=== PATIENT | male | born 1950 | race Caucasian/White ===

== ENCOUNTER 2016-08-31 15:18 | Emergency (ER) | payer MEDICARE, OTHER ==
[~2016-08-31] VITALS: Ht 180.3 cm; Wt 90.7 kg
[~2016-08-31 15:18] MED LIST: ASP325T NG; ASPI-999 PO; ATEN50TA PO; BENA1TAB12 PO; BENA1TAB3 PO; BENA20TA2 PO; BNZ20T PO; DABI150C5 PO; DILT120C85 PO; DILT240C PO; FEBU80TA PO; HYDR-2890 PO; OXYC-471 PO; SIMV20TA3 PO
[2016-08-31] MEDS ORDERED: BENA1TAB14 PO (15:50)
[2016-08-31] MEDS ORDERED: HYDR-3820 PO (15:50)
--- NOTE | 2016-08-31 16:30 | ED General ---
General Chief Complaint: Lower Extremity Stated Complaint: SWELLING IN FEET Nursing Triage Note: BILAT PEDAL EDEMA X2 WEEKS. Nursing Sepsis Screen: No Definite Risk Source of Information: Patient, Family Exam Limitations: No Limitations History of Present Illness Time Seen by Provider: 16:29 Allergies and Home Medications Allergies Coded Allergies: naproxen (Verified Allergy, RASH, 02/04/11) Home Medications Aspirin 81 Mg Tab.chew, 81 MG PO DAILY, (Reported) Atenolol 50 Mg Tablet, 50 MG PO DAILY, (Reported) Benazepril/Hydrochlorothiazide 1 Each Tablet, 1 EACH PO DAILY, (Reported) Dabigatran Etexilate Mesylate 150 Mg Capsule, 150 MG PO BID, (Reported) Diltiazem HCl 120 Mg Capsule.er, 120 MG PO HS, (Reported) Diltiazem Hcl 240 Mg Cap.sr.24h, 240 MG PO DAILY, (Reported) Hydrocodone/Acetaminophen 1 Each Tablet, 2 EACH PO DAILY, (Reported) Simvastatin 20 Mg Tablet, 20 MG PO HS, (Reported) Past Zemeeje-Zqoylw-Yhdurq Hx Patient Social History Alcohol Use: Regular Use Recreational Drug Use: Yes (POT) Smoking Status: Former Smoker Recent Foreign Travel: No Contact w/Someone Who Travel: No Recent Infectious Disease Expo: No Recent Hopitalizations: Yes Surgeries HX Surgeries: Yes (left hip replaced , cataracts, spinal (laminectomy)) Respiratory Hx Respiratory Disorders: No Cardiovascular Hx Cardiac Disorders: Yes Cardiac Disorders: Atrial Fibrillation, Heart Attack Neurological Hx Neurological Disorders: No Reproductive System Hx Reproductive Disorders: No Genitourinary Hx Genitourinary Disorders: No Gastrointestinal Hx Gastrointestinal Disorders: No Musculoskeletal Hx Musculoskeletal Disorders: Yes (right shoulder) Musculoskeletal Disorders: Arthritis, Chronic Back Pain Endocrine Hx Endocrine Disorders: No HEENT HX ENT Disorders: No Hearing Impairment: Hard of Hearing Cancer Hx Cancer: No Psychosocial Hx Psychiatric Problems: No Integumentary HX Skin/Integumentary Disorder: No Blood Transfusions Hx Blood Disorders: No Physical Exam Vital Signs Vital Sign - Last 12Hours 08/31/16 15:43 Temp 98.0 Pulse 94 Resp 16 B/P (MAP) 137/86 Pulse Ox 98 Capillary Refill : Less Than 3 Seconds Progress/Results/Core Measures Results/Orders Lab Results Laboratory Tests Test 08/31/16 16:50 08/31/16 16:54 Range/Units Urine Color YELLOW Urine Clarity CLEAR Urine pH 6 5-9 Urine Specific [place] 1.020 1.016-1.022 Urine Protein 1+ H NEGATIVE Urine Glucose (UA) NEGATIVE NEGATIVE Urine Ketones 1+ H NEGATIVE Urine Nitrite NEGATIVE NEGATIVE Urine Bilirubin NEGATIVE NEGATIVE Urine Urobilinogen NORMAL NORMAL MG/DL Urine Leukocyte Esterase 1+ H NEGATIVE Urine RBC (Auto) 5+ H NEGATIVE Urine RBC 25-50 H /HPF Urine WBC 10-25 H /HPF Urine Squamous Epithelial Cells RARE /HPF Urine Crystals NONE /LPF Urine Bacteria FEW H /HPF Urine Casts PRESENT /LPF Urine Hyaline Casts 5-10 H /LPF Urine Mucus NEGATIVE /LPF Urine Culture Indicated NO White Blood Count 6.8 4.3-11.0 10^3/uL Red Blood Count 3.40 L 4.35-5.85 10^6/uL Hemoglobin 11.3 L 13.3-17.7 G/DL Hematocrit 34 L 40-54 % Mean Corpuscular Volume 100 H 80-99 FL Mean Corpuscular Hemoglobin 33 25-34 PG Mean Corpuscular Hemoglobin Concent 33 32-36 G/DL Red Cell Distribution Width 15.4 H 10.0-14.5 % Platelet Count 240 130-400 10^3/uL Mean Platelet Volume 9.3 7.4-10.4 FL Neutrophils (%) (Auto) 65 42-75 % Lymphocytes (%) (Auto) 24 12-44 % Monocytes (%) (Auto) 10 0-12 % Eosinophils (%) (Auto) 1 0-10 % Basophils (%) (Auto) 1 0-10 % Neutrophils # (Auto) 4.5 1.8-7.8 X 10^3 Lymphocytes # (Auto) 1.6 1.0-4.0 X 10^3 Monocytes # (Auto) 0.7 0.0-1.0 X 10^3 Eosinophils # (Auto) 0.0 0.0-0.3 10^3/uL Basophils # (Auto) 0.0 0.0-0.1 10^3/uL Prothrombin Time 18.2 H 12.2-14.7 SEC INR Comment 1.5 H 0.8-1.4 Activated Partial Thromboplast Time 58 H 24-35 SEC Sodium Level 142 135-145 MMOL/L Potassium Level 3.9 3.6-5.0 MMOL/L Chloride Level 103 98-107 MMOL/L Carbon Dioxide Level 23 21-32 MMOL/L Anion Gap 16 H 5-14 MMOL/L Blood Urea Nitrogen 21 H 7-18 MG/DL Creatinine 1.03 0.60-1.30 MG/DL Estimat Glomerular Filtration Rate > 60 BUN/Creatinine Ratio 20 Glucose Level 101 70-105 MG/DL Calcium Level 9.1 8.5-10.1 MG/DL Magnesium Level 1.8 1.8-2.4 MG/DL Total Bilirubin 0.7 0.1-1.0 MG/DL Aspartate Amino Transf (AST/SGOT) 80 H 5-34 U/L Alanine Aminotransferase (ALT/SGPT) 39 0-55 U/L Alkaline Phosphatase 117 40-136 U/L Troponin I < 0.30 <0.30 NG/ML B-Type Natriuretic Peptide 355.7 H <100.0 PG/ML Total Protein 7.2 6.4-8.2 G/DL Albumin 4.2 3.2-4.5 G/DL TSH [place] Testing 1.03 0.35-4.94 UIU/ML My Orders Orders - MARCELLO LA PA BNP (08/31/16 16:40) Cbc With Automated Diff (08/31/16 16:40) Comprehensive Metabolic Panel (08/31/16 16:40) Magnesium (08/31/16 16:40) Protime With Inr (08/31/16 16:40) Partial Thromboplastin Time (08/31/16 16:40) Thyroid Analyzer (08/31/16 16:40) Troponin I (08/31/16 16:40) Ua Culture If Indicated (08/31/16 16:40) Saline Lock/Iv-Start (08/31/16 16:40) Ekg Tracing (08/31/16 16:40) Chest 1 View, Ap/Pa Only (08/31/16 16:40) Furosemide Tablet (Lasix Tablet) (08/31/16 18:00) Vital Signs/I&O Vital Sign - Last 12Hours 08/31/16 15:43 Temp 98.0 Pulse 94 Resp 16 B/P (MAP) 137/86 Pulse Ox 98 Blood Pressure Mean: 103 Departure Impression Impression: Primary Impression: Pedal edema Additional Impressions: Hematuria Volume depletion Disposition: 01 HOME, SELF-CARE Condition: Improved Departure-Patient Inst. Decision time for Depature: 17:55 Referrals: LONDON RIVERS MD (PCP/Family) Primary Care Physician Patient Instructions: Blood in the Urine (Hematuria) in Adults, Dehydration, Adult (DC), Dependent Edema (DC) Add. Discharge Instructions: All discharge instructions reviewed with patient and/or family. Voiced understanding. Medications as instructed. Continue usual home medications. Drink plenty of fluids. Alternate water and Powerade/Gatorade. Elevate the lower extremities above the level of the heart. Wear support socks throughout the day, you may remove them at bedtime. Follow-up with your family practitioner for recheck and repeat urine testing this week. Call Friday for appointment time. Return to the emergency department for worsened swelling, pain, blood in the urine, fever, shortness of air, chest pain, or any other concerns. Scripts Potassium Chloride (Potassium Chloride) 20 Meq Tablet.er 20 MEQ PO DAILY for 2 Days, #2 TAB 0 Refills Prov: MARCELLO LA 08/31/16 Furosemide (Lasix) 40 Mg Tablet 40 MG PO DAILY for 2 Days, #2 TAB 0 Refills Prov: MARCELLO LA 08/31/16 MARCELLO LA August 31, 2016 16:30
[2016-08-31 17:01] LABS: BASOPHILS % (AUTO) 1 % (0-10); EOSINOPHILS % (AUTO) 1 % (0-10); LYMPHOCYTES # (AUTO) 1.6 X 10^3 (1.0-4.0); LYMPHOCYTES % (AUTO) 24 % (12-44); MEAN CORPUSCULAR HEMOGLOBIN 33 PG (25-34); MEAN CORPUSCULAR HGB CONC 33 G/DL (32-36); MEAN CORPUSCULAR VOLUME 100 FL (80-99); MEAN PLATELET VOLUME 9.3 FL (7.4-10.4); MONOCYTES # (AUTO) 0.7 X 10^3 (0.0-1.0); MONOCYTES % (AUTO) 10 % (0-12); NEUTROPHILS # (AUTO) 4.5 X 10^3 (1.8-7.8); NEUTROPHILS % (AUTO) 65 % (42-75); PLATELET COUNT 240 10^3/uL (130-400); RED CELL DISTRIBUTION WIDTH 15.4 % (10.0-14.5); WHITE BLOOD COUNT 6.8 10^3/uL (4.3-11.0)
[2016-08-31 17:03] LABS: BILIRUBIN,URINE NEGATIVE (NEGATIVE); KETONES,URINE 1+ (NEGATIVE); LEUKOCYTE ESTERASE ,URINE 1+ (NEGATIVE); NITRITE,URINE NEGATIVE (NEGATIVE); PH,URINE 6 (5-9); PROTEIN,URINE 1+ (NEGATIVE); UROBILINOGEN,URINE NORMAL (NORMAL)
[2016-08-31 17:11] LABS: SQUAMOUS EPITHELIAL CELL,UR RARE /HPF
[2016-08-31 17:12] LABS: INR 1.5 (0.8-1.4); PROTHROMBIN TIME PATIENT 18.2 SEC (12.2-14.7)
--- NOTE | 2016-08-31 17:12 | Diagnostic Imaging Report ---
INDICATION: Bilateral ankle swelling for 2-3 weeks. COMPARISON STUDIES: None. FINDINGS: A portable upright view of the chest demonstrates the heart size at the upper limits of normal. There is calcification of the aorta. Postoperative changes are present in the right shoulder and degenerative changes are seen in the left shoulder. The vascularity is normal. The lungs are clear. There are no pleural effusions. IMPRESSION: Arteriosclerosis is present with borderline cardiomegaly. Dictated by: Dictated on workstation # [id number]
[2016-08-31 17:22] LABS: ALANINE AMINOTRANSFERASE 39 U/L (0-55); ALBUMIN 4.2 G/DL (3.2-4.5); ANION GAP 16 MMOL/L (5-14); ASPARTATE AMINO TRANSFERASE 80 U/L (5-34); BILIRUBIN,TOTAL 0.7 MG/DL (0.1-1.0); BLOOD UREA NITROGEN 21 MG/DL (7-18); BUN/CREATININE RATIO 20; CALCIUM 9.1 MG/DL (8.5-10.1); CARBON DIOXIDE 23 MMOL/L (21-32); CHLORIDE 103 MMOL/L (98-107); CREATININE SERUM 1.03 MG/DL (0.60-1.30); GFR ESTIMATED > 60; GLUCOSE 101 MG/DL (70-105); MAGNESIUM 1.8 MG/DL (1.8-2.4); POTASSIUM 3.9 MMOL/L (3.6-5.0); SODIUM 142 MMOL/L (135-145); TOTAL PROTEIN 7.2 G/DL (6.4-8.2)
[2016-08-31 17:42] LABS: TROPONIN I < 0.30 NG/ML (<0.30)
[2016-08-31] MEDS ORDERED: FURO-124 PO (17:57)
[2016-08-31] MEDS ORDERED: POTA-51 PO (17:57)
[2016-08-31] MEDS ORDERED: FUROSEMIDE 40 MG (LASIX) TAB PO ONE (18:00)
[2016-08-31] MEDS ORDERED: FUROSEMIDE 20 MG (LASIX) TAB PO ONE (18:00)
[2016-08-31 18:06] VITALS: BP 150/85
== END 2016-08-31 18:06 | disposition home or self-care (01) ==
LOC: EDUNIT# 15:18 → ER 15:20
DX: R60.0 Localized edema (principal); E86.9 Volume depletion, unspecified; R31.29 Other microscopic hematuria; I25.2 Old myocardial infarction; I48.2 Chronic atrial fibrillation; Z79.84 Long term (current) use of oral hypoglycemic drugs; Z79.899 Other long term (current) drug therapy
CPT/HCPCS: 36415; 71010; 80053; 81000; 83735; 83880; 84443; 84484; 85025; 85610; 85730; 93005

== ENCOUNTER → 2016-09-03 | Outpatient (CLI) | payer MEDICARE, OTHER ==
[~2016-09-03] MED LIST changes: +BENA1TAB14 PO; +FURO-124 PO; +HYDR-3820 PO; +POTA-51 PO
--- NOTE | 2016-09-03 17:59 | Diagnostic Imaging Report ---
Exam: Three views of the lumbar spine. Indication: Back pain. Findings: There is slight straightening of the lumbar spine curvature. The vertebral body heights are preserved. There is severe disc height loss at lower disc levels. There is a 9 mm calcification in the left flank. There is a small posterior osteophyte formation in the lower lumbar spine and small anterior osteophytes. Partially visualized left hip replacement is seen. SI joints demonstrate vacuum phenomenon and subchondral degenerative sclerosis. Impression: 1. Advanced lower lumbar spine disc degenerative changes. 2. Indeterminate 9 mm left flank calcification. If the patient has left flank pain, then correlate with CT abdomen and pelvis, renal stone protocol to rule out a stone around the left UPJ. Dictated by: Dictated on workstation # [id number]
== END ==
LOC: RAD 13:55
PROVIDERS: ATTEND Family Medicine
DX: M47.816 Spondylosis without myelopathy or radiculopathy, lumbar region (principal)
CPT/HCPCS: 72100

== ENCOUNTER → 2017-02-24 | Outpatient (CLI) | payer MEDICARE, OTHER ==
[~2017-02-24] MED LIST changes: +DILT240C53 PO; +FURO-125 PO
--- NOTE | 2017-02-24 19:13 | Diagnostic Imaging Report ---
INDICATION: Ureteral calculus. Comparison made to study from 09/03/2016. FINDINGS: There is an 8 mm calcification just lateral to the inferior aspect of the L4 vertebral body. Some calcification was present on prior study from 09/03/2016. There are no additional calculi seen. IMPRESSION: Calcification left of the L4 vertebral body could be a ureteral calculus. There is a similar opacity present previously. Dictated by: Dictated on workstation # [id number]
== END ==
LOC: RAD 14:58
PROVIDERS: ATTEND Urology
DX: N20.1 Calculus of ureter (principal)
CPT/HCPCS: 74000

== ENCOUNTER 2017-02-26 13:00 | Outpatient (CLI) | payer MEDICARE, OTHER ==
[~2017-02-26] VITALS: Ht 180.3 cm; Wt 97.5 kg
== END 2017-02-26 13:04 ==
LOC: PREOP 13:00
PROVIDERS: ATTEND Urology
DX: Z01.818 Encounter for other preprocedural examination (principal); N20.1 Calculus of ureter

== ENCOUNTER 2017-03-04 06:53 | Day surgery (SDC) | payer MEDICARE, OTHER ==
[~2017-03-04] VITALS: Ht 180.3 cm; Wt 97.5 kg
[2017-03-04] MEDS ORDERED: LACTATED RINGERS 1,000 ML IV PRN (07:07)
[2017-03-04 07:16] VITALS: BP 119/72
[2017-03-04] MEDS ORDERED: cefTRIAXone 1 GM (ROCEPHIN) VIAL ONE (07:17)
[2017-03-04] MEDS ORDERED: NS (IVPB) 50 ML ONE (07:17)
[2017-03-04] MEDS ORDERED: cefTRIAXone INJECTION 1,000 MG in NS (IVPB) 50 ML IV ONE (07:45)
--- NOTE | 2017-03-04 07:50 | Diagnostic Imaging Report ---
EXAM: ABDOMEN/KUB 1VIEW INDICATION: Ureteroscopy COMPARISON: Abdominal radiograph 02/24/2017. FINDINGS: Stable calcified opacity measuring up to 0.8 cm along the left inferior endplate of L4. Nonspecific bowel gas pattern. Advanced degenerative changes in the lumbar spine. Partially visualized left GEOFF. No acute osseous findings. IMPRESSION: There is stable calcific opacity along the left inferior endplate of L4. Dictated by: Dictated on workstation # [id number]
[2017-03-04] MEDS ORDERED: proPOfol 200 MG/20 ML (DIPRIVAN) VIAL IV ONE (08:02)
[2017-03-04] MEDS ORDERED: LIDOCAINE PF 2% 5 ML (XYLOCAINE) VIAL ONE (08:02)
[2017-03-04] MEDS ORDERED: SEVOFLURANE (ULTANE) 15 ML INHAL SOLN ONE ×2 (08:02→08:37)
[2017-03-04] MEDS ORDERED: ONDANSETRON 4 MG/2 ML (SDV) Z0FRAN ONE (08:02)
[2017-03-04] MEDS ORDERED: MIDAZOLAM 2 MG/2 ML (VERSED) VIAL ONE (08:03)
[2017-03-04] MEDS ORDERED: fentaNYL INJECTION 100 MCG/2 ML AMP ONE (08:04)
--- NOTE | 2017-03-04 08:12 | Progress Note-Pre Operative ---
Pre-Operative Progress Note H&P Reviewed The H&P was reviewed, patient examined and no changes noted. Date Seen by Provider: Mar 04, 2017 Time Seen by Provider: 08:12 Date H&P Reviewed: Mar 04, 2017 Time H&P Reviewed: 08:12 Pre-Operative Diagnosis: LT URETERAL STONE JEREMY JUDGE MD Mar 04, 2017 8:12 am
--- NOTE | 2017-03-04 08:13 | Progress Note-Post Operative ---
Post-Operative Progess Note Surgeon (s)/Tool Machine Shop Supervisor (s) Surgeon JEREMY JUDGE MD Tool Machine Shop Supervisor: N/A Pre-Operative Diagnosis LT PROXIMAL URETERAL STONE AND LT DISTAL URETERAL OBSTRUCTION ?CAUSE Post-Operative Diagnosis SAME AND LT DISTAL URETERAL STRICTURE Procedure & Operative Findings Date of Procedure 03/04/17 Procedure Performed/Findings CYSTOSCOPY, LT RETROGRADE UROGRAM AND LT URETEROSCOPY Anesthesia Type GENERAL Estimated Blood Loss Estimated blood loss (mL): N/A Specimens/Packing Specimens Removed N/A Packing: N/A JEREMY JUDGE MD Mar 04, 2017 8:13 am
--- NOTE | 2017-03-04 09:07 | Discharge Inst-Urology ---
Discharge Inst-Urology Discharge Medications New, Converted, or Re-newed RX: RX on Chart Patient Instructions/Follow Up Plan Please make appointment to been seen in office next week. to contact Dr Covington office regarding resuming or changing Pradaxa Increase oral fluids for 48 hours and then as needed. Diet and Activity as tolerated. If questions or concerns contact your physician Or seek help at emergency department. JEREMY JUDGE MD Mar 04, 2017 9:07 am
[2017-03-04 09:50] VITALS: BP 116/85
[2017-03-04 10:20] VITALS: BP 123/90
[2017-03-04 10:50] VITALS: BP 138/98
[2017-03-04 10:54] VITALS: BP 138/98
--- NOTE | 2017-03-04 18:33 | OPERATIVE REPORT ---
DATE OF SERVICE: 03/04/2017 PREOPERATIVE DIAGNOSES: 1. Left proximal ureteral stone. 2. Left distal ureteral obstruction. POSTOPERATIVE DIAGNOSES: 1. Left proximal ureteral stone. 2. Left distal ureteral obstruction. 3. Left distal ureteral stricture. OPERATIONS PERFORMED: Cystoscopy, left retrograde urogram and left ureteroscopy. SURGEON: Juan Judge MD. ANESTHESIA: General. COMPLICATIONS: None. DESCRIPTION OF PROCEDURE: Under satisfactory general anesthesia, the patient in lithotomy position, genitalia were prepped and draped in usual sterile fashion. A 23-Serbian cystoscope was introduced under vision. The anterior urethra was normal. The prostate was mildly enlarged with some mild obstruction. The bladder revealed some floor cystitis. No bladder tumor or stone visualized. Ureteric orifices were normal in shape, size and configuration with clear efflux, very sluggish on the left side. Using the foroblique lens, I attempted to pass ureteral catheter but was unsuccessful. So I inserted a cone-tipped ureteral catheter and injected contrast, visualized was a very distal ureteral stricture about 1 cm and very narrowed. I removed the catheter. There was no significant emptying of the system at all. There was also some dilatation of the ureter below the stricture. I removed the cystoscope, inserted a 6.9-Serbian semi-rigid ureteroscope, entered the left ureteral orifice intramural portion, visualized a stricture which is completely closed and was unable to pass anything through it. I discontinued further attempt, reinserted the cystoscope to empty the bladder. The patient tolerated the procedure and anesthesia well and was sent to recovery room in stable condition. PLAN: I discussed the plan with the and later on with the patient when I will see him in my office next week. We referred him to [facility] for possible balloon dilatation of the stricture and stenting with flexible ureteroscopy of the laser of this proximal stone. If that failed or unable to perform, the patient is going to need a reimplantation and tailoring of the ureter along with the stones procedure. The patient will resume his Pradaxa; however, his was saying that he did not like the side effects of Pradaxa, may be consider Eliquis. She will contact Dr. Covington to discuss the switch. Job ID: [id number] DocumentID: [id number] Dictated Date: 03/04/2017 09:05:18 Seat Cover Maker Date: 03/04/2017 17:16:50 Dictated By: JUAN JUDGE MD
--- NOTE | 2017-03-04 21:51 | Diagnostic Imaging Report ---
EXAM: 2 views of the abdomen. INDICATION: Left ureteric stone. FINDINGS: There is contrast seen in the distal left ureter. There is severe stricture seen within the distal ureter. Although this is a single image, there is the suggestion of 2 other strictures, one at the UVJ and the other stricture about 7 cm proximal to the UVJ. IMPRESSION: Severe distal left ureteric strictures. Dictated by: Dictated on workstation # [id number]
== END 2017-03-04 10:54 | disposition home or self-care (01) ==
LOC: SDC 06:53
PROVIDERS: ATTEND Urology
DX: N13.5 Crossing vessel and stricture of ureter without hydronephrosis (principal); N20.2 Calculus of kidney with calculus of ureter; N40.0 Benign prostatic hyperplasia without lower urinary tract symptoms; I48.91 Unspecified atrial fibrillation; M16.12 Unilateral primary osteoarthritis, left hip; I10 Essential (primary) hypertension; Z87.891 Personal history of nicotine dependence; Z79.82 Long term (current) use of aspirin; Z79.899 Other long term (current) drug therapy
CPT/HCPCS: 74000; 87081

== ENCOUNTER → 2017-12-10 | Outpatient (CLI) | payer MEDICARE, OTHER ==
[~2017-12-10] MED LIST changes: -BENA20TA2 PO; +BENA20TA7 PO
--- NOTE | 2017-12-10 14:33 | Diagnostic Imaging Report ---
INDICATION: Bilateral breast lumps. COMPARISON: No prior mammograms are available for comparison. TECHNIQUE: 2D and 3D bilateral diagnostic mammography was performed with CAD. FINDINGS: There is moderate fibroglandular tissue in the retroareolar regions bilaterally, suggestive of gynecomastia. No discrete mass or suspicious calcifications are seen. The axillae are unremarkable. IMPRESSION: There is moderate density in the retroareolar portions of both breasts, suggestive of gynecomastia. Sonographic interrogation of the retroareolar regions bilaterally is recommended and will be performed today. ACR BI-RADS Category 0: Incomplete. (Needs additional imaging evaluation). Result letter will be mailed to the patient. Note: At least 10% of breast cancer is not imaged by mammography. Dictated by: Dictated on workstation # [id number]
--- NOTE | 2017-12-10 14:34 | Diagnostic Imaging Report ---
INDICATION: Bilateral breast pain and retroareolar lumps. COMPARISON: Correlation is with the diagnostic mammogram from earlier this same day. TECHNIQUE: Sonographic interrogation of the retroareolar regions bilaterally was performed. FINDINGS: Ill-defined hypoechogenicity in the retroareolar regions is seen bilaterally, corresponding to the density noted on mammography. This has the appearance of gynecomastia. No discrete mass is seen. No fluid collection is identified. IMPRESSION: The features are most consistent with bilateral gynecomastia. ACR BI-RADS Category 2: Benign findings. Dictated by: Dictated on workstation # [id number]
== END ==
LOC: RAD 12:25
PROVIDERS: ATTEND Family Medicine
DX: N63.41 Unspecified lump in right breast, subareolar (principal); N63.42 Unspecified lump in left breast, subareolar; N64.4 Mastodynia
CPT/HCPCS: 76642; 77066

== ENCOUNTER → 2018-02-11 | Outpatient (CLI) | payer MEDICARE, OTHER ==
[2018-02-11 12:46] LABS: BASOPHILS # (AUTO) 0.1 10^3/uL (0.0-0.1); BASOPHILS % (AUTO) 0 % (0-10); EOSINOPHILS % (AUTO) 0 % (0-10); HEMATOCRIT 28 % (40-54); HEMOGLOBIN 9.1 G/DL (13.3-17.7); LYMPHOCYTES % (AUTO) 8 % (12-44); MEAN CORPUSCULAR HGB CONC 33 G/DL (32-36); MEAN CORPUSCULAR VOLUME 84 FL (80-99); MEAN PLATELET VOLUME 9.7 FL (7.4-10.4); MONOCYTES # (AUTO) 1.3 X 10^3 (0.0-1.0); MONOCYTES % (AUTO) 11 % (0-12); NEUTROPHILS # (AUTO) 9.9 X 10^3 (1.8-7.8); NEUTROPHILS % (AUTO) 81 % (42-75); PLATELET COUNT 485 10^3/uL (130-400); RED BLOOD COUNT 3.31 10^6/uL (4.35-5.85); WHITE BLOOD COUNT 12.2 10^3/uL (4.3-11.0)
[2018-02-11 12:48] LABS: MEAN CORPUSCULAR HEMOGLOBIN 27 PG (25-34)
[2018-02-11 12:59] LABS: INR 1.5 (0.8-1.4); PROTHROMBIN TIME PATIENT 17.8 SEC (12.2-14.7)
[2018-02-11 13:05] LABS: ALBUMIN 3.2 GM/DL (3.2-4.5); BILIRUBIN,TOTAL 0.9 MG/DL (0.1-1.0); CREATININE SERUM 1.65 MG/DL (0.60-1.30); POTASSIUM 5.5 MMOL/L (3.6-5.0); TOTAL PROTEIN 6.9 GM/DL (6.4-8.2)
--- NOTE | 2018-02-11 14:26 | Diagnostic Imaging Report ---
PROCEDURE: CT abdomen and pelvis without contrast. TECHNIQUE: Multiple contiguous axial images were obtained through the abdomen and pelvis without the use of intravenous contrast. INDICATION: Weight gain and ascites. COMPARISON: Comparison is made with prior CT from 02/14/2017. FINDINGS: Lung bases are clear of acute infiltrates. Patient has developed large amount of abdominal and pelvic ascites since prior CT. No discrete liver mass is identified. No biliary ductal dilatation is identified. The gallbladder is unremarkable. Pancreas is unremarkable. The spleen is normal in size. No adrenal mass is identified. Left-sided hydroureteronephrosis is again noted. Previously noted stone has progressed down the left ureter and is located in the pelvis. Stone measures 9 mm. This is several centimeters proximal to the UVJ. No bladder calculi are seen. The prostate is unremarkable. Aorta is calcified but nonaneurysmal. Postsurgical changes to the left hip are noted. Bony structures appear nonacute. IMPRESSION: 1. Development of large abdominal and pelvic ascites since prior CT one year earlier. No discrete liver mass is seen. No definite varices or splenomegaly is identified. 2. Significant left hydroureteronephrosis. There is a 9 mm stone in the distal left ureter 2-3 cm proximal to the UVJ. No other urinary tract calculi are seen. Dictated by: Dictated on workstation # [id number]
[2018-02-12 06:45] LABS: HEPATITIS C ANTIBODY C Non-Reactive (Non-Reactive)
== END ==
LOC: RAD 12:17
PROVIDERS: ATTEND Family Medicine
DX: N13.2 Hydronephrosis with renal and ureteral calculous obstruction (principal); R18.8 Other ascites; R94.5 Abnormal results of liver function studies; F10.20 Alcohol dependence, uncomplicated; R63.5 Abnormal weight gain
CPT/HCPCS: 36415; 74176; 80053; 85025; 85610; 86803

== ENCOUNTER → 2018-02-13 | Outpatient (CLI) | payer MEDICARE, OTHER ==
[~2018-02-13] VITALS: Ht 180.3 cm; Wt 110.7 kg
[~2018-02-13] MED LIST changes: +ALBUMIN 25% 25 GM/100 ML 100 ML IV ONE; +LIDOCAINE 1% INJ 20 ML 20 ML VIAL INJ ONE
[2018-02-13 11:47] LABS: AMYLASE 55 U/L (25-125); GLUCOSE 104 MG/DL (70-105)
[2018-02-13 14:44] LABS: AMYLASE,BODY FLUID 25 U/L; GLUCOSE,BODY FLUID 93 MG/DL; LDH,BODY FLUID 78 U/L; TOTAL PROTEIN,BODY FLUID 1.8 G/DL
[2018-02-13 14:51] LABS: BF OTHER CELLS 49 %; BODY FLUID APPEARENCE SLT CLDY; BODY FLUID COLOR YELLOW; BODY FLUID RBC COUNT 48 /uL; BODY FLUID SOURCE PERITON; BODY FLUID WBC TOTAL COUNT 120 /uL; LYMPHOCYTES,BODY FLUID 40 %
--- NOTE | 2018-02-13 15:11 | Diagnostic Imaging Report ---
INDICATION: Ascites. TECHNIQUE: The patient was brought to the procedure room and placed on the table in the supine position. Ultrasound imaging over the abdomen was performed to evaluate for an appropriate entry site. The right lower quadrant was prepped and draped in the usual sterile fashion. A small amount of 1% lidocaine was utilized for local anesthesia. A 6 Mongolian paracentesis catheter was advanced into the right lower quadrant peritoneal space. A total of 9300 mL of serous fluid was removed. The catheter was withdrawn and hemostasis was obtained. The patient was given 50 mg of albumin following the procedure. The patient tolerated the procedure well and left the Department in stable condition. IMPRESSION: Ultrasound guided paracentesis obtaining 9300 mL of fluid. Dictated by: Dictated on workstation # [id number]
== END ==
LOC: RAD 10:42
PROVIDERS: ATTEND Family Medicine
DX: R18.8 Other ascites (principal); R73.01 Impaired fasting glucose
CPT/HCPCS: 36415; 49083; 80320; 82150; 82570; 82945; 82947; 83615; 84157; 87070; 87075; 87101; 87205; 88112; 88305; 89051

== ENCOUNTER → 2018-03-09 | Outpatient (CLI) | payer MEDICARE, OTHER ==
[~2018-03-09] VITALS: Ht 180.3 cm; Wt 101.2 kg
[~2018-03-09] MED LIST changes: +LIDOCAINE 1% INJ 20 ML 20 ML VIAL ONE
--- NOTE | 2018-03-09 14:33 | Diagnostic Imaging Report ---
Indication: Ascites. Patient presents for ultrasound-guided paracentesis. The patient was brought to the procedure room and placed on the table in supine position. Ultrasound imaging over the abdomen was performed to evaluate appropriate entry site. The right lower quadrant was prepped and draped in usual sterile fashion. Small amount of 1% lidocaine was utilized for local anesthesia. A paracentesis catheter was advanced into the right lower quadrant peritoneal space. Total of 9600 mL of fluid was removed. Catheter was withdrawn. Hemostasis was obtained. The patient was given 50 g of albumin following the procedure. Patient tolerated the procedure well and left the department in stable condition. Impression: Ultrasound-guided paracentesis obtaining 9600 mL of fluid. Dictated by: Dictated on workstation # [id number]
== END ==
LOC: RAD 10:06
PROVIDERS: ATTEND Family Medicine
DX: R18.8 Other ascites (principal)
CPT/HCPCS: 49083

== ENCOUNTER 2018-04-30 11:12 | Outpatient (RCR) | payer MEDICARE, OTHER ==
[~2018-04-30] VITALS: Ht 180.3 cm; Wt 91.6 kg
[~2018-04-30 11:12] MED LIST changes: -ALBUMIN 25% 25 GM/100 ML 100 ML IV ONE; -LIDOCAINE 1% INJ 20 ML 20 ML VIAL ONE
[2018-04-30] MEDS ORDERED: ALBUMIN 25% 25 GM/100 ML 100 ML IV ONE (12:15)
--- NOTE | 2018-04-30 13:39 | Diagnostic Imaging Report ---
INDICATION: Ascites. Patient presents for ultrasound-guided paracentesis. Patient was brought to the procedure room and placed on the table in the supine position. Ultrasound imaging over the abdomen was performed to evaluate appropriate entry site. The right lower quadrant was then prepped and draped in usual sterile fashion. Small amount of 1% lidocaine was utilized for local anesthesia. All-purpose 7 Setswana catheter was advanced into the right lower quadrant peritoneal space . A total of 8 L of fluid was removed. The catheter was withdrawn and hemostasis was obtained using manual compression. Patient tolerated the procedure well and left the department in stable condition. IMPRESSION: Ultrasound guided paracentesis obtaining 8 L of fluid. Dictated by: Dictated on workstation # [id number]
== END 2018-06-21 | disposition home or self-care (01) ==
LOC: RAD 11:12
PROVIDERS: ATTEND Family Medicine
DX: K70.31 Alcoholic cirrhosis of liver with ascites (principal)
CPT/HCPCS: 49083

== ENCOUNTER → 2018-06-12 | Outpatient (CLI) | payer MEDICARE, OTHER ==
[~2018-06-12] VITALS: Ht 180.3 cm; Wt 91.6 kg
[~2018-06-12] MED LIST changes: -LIDOCAINE 1% INJ 20 ML 20 ML VIAL INJ ONE
[2018-06-12 08:58] LABS: INR 1.1 (0.8-1.4); PROTHROMBIN TIME PATIENT 13.8 SEC (12.2-14.7)
[2018-06-12] MEDS: LIDOCAINE 1% INJ 20 ML 20 ML VIAL INJ ONE (09:23)
[2018-06-12] MEDS: ALBUMIN 25% 25 GM/100 ML 100 ML IV ONE (10:15)
--- NOTE | 2018-06-12 12:39 | Diagnostic Imaging Report ---
Indication: Ascites. Patient presents for ultrasound-guided paracentesis. Patient was brought to the procedure room, placed on table in supine position. Ultrasound imaging over the abdomen was performed to evaluate appropriate injury site. A right lower quadrant was prepped and draped in usual sterile fashion. Small amount of 1% lidocaine was utilized for local anesthesia. An 8-Guamanian all-purpose catheter was advanced to the right lower quadrant peritoneal space. Total of 7 L of fluid was removed. Catheter was withdrawn and hemostasis was obtained using manual compression. Patient tolerated well and left the department in stable condition. Impression: Ultrasound-guided paracentesis obtaining 7 L of fluid. Dictated by: Dictated on workstation # [id number]
== END ==
LOC: RAD 08:22
PROVIDERS: ATTEND Family Medicine
DX: K70.31 Alcoholic cirrhosis of liver with ascites (principal)
CPT/HCPCS: 36415; 49083; 85610

== ENCOUNTER 2018-06-21 09:48 | Inpatient (IN) | payer MEDICARE, OTHER ==
[~2018-06-21] VITALS: Ht 180.3 cm; Wt 86.2 kg
--- OUTSIDE RECORDS SUMMARY | 2018-06-21 09:52 | XMS REPORT | Clinical Summary ---
Author Author [facility] Organization [facility] Address Unknown Phone Unavailable Care Team Providers Care Steel Box Toe Inserter Name Role Phone Julianne Paulson MD PCP Juan Rothman MD Unavailable Source Comments Some departments are not documenting in the electronic medical record. If you do not see the information that you expected, contact Release of Information in the Health Information Management department at [phone] for further assistance in locating additional records.[facility] Allergies Comments Active Allergy Reactions Severity Noted Date Naproxen HIVES Medium 04/08/2017 Medications End Date Status Medication Sig Dispensed Refills Start Date Active cetirizine (ZYRTEC) 10 mg Take 10 mg by 5 tablet mouth daily. 7 Active atenolol (TENORMIN) 100 Take 50 mg by 0 mg tablet mouth daily. 7 Active benazepril-hydrochlorthia Take by 3 zide (LOTENSIN HCT) mouth daily. 7 20-12.5 mg tablet Active XARELTO 20 mg tablet Take 20 mg by 3 mouth at 7 bedtime daily. Active CARTIA XT 240 mg capsule Take 240 mg 3 by mouth 7 twice daily. Active Problems Problem Noted Date Ureteral stricture, left 04/08/2017 Left nephrolithiasis 04/08/2017 Gross hematuria 04/08/2017 Elevated PSA 04/08/2017 Chronic atrial fibrillation 04/08/2017 Anticoagulated 04/08/2017 Family History Medical History Relation Name Comments High Cholesterol Father Stroke Father Arthritis-rheumatoid Mother Relation Name Status Comments Father Mother Social History Date Tobacco Use Types Packs/Day Years Used Quit: 04/08/2007 Former Smoker Cigarettes 1 Smokeless Tobacco: Never Used Alcohol Use Drinks/Week oz/Week Comments Yes 7 Cans of 4.2 beer Sex Assigned at Date Recorded Not on file Industry Job Start Date Occupation Not on file Not on file Not on file Travel End Travel History Travel Start No recent travel history available. Last Filed Vital Signs Time Taken Vital Sign Reading 04/08/2017 2:54 PM [employer] Blood Pressure 103/51 04/08/2017 2:54 PM [employer] Pulse 57 04/08/2017 2:54 PM [employer]LE [employer]ER Temperature 37 C (98.6 F) 04/08/2017 2:54 PM [employer] Respiratory Rate 18 04/08/2017 2:54 PM [employer]INDLE SANDER Oxygen Saturation 100% - Inhaled Oxygen - Concentration 04/08/2017 2:54 PM [employer]INDLE SANDER Weight 97 kg (213 lb 12.8 oz) 04/08/2017 2:54 PM [employer]INDLE [employer]ANDER Height 180.3 cm (5' 11") 04/08/2017 2:54 PM SPINDLE SANDER Body Mass Index 29.82 Plan of Treatment Health Maintenance Due Date Last Done Comments HEPATITIS C SCREENING 1950 PHYSICAL (COMPREHENSIVE) 1957 EXAM DTAP/TDAP VACCINES (1 - 1968 Tdap) COLORECTAL CANCER 2000 SCREENING SHINGLES RECOMBINANT 2000 VACCINE (1 of 2) ABDOMINAL AORTIC ANEURYSM 06/21/2015 SCREENING PNEUMONIA (PCV13/PPSV23) 06/21/2015 VACCINES (1 of 2 - PCV13) INFLUENZA VACCINE 11/05/2017 Results Not on filefrom Last 3 Months Insurance Payer Benefit Subscriber ID Type Phone Address Plan / Group MEDICARE MEDICARE xxxxxxxxxx Medicare PART A AND B BANKERS LIFE [employer] CASUALTY BANKERS xxxxxxxxxx Indemnity FIDELITY Advance Directives Patient has advance care planning documents on file. For more information, please contact: [facility] [address] [place] [address]
--- OUTSIDE RECORDS SUMMARY | 2018-06-21 09:53 | XMS REPORT | CCD ---
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 [place] Medicare Part B [id number] Unknown Family history Father Diagnosis Age At Onset Cancer Unknown Diabetes mellitus Type 1 Unknown Stroke Unknown Mother Diagnosis Age At Onset advanced age Unknown Sister Diagnosis Age At Onset Migraines Unknown Asthma Unknown Social History Social History Element Codes Description Effective Dates Tobacco history SNOMED CT: 4157369 Quit over 10 years ago occasionally smokes pot 02/16/2018 Marital status Unknown Vashti Valles 10/22/2016 Number of children Unknown 0 10/22/2016 Employment Unknown Retired 10/22/2016 Alcohol history Unknown occasionally drinks alcohol 10/22/2016 Frequency of drinks SNOMED CT: 627764888 10 drinks per week 10/22/2016 Has the patient ever used illegal drugs? Unknown Currently uses illegal drugs 10/22/2016 Allergies, Adverse Reactions, Alerts Substance Reaction Codes Entered Date Inactivated Date Status Naprosyn RxNorm: 7258 10/22/2016 No Inactive Date Active Past Medical History Illness Codes Condition Status Onset Date Resolved Date Alcoholic cirrhosis of liver with ascites ICD-9: 571.2 ICD-10: K70.31 Active 02/11/2018 Unknown Chronic atrial fibrillation ICD-9: 427.31 ICD-10: I48.2 Active 10/22/2016 Unknown Orthostatic hypotension ICD-9: 458.0 ICD-10: I95.1 Active 06/04/2018 Unknown Essential (primary) hypertension ICD-9: 401.1 ICD-10: I10 Active 11/11/2016 Unknown Other pruritus ICD-9: 698.8 ICD-10: L29.8 Active 03/19/2018 Unknown 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 coma ICD-9: 572.8 ICD-10: K70.40 Active 02/16/2018 Unknown Hypo-osmolality and hyponatremia ICD-9: 276.1 ICD-10: E87.1 Active 02/16/2018 Unknown Other specified abnormal findings of blood chemistry ICD-9: 790.99 ICD-10: R79.89 Active 02/16/2018 Unknown Abnormal levels of other serum enzymes ICD-9: 790.5 ICD-10: R74.8 Active 02/11/2018 Unknown Generalized abdominal pain ICD-9: 789.07 ICD-10: R10.84 Active 02/11/2018 Unknown Localized edema ICD-9 : 782.3 ICD-10: R60.0 Active 02/11/2018 Unknown Mastodynia ICD-9: 611.71 ICD-10: N64.4 Active 11/24/2017 Unknown Other specified abnormal findings of blood chemistry ICD-9: 790.6 ICD-10: R79.89 Active 06/19/2017 Unknown Adverse effect of diagnostic agents, initial encounter ICD-9: 995.27 ICD-10: T50.8X5A Active 06/10/2017 Unknown Asymptomatic microscopic hematuria ICD-9: 599.72 ICD-10: R31.21 Active 11/28/2016 Unknown Anemia, unspecified ICD-9: 285.9 ICD-10: D64.9 Active 11/11/2016 Unknown Impaired fasting glucose ICD-9: 790.21 ICD-10: R73.01 Active 11/11/2016 Unknown Other allergic rhinitis ICD-9: 477.8 ICD-10: J30.89 Active 10/22/2016 Unknown Vitamin D deficiency, unspecified ICD-9: 268.9 ICD-10: E55.9 Active 11/11/2016 Unknown Problems Condition Codes Effective Dates Condition Status Alcoholic cirrhosis of liver with ascites ICD-9: 571.2 ICD-10: K70.31 02/11/2018 Active Chronic atrial fibrillation ICD-9: 427.31 ICD-10: I48.2 10/22/2016 Active Orthostatic hypotension ICD-9: 458.0 ICD-10: I95.1 06/04/2018 Active Essential (primary) hypertension ICD-9: 401.1 ICD-10: I10 11/11/2016 Active Other pruritus ICD-9: 698.8 ICD-10: L29.8 03/19/2018 Active 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 coma ICD-9: 572.8 ICD-10: K70.40 02/16/2018 Active Hypo-osmolality and hyponatremia ICD-9: 276.1 ICD-10: E87.1 02/16/2018 Active Other specified abnormal findings of blood chemistry ICD-9: 790.99 ICD-10: R79.89 02/16/2018 Active Abnormal levels of other serum enzymes ICD-9: 790.5 ICD-10: R74.8 02/11/2018 Active Generalized abdominal pain ICD-9: 789.07 ICD-10: R10.84 02/11/2018 Active Localized edema ICD-9 : 782.3 ICD-10: R60.0 02/11/2018 Active Mastodynia ICD-9: 611.71 ICD-10: N64.4 11/24/2017 Active Other specified abnormal findings of blood chemistry ICD-9: 790.6 ICD-10: R79.89 06/19/2017 Active Adverse effect of diagnostic agents, initial encounter ICD-9: 995.27 ICD-10: T50.8X5A 06/10/2017 Active Asymptomatic microscopic hematuria ICD-9: 599.72 ICD-10: R31.21 11/28/2016 Active Anemia, unspecified ICD-9: 285.9 ICD-10: D64.9 11/11/2016 Active Impaired fasting glucose ICD-9: 790.21 ICD-10: R73.01 11/11/2016 Active Other allergic rhinitis ICD-9: 477.8 ICD-10: J30.89 10/22/2016 Active Vitamin D deficiency, unspecified ICD-9: 268.9 ICD-10: E55.9 11/11/2016 Active Medications Medication Codes Instructions Start Date Stop Date Status Fill Instructions diltiazem 30 mg tablet RxNorm: 958369 1 Tablet(s) PO TID 201812/30/2018 Active Xarelto 10 mg tablet RxNorm: 4549610 1 Tablet(s) PO daily 06/0412/30/2018 Active he will call when he needs this filled hydroxyzine HCl 25 mg tablet RxNorm: 893785 1 Tablet(s) PO TID as needed itching 03/23/2018 06/03/2018 Inactive hydroxyzine HCl 10 mg tablet RxNorm: 203746 1 Tablet(s) PO TID as needed itching 03/19/2018 03/22/2018 Inactive Cartia XT 120 mg capsule,extended release RxNorm: 555402 1 Capsule(s) PO daily 03/19/2018 06/03/2018 Inactive Lasix 20 mg tablet RxNorm: 137499 1 Tablet(s) PO BID 201706/03/2018 Inactive potassium chloride ER 10 mEq capsule,extended release RxNorm: 441540 1 Capsule(s) PO daily 02/11/2018 02/15/2018 Inactive Xarelto 20 mg tablet RxNorm: 1132778 1 Tablet(s) PO daily -Managed by Dr. Hurley 02/11/2018 06/03/2018 Inactive Lasix 20 mg tablet RxNorm: 309026 TAKE 1 TABLET BY MOUTH EVERY MORNING NEEDED FOR EDEMA 07/17/2017 10/14/2017 Inactive Phenergan-Codeine 6.25 mg-10 mg/5 mL syrup RxNorm: 819924 5-10 Milliliter(s) PO Q6 as needed cough 06/10/2017 No Stop Date Active losartan 50 mg-hydrochlorothiazide 12.5 mg tablet RxNorm: 270287 1 Tablet(s) PO daily 06/10/2017 03/18/2018 Inactive Kenalog 40 mg/mL suspension for injection RxNorm: 9296403 1 Milliliter(s) Inj 06/10/2017 06/10/2017 Inactive atenolol 50 mg tablet RxNorm: 253313 1 Tablet(s) PO daily 201706/03/2018 Inactive atenolol 50 mg tablet RxNorm: 362766 1 Tablet(s) PO daily 201605/29/2017 Inactive simvastatin 20 mg tablet RxNorm: 857561 TAKE 1 TABLET BY MOUTH EVERY NIGHT AT BEDTIME 02/24/2017 08/22/2017 Inactive Zyrtec 10 mg tablet RxNorm: 8561627 1 TABLET(S) PO DAILY 02/1708/15/2017 Inactive Cartia XT 240 mg capsule,extended release RxNorm: 952921 1 Capsule(s) PO daily 01/20/2017 03/18/2018 Inactive diltiazem 120 mg tablet RxNorm: 383673 1 Tablet(s) PO QHS 11/2606/09/2017 Inactive Vitamin D2 50,000 unit capsule RxNorm: 933934 1 Capsule(s) PO QW 11/15/2016 11/14/2016 Inactive take with vit d 2000 units daily Vitamin D2 50,000 unit capsule RxNorm: 578466 1 Capsule(s) PO QW 11/15/2016 02/06/2017 Inactive take with vit d 2000 units daily Kenalog 40 mg/mL suspension for injection RxNorm: 2405542 1 Milliliter(s) Inj 11/11/2016 11/11/2016 Inactive Pradaxa 150 mg capsule RxNorm: 7825778 TAKE ONE CAPSULE BY MOUTH TWICE DAILY 11/11/2016 06/09/2017 Inactive benazepril 20 mg-hydrochlorothiazide 12.5 mg tablet RxNorm: 395155 1 Tablet(s) PO daily 11/05/2016 06/09/2017 Inactive benazepril 20 mg-hydrochlorothiazide 12.5 mg tablet RxNorm: 513696 1 Tablet(s) PO daily 11/05/2016 11/04/2016 Inactive simvastatin 20 mg tablet RxNorm: 849556 TAKE 1 TABLET BY MOUTH EVERY NIGHT AT BEDTIME 10/24/2016 01/21/2017 Inactive Zyrtec 10 mg tablet RxNorm: 3551586 1 Tablet(s) PO daily 10/2211/20/2016 Inactive Pradaxa 150 mg capsule RxNorm: 7253776 1 Capsule(s) PO BID No Start Date 11/10/2016 Inactive Lasix 20 mg tablet RxNorm: 806927 1 Tablet(s) PO daily as needed No Start Date 07/16/2017 Inactive aspirin 81 mg chewable tablet RxNorm: 618453 1 Tablet(s) PO daily No Start Date 01/20/2017 Inactive Phenergan-Codeine 6.25 mg-10 mg/5 mL syrup RxNorm: 144475 5-10 Milliliter(s) PO Q6 as needed cough No Start Date 2017 Inactive diltiazem 120 mg tablet RxNorm: 928948 1 Tablet(s) PO daily No Start Date 11/25/2016 Inactive atenolol 50 mg tablet RxNorm: 289177 1 Tablet(s) PO daily No Start Date 03/16/2017 Inactive Xarelto 20 mg tablet RxNorm: 0038638 1 Tablet(s) PO daily -Managed by Dr. Hurley No Start Date 02/10/2018 Inactive Cartia XT 240 mg capsule,extended release RxNorm: 866150 1 Capsule(s) PO daily No Start Date 01/19/2017 Inactive simvastatin 20 mg tablet RxNorm: 491388 1 Tablet(s) PO QHS No Start Date 10/23/2016 Inactive Medication Administered Medication Codes Instructions Start Date Status Kenalog 40 mg/mL suspension for injection RxNorm: 3210689 1Milliliter 06/10/2017 No longer Active Kenalog 40 mg/mL suspension for injection RxNorm: 9860729 1Milliliter 11/11/2016 No longer Active Immunizations Vaccine Codes Date Status Hepatitis A CVX: 83 03/18/2018 completed Hepatitis B Unknown 03/18/2018 completed Assessments Condition Codes Effective Dates Chronic atrial fibrillation ICD-10: I48.2 ICD-9: 427.31 06/04/2018 Alcoholic cirrhosis of liver with ascites ICD-10: K70.31 ICD-9: 571.2 06/04/2018 Orthostatic hypotension ICD-10: I95.1 ICD-9: 458.0 06/04/2018 Other pruritus ICD-10: L29.8 ICD-9: 698.8 03/19/2018 Essential (primary) hypertension ICD-10: I10 ICD-9: 401.1 03/19/2018 Hypo-osmolality and hyponatremia ICD-10: E87.1 ICD-9: 276.1 02/16/2018 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 coma ICD-10: K70.40 ICD-9: 572.8 02/16/2018 Other specified abnormal findings of blood chemistry ICD-10 : R79.89 ICD-9: 790.99 02/16/2018 Localized edema ICD-10: R60.0 ICD-9: 782.3 02/11/2018 Abnormal levels of other serum enzymes ICD-10: R74.8 ICD-9: 790.5 02/11/2018 Generalized abdominal pain ICD-10: R10.84 ICD-9: 789.07 02/11/2018 Mastodynia ICD-10: N64.4 ICD-9: 611.71 12/11/2017 Other specified abnormal findings of blood chemistry ICD-10 : R79.89 ICD-9: 790.6 06/19/2017 Adverse effect of diagnostic agents, initial encounter ICD- 10: T50.8X5A ICD-9: 995.27 06/10/2017 Asymptomatic microscopic hematuria ICD-10: R31.21 ICD-9: 599.72 01/23/2017 Other allergic rhinitis ICD-10: J30.89 ICD-9: 477.8 11/11/2016 Vitamin D deficiency, unspecified ICD-10: E55.9 ICD-9: 268.9 11/11/2016 Impaired fasting glucose ICD-10: R73.01 ICD-9: 790.21 11/11/2016 Anemia, unspecified ICD-10: D64.9 ICD-9: 285.9 11/11/2016 Reason For Visit Reason For Visit Effective Dates Notes weight gain/obesity 06/04/2018 pruritus 03/19/2018 weight gain/obesity 03/04/2018 weight gain/obesity 02/16/2018 weight gain/obesity 02/11/2018 breast complaint 11/24/2017 cough 06/10/2017 hypertension 01/23/2017 hematuria 11/28/2016 cough 11/11/2016 arrhythmia 10/22/2016 Results Observation Observation Code Item Item Code Result Date Ldh Ord92 LDH 170 U/L 02/18/2018 Cbc With Differential Ord2 WBC 12.41 K/ul 02/18/2018 Cbc With Differential Ord2 RBC 3.29 M/ul 02/18/2018 Cbc With Differential Ord2 HGB 9.0 g/dl 02/18/2018 Cbc With Differential Ord2 HCT 27.3 % 02/18/2018 Cbc With Differential Ord2 Neut% 73.2 % 02/18/2018 Cbc With Differential Ord2 MCV 83.0 fl 02/18/2018 Cbc With Differential Ord2 Lymph% 15.3 % 02/18/2018 Cbc With Differential Ord2 MCH 27.4 pg 02/18/2018 Cbc With Differential Ord2 Iron% 10.2 % 02/18/2018 Cbc With Differential Ord2 MCHC 33.0 pg 02/18/2018 Cbc With Differential Ord2 Eos% 0.9 % 02/18/2018 Cbc With Differential Ord2 PLT 503 K/ul 02/18/2018 Cbc With Differential Ord2 Baso% 0.4 % 02/18/2018 Cbc With Differential Ord2 RDW 16.1 % 02/18/2018 Cbc With Differential Ord2 Neut ABS# 9.09 K/ul 02/18/2018 Cbc With Differential Ord2 Lymph ABS# 1.90 K/ul 02/18/2018 Cbc With Differential Ord2 Iron ABS# 1.3 K/ul 02/18/2018 Cbc With Differential Ord2 Eos ABS# 0.1 K/ul 02/18/2018 Cbc With Differential Ord2 Baso ABS# 0.1 K/ul 02/18/2018 Amylase Ord34 AMYLASE 38 U/L 02/18/2018 Comp Metabolic Pwr553 NA 128 mEq/L 02/18/2018 Comp Metabolic Cgt770 K 5.0 mEq/L 02/18/2018 Comp Metabolic Dvx489 CL 94 mEq/L 02/18/2018 Comp Metabolic Hro808 CO2 22.0 mEq/L 02/18/2018 Comp Metabolic Dru594 ANION GAP 17 02/18/2018 Comp Metabolic Aal591 GLUCOSE 81 mg/dL 02/18/2018 Comp Metabolic Arf158 Creat 1.5 mg/dL 02/18/2018 Comp Metabolic Sjh371 eGFR 48 ml/min/1.73m2 02/18/2018 Comp Metabolic Kur976 BUN 18 mg/dL 02/18/2018 Comp Metabolic Lzl496 B/C Ratio 11.8 Ratio 02/18/2018 Comp Metabolic Nxm741 CALCIUM 8.6 mg/dL 02/18/2018 Comp Metabolic Llk182 ALK PHOS 261 U/L 02/18/2018 Comp Metabolic Uxw774 AST(SGOT) 64 U/L 02/18/2018 Comp Metabolic Skq993 ALT(SGPT) 21 U/L 02/18/2018 Comp Metabolic Oyz575 BILI T 0.7 mg/dL 02/18/2018 Comp Metabolic Fau374 ALBUMIN 2.9 g/dL 02/18/2018 Comp Metabolic Aqb652 TPRO 5.8 g/dL 02/18/2018 Comp Metabolic Ojz762 GLOB 3.0 g/dL 02/18/2018 Comp Metabolic Nhq803 A/G Ratio 1.0 Ratio 02/18/2018 Comp Metabolic Nqm520 Osmo 258 mOsmo 02/18/2018 Lipase Hju118 LIPASE 57 U/L 02/18/2018 Lipid Ord30 CHOL 222 mg/dL 04/08/2017 Lipid Ord30 HDL 77.0 mg/dl 04/08/2017 Lipid Ord30 TRIG 79 mg/dL 04/08/2017 Lipid Ord30 LDL 129 mg/dL 04/08/2017 Lipid Ord30 C/HDL 2.9 Ratio 04/08/2017 Hepatic Dhs107 ALBUMIN 4.0 g/dL 04/08/2017 Hepatic Msx752 TPRO 6.6 g/dL 04/08/2017 Hepatic Gpw503 GLOB 2.6 g/dL 04/08/2017 Hepatic Dqk594 A/G Ratio 1.5 Ratio 04/08/2017 Hepatic Umz178 ALK PHOS 121 U/L 04/08/2017 Hepatic Lql225 ALT(SGPT) 57 U/L 04/08/2017 Hepatic Txd702 AST(SGOT) 79 U/L 04/08/2017 Hepatic Jld383 BILI T 1.1 mg/dL 04/08/2017 Hepatic Isw196 BILI D 0.3 mg/dL 04/08/2017 Hepatic Nrq250 BILI I 0.8 mg/dL 04/08/2017 Comp Metabolic Oez182 NA 136 mEq/L 02/12/2017 Comp Metabolic Zhj674 K 4.3 mEq/L 02/12/2017 Comp Metabolic Dzp900 CL 92 mEq/L 02/12/2017 Comp Metabolic Nok575 CO2 28.0 mEq/L 02/12/2017 Comp Metabolic Cvr810 ANION GAP 20 02/12/2017 Comp Metabolic Asj785 GLUCOSE 77 mg/dL 02/12/2017 Comp Metabolic Xsa603 Creat 1.0 mg/dL 02/12/2017 Comp Metabolic Pqj090 eGFR 83 ml/min/1.73m2 02/12/2017 Comp Metabolic Feq347 BUN 11 mg/dL 02/12/2017 Comp Metabolic Rby364 B/C Ratio 11.5 Ratio 02/12/2017 Comp Metabolic Hsw903 CALCIUM 9.4 mg/dL 02/12/2017 Comp Metabolic Zux337 ALK PHOS 109 U/L 02/12/2017 Comp Metabolic Cpo340 AST(SGOT) 81 U/L 02/12/2017 Comp Metabolic Ivl951 ALT(SGPT) 43 U/L 02/12/2017 Comp Metabolic Mdx048 BILI T 0.6 mg/dL 02/12/2017 Comp Metabolic Dbi698 ALBUMIN 3.9 g/dL 02/12/2017 Comp Metabolic Jne578 TPRO 6.8 g/dL 02/12/2017 Comp Metabolic Ohe880 GLOB 2.9 g/dL 02/12/2017 Comp Metabolic Gdk566 A/G Ratio 1.4 Ratio 02/12/2017 Comp Metabolic Vtw049 Osmo 270 mOsmo 02/12/2017 Urine Culture Ucult Preliminary NO Growth Day 1 11/30/2016 Urine Culture Ucult Complete NO Growth Day 2 11/30/2016 %Hba1C Whi593 % HbA1c 26512-3 5.5 % 11/11/2016 %Hba1C Wwc185 Gluc Ave 111 mg/dL 11/11/2016 Vitamin D 25 Oh Ldl6288 VITAMIN D, 25 HYDROXY 26.73 ng/mL Comp Metabolic Vib349 NA 132 mEq/L 11/11/2016 Comp Metabolic Vby667 K 4.1 mEq/L 11/11/2016 Comp Metabolic Gax383 CL 94 mEq/L 11/11/2016 Comp Metabolic Qwh996 CO2 24.0 mEq/L 11/11/2016 Comp Metabolic Pie757 ANION GAP 18 11/11/2016 Comp Metabolic Wos843 GLUCOSE 103 mg/dL 11/11/2016 Comp Metabolic Hzn043 Creat 1.4 mg/dL 11/11/2016 Comp Metabolic Yqh776 eGFR 54 ml/min/1.73m2 11/11/2016 Comp Metabolic Eld644 BUN 22 mg/dL 11/11/2016 Comp Metabolic Svq107 B/C Ratio 15.7 Ratio 11/11/2016 Comp Metabolic Tqn224 CALCIUM 8.8 mg/dL 11/11/2016 Comp Metabolic Ojj385 ALK PHOS 86 U/L 11/11/2016 Comp Metabolic Jbh642 AST(SGOT) 40 U/L 11/11/2016 Comp Metabolic Jai630 ALT(SGPT) 24 U/L 11/11/2016 Comp Metabolic Rrw482 BILI T 0.4 mg/dL 11/11/2016 Comp Metabolic Yyt318 ALBUMIN 3.9 g/dL 11/11/2016 Comp Metabolic Qya580 TPRO 6.4 g/dL 11/11/2016 Comp Metabolic Dnn972 GLOB 2.5 g/dL 11/11/2016 Comp Metabolic Agi745 A/G Ratio 1.5 Ratio 11/11/2016 Comp Metabolic Ksm662 Osmo 268 mOsmo 11/11/2016 Cbc With Differential Ord2 WBC 7.03 K/ul 11/11/2016 Cbc With Differential Ord2 RBC 3.57 M/ul 11/11/2016 Cbc With Differential Ord2 HGB 11.0 g/dl 11/11/2016 Cbc With Differential Ord2 HCT 32.8 % 11/11/2016 Cbc With Differential Ord2 Neut% 64.2 % 11/11/2016 Cbc With Differential Ord2 MCV 91.9 fl 11/11/2016 Cbc With Differential Ord2 Lymph% 18.8 % 11/11/2016 Cbc With Differential Ord2 MCH 30.8 pg 11/11/2016 Cbc With Differential Ord2 Iron% 13.5 % 11/11/2016 Cbc With Differential Ord2 MCHC 33.5 pg 11/11/2016 Cbc With Differential Ord2 Eos% 3.1 % 11/11/2016 Cbc With Differential Ord2 PLT 327 K/ul 11/11/2016 Cbc With Differential Ord2 Baso% 0.4 % 11/11/2016 Cbc With Differential Ord2 RDW 15.4 % 11/11/2016 Cbc With Differential Ord2 Neut ABS# 4.51 K/ul 11/11/2016 Cbc With Differential Ord2 Lymph ABS# 1.32 K/ul 11/11/2016 Cbc With Differential Ord2 Iron ABS# 1.0 K/ul 11/11/2016 Cbc With Differential Ord2 Eos ABS# 0.2 K/ul 11/11/2016 Cbc With Differential Ord2 Baso ABS# 0.0 K/ul 11/11/2016 Review of Systems System Result Effective Dates Constitutional recent illness 06/04/2018 Constitutional No chills 06/04/2018 Constitutional No diaphoresis 06/04/2018 Constitutional No fever 06/04/2018 Constitutional weight gain 06/04/2018 Eyes No blindness 06/04/2018 Ears/Nose/Throat/Neck No nasal allergies 06/04/2018 Ears/Nose/Throat/Neck No nasal discharge 06/04/2018 Cardiovascular No chest pain/pressure Cardiovascular No dyspnea 06/04/2018 Respiratory No cough 06/04/2018 Respiratory No dyspnea 06/04/2018 Gastrointestinal abdominal pain 2018 Gastrointestinal No constipation 2018 Gastrointestinal No diarrhea 06/04/2018 Gastrointestinal increased abdominal girth 06/04/2018 Gastrointestinal No nausea 06/04/2018 Gastrointestinal No vomiting 06/04/2018 Genitourinary/Nephrology breast complaint 06/04/2018 Neurologic No alteration of consciousness 06/04/2018 Neurologic No mental status change 2018 Psychiatric No anxiety 06/04/2018 Constitutional recent illness 03/19/2018 Constitutional No chills 03/19/2018 Constitutional No diaphoresis 03/19/2018 Constitutional fatigue 03/19/2018 Constitutional No fever 03/19/2018 Constitutional weight loss 03/19/2018 Eyes No blindness 03/19/2018 Ears/Nose/Throat/Neck No nasal allergies 03/19/2018 Ears/Nose/Throat/Neck No nasal discharge 03/19/2018 Cardiovascular No chest pain/pressure Cardiovascular No dyspnea 03/19/2018 Cardiovascular edema 03/19/2018 Cardiovascular fatigue 03/19/2018 Respiratory No cough 03/19/2018 Respiratory No dyspnea 03/19/2018 Gastrointestinal No abdominal pain 2017 Gastrointestinal No constipation 2017 Gastrointestinal No diarrhea 03/19/2018 Gastrointestinal increased abdominal girth 03/19/2018 Gastrointestinal No nausea 03/19/2018 Gastrointestinal No vomiting 03/19/2018 Genitourinary/Nephrology breast complaint 03/19/2018 Neurologic No alteration of consciousness 03/19/2018 Neurologic No mental status change 2017 Psychiatric No anxiety 03/19/2018 Constitutional recent illness 03/04/2018 Constitutional No chills 03/04/2018 Constitutional No diaphoresis 03/04/2018 Constitutional No fever 03/04/2018 Eyes No blindness 03/04/2018 Ears/Nose/Throat/Neck No nasal allergies 03/04/2018 Ears/Nose/Throat/Neck No nasal discharge 03/04/2018 Cardiovascular No chest pain/pressure Cardiovascular No dyspnea 03/04/2018 Respiratory No cough 03/04/2018 Respiratory No dyspnea 03/04/2018 Gastrointestinal abdominal pain 2017 Gastrointestinal No constipation 2017 Gastrointestinal No diarrhea 03/04/2018 Gastrointestinal increased abdominal girth 03/04/2018 Gastrointestinal No nausea 03/04/2018 Gastrointestinal No vomiting 03/04/2018 Genitourinary/Nephrology breast complaint 03/04/2018 Neurologic No alteration of consciousness 03/04/2018 Neurologic No mental status change 2017 Psychiatric No anxiety 03/04/2018 Constitutional weight gain 03/04/2018 Constitutional recent illness 02/16/2018 Constitutional No chills 02/16/2018 Constitutional No diaphoresis 02/16/2018 Constitutional No fever 02/16/2018 Eyes No blindness 02/16/2018 Ears/Nose/Throat/Neck No nasal allergies 02/16/2018 Ears/Nose/Throat/Neck No nasal discharge 02/16/2018 Cardiovascular No chest pain/pressure 03/2018 Cardiovascular No dyspnea 02/16/2018 Respiratory No cough 02/16/2018 Respiratory No dyspnea 02/16/2018 Gastrointestinal No abdominal pain 2017 Gastrointestinal No constipation 2017 Gastrointestinal No diarrhea 02/16/2018 Gastrointestinal increased abdominal girth 02/16/2018 Gastrointestinal No nausea 02/16/2018 Gastrointestinal No vomiting 02/16/2018 Genitourinary/Nephrology breast complaint 02/16/2018 Neurologic No alteration of consciousness 02/16/2018 Neurologic No mental status change 2017 Psychiatric No anxiety 02/16/2018 Constitutional fatigue 02/16/2018 Constitutional weight loss 02/16/2018 Cardiovascular edema 02/16/2018 Cardiovascular fatigue 02/16/2018 Constitutional No recent illness 2017 Constitutional No chills 02/11/2018 Constitutional No diaphoresis 02/11/2018 Constitutional No fever 02/11/2018 Eyes No blindness 02/11/2018 Ears/Nose/Throat/Neck No nasal allergies 02/11/2018 Ears/Nose/Throat/Neck No nasal discharge 02/11/2018 Cardiovascular No chest pain/pressure 10/2017 Cardiovascular No dyspnea 02/11/2018 Respiratory No cough 02/11/2018 Respiratory No dyspnea 02/11/2018 Gastrointestinal abdominal pain 2017 Gastrointestinal No constipation 2017 Gastrointestinal No diarrhea 02/11/2018 Gastrointestinal No nausea 02/11/2018 Gastrointestinal No vomiting 02/11/2018 Genitourinary/Nephrology breast complaint 02/11/2018 Neurologic No alteration of consciousness 02/11/2018 Neurologic No mental status change 2017 Gastrointestinal increased abdominal girth 02/11/2018 Psychiatric No anxiety 02/11/2018 Constitutional No recent illness 2017 Constitutional No chills 11/24/2017 Constitutional No diaphoresis 11/24/2017 Constitutional No fever 11/24/2017 Eyes No blindness 11/24/2017 Ears/Nose/Throat/Neck No nasal allergies 11/24/2017 Ears/Nose/Throat/Neck No nasal discharge 11/24/2017 Cardiovascular No chest pain/pressure Cardiovascular No dyspnea 11/24/2017 Respiratory No cough 11/24/2017 Respiratory No dyspnea 11/24/2017 Gastrointestinal No abdominal pain 2017 Gastrointestinal No constipation 2017 Gastrointestinal No diarrhea 11/24/2017 Gastrointestinal No nausea 11/24/2017 Gastrointestinal No vomiting 11/24/2017 Neurologic No alteration of consciousness 11/24/2017 Neurologic No mental status change 2017 Genitourinary/Nephrology breast complaint 11/24/2017 Constitutional No recent illness 2017 Constitutional No anorexia 06/10/2017 Constitutional No night sweats 2017 Constitutional No chills 06/10/2017 Constitutional No diaphoresis 06/10/2017 Constitutional No fatigue 06/10/2017 Constitutional No fever 06/10/2017 Constitutional No insomnia 06/10/2017 Constitutional No malaise 06/10/2017 Eyes No eye discharge 06/10/2017 Eyes No eye erythema 06/10/2017 Ears/Nose/Throat/Neck No dizziness 2017 Ears/Nose/Throat/Neck No headache 2017 Ears/Nose/Throat/Neck nasal discharge 09/2017 Ears/Nose/Throat/Neck No otalgia 2017 Ears/Nose/Throat/Neck sinus congestion Cardiovascular No chest pain/pressure 09/2017 Cardiovascular No dyspnea 06/10/2017 Cardiovascular No edema 06/10/2017 Respiratory cough 06/10/2017 Gastrointestinal No abdominal pain 2017 Gastrointestinal No constipation 2017 Gastrointestinal No diarrhea 06/10/2017 Genitourinary/Nephrology No dysuria 06/10 Musculoskeletal back pain 06/10/2017 Dermatologic No rash 06/10/2017 Neurologic No alteration of consciousness 06/10/2017 Psychiatric No anxiety 06/10/2017 Psychiatric No depression 06/10/2017 Constitutional No recent illness 2016 Constitutional No chills 01/23/2017 Constitutional No diaphoresis 01/23/2017 Constitutional No fever 01/23/2017 Eyes No eye erythema 01/23/2017 Ears/Nose/Throat/Neck No nasal allergies 01/23/2017 Ears/Nose/Throat/Neck No nasal discharge 01/23/2017 Cardiovascular No chest pain/pressure Cardiovascular No dyspnea 01/23/2017 Respiratory No cough 01/23/2017 Respiratory No dyspnea 01/23/2017 Gastrointestinal No abdominal pain 2016 Gastrointestinal No constipation 2016 Gastrointestinal No diarrhea 01/23/2017 Gastrointestinal No vomiting 01/23/2017 Gastrointestinal No nausea 01/23/2017 Neurologic No alteration of consciousness 01/23/2017 Neurologic No mental status change 2016 Constitutional No recent illness 2016 Constitutional No anorexia 11/28/2016 Constitutional No night sweats 2016 Constitutional No chills 11/28/2016 Constitutional No diaphoresis 11/28/2016 Constitutional No fatigue 11/28/2016 Constitutional No fever 11/28/2016 Constitutional No insomnia 11/28/2016 Constitutional No malaise 11/28/2016 Constitutional No weight loss 11/28/2016 Constitutional No weight gain 11/28/2016 Eyes No eye discharge 11/28/2016 Eyes No eye erythema 11/28/2016 Ears/Nose/Throat/Neck No dizziness 2016 Ears/Nose/Throat/Neck No headache 2016 Ears/Nose/Throat/Neck No nasal discharge 11/28/2016 Ears/Nose/Throat/Neck No otalgia 2016 Cardiovascular No chest pain/pressure Cardiovascular No dyspnea 11/28/2016 Cardiovascular No edema 11/28/2016 Respiratory No cough 11/28/2016 Gastrointestinal No abdominal pain 2016 Gastrointestinal No constipation 2016 Gastrointestinal No diarrhea 11/28/2016 Genitourinary/Nephrology No dysuria 11/28 Musculoskeletal back pain 11/28/2016 Dermatologic No rash 11/28/2016 Neurologic No alteration of consciousness 11/28/2016 Respiratory No productive sputum 2016 Genitourinary/Nephrology hematuria 2016 Constitutional No recent illness 2016 Constitutional No anorexia 11/11/2016 Constitutional No night sweats 2016 Constitutional No chills 11/11/2016 Constitutional No diaphoresis 11/11/2016 Constitutional No fatigue 11/11/2016 Constitutional No fever 11/11/2016 Constitutional No insomnia 11/11/2016 Constitutional No malaise 11/11/2016 Constitutional No weight loss 11/11/2016 Constitutional No weight gain 11/11/2016 Eyes No eye discharge 11/11/2016 Eyes No eye erythema 11/11/2016 Ears/Nose/Throat/Neck No dizziness 2016 Ears/Nose/Throat/Neck No headache 2016 Ears/Nose/Throat/Neck nasal discharge 10/2016 Ears/Nose/Throat/Neck No otalgia 2016 Ears/Nose/Throat/Neck sinus congestion Cardiovascular No chest pain/pressure 10/2016 Cardiovascular No dyspnea 11/11/2016 Cardiovascular No edema 11/11/2016 Respiratory cough 11/11/2016 Gastrointestinal No abdominal pain 2016 Gastrointestinal No constipation 2016 Gastrointestinal No diarrhea 11/11/2016 Genitourinary/Nephrology No dysuria 11/11 Musculoskeletal back pain 11/11/2016 Dermatologic No rash 11/11/2016 Neurologic No alteration of consciousness 11/11/2016 Constitutional fatigue 10/22/2016 Ears/Nose/Throat/Neck tinnitus 2016 Genitourinary/Nephrology nocturia 2016 Hematologic/Lymphatic abnormal bleeding and bruising 10/22/2016 Eyes No eye erythema 10/22/2016 Constitutional No fever 10/22/2016 Constitutional No chills 10/22/2016 Constitutional No diaphoresis 10/22/2016 Constitutional No recent illness 2016 Ears/Nose/Throat/Neck nasal allergies Ears/Nose/Throat/Neck No nasal discharge 10/22/2016 Ears/Nose/Throat/Neck postnasal drip Ears/Nose/Throat/Neck No sinus congestion 10/22/2016 Ears/Nose/Throat/Neck sore throat 2016 Cardiovascular arrhythmia 10/22/2016 Cardiovascular No chest pain/pressure Cardiovascular No dyspnea 10/22/2016 Respiratory No cough 10/22/2016 Respiratory No dyspnea 10/22/2016 Gastrointestinal No abdominal pain 2016 Gastrointestinal No constipation 2016 Gastrointestinal No diarrhea 10/22/2016 Gastrointestinal No vomiting 10/22/2016 Gastrointestinal No nausea 10/22/2016 Musculoskeletal No joint complaint 2016 Dermatologic No rash 10/22/2016 Neurologic No alteration of consciousness 10/22/2016 Neurologic No mental status change 2016 Physical Exam Exam Name System Name Item Name Status Result Effective Dates Notes Full Exam - General 1994 Constitutional general appearance Overall: well developed 06/04/2018 None Full Exam - General 1994 Constitutional general appearance Overall: in no acute distress 06/04/2018 None Full Exam - General 1994 Constitutional general appearance Overall: well nourished 06/04/2018 None Full Exam - General 1994 Eyes conjunctiva /eyelids Overall: conjunctiva clear 06/04/2018 None Full Exam - General 1994 Eyes conjunctiva /eyelids Overall: eyelids normal 06/04/2018 None Full Exam - General 1995 Ears/Nose/Throat oral cavity/pharynx/larynx Overall: oral mucosa clear 06/04/2018 None Full Exam - General 1995 Ears/Nose/Throat oral cavity/pharynx/larynx Posterior Pharynx: clear post nasal drainage 06/04/2018 None Full Exam - General 1994 Respiratory auscultation Overall: breath sounds clear bilaterally 06/04/2018 None Full Exam - General 1994 Respiratory respiratory effort/rhythm Overall: no retractions 06/04/2018 None Full Exam - General 1994 Respiratory respiratory effort/rhythm Overall: normal rate 06/04/2018 None Full Exam - General 1994 Cardiovascular extremities Overall: no clubbing 06/04/2018 None Full Exam - General 1994 Cardiovascular extremities Edema present: pitting 06/04/2018 None Full Exam - General 1994 Cardiovascular extremities Edema present: severity 3+ to knees 06/04/2018 None Full Exam - General 1994 Cardiovascular auscultation of heart Rhythm: irregularly irregular rhythm 06/04/2018 None Full Exam - General 1994 Abdomen abdominal exam Overall: normal bowel sounds 06/04/2018 None Full Exam - General 1994 Abdomen abdominal exam Contour: protuberant 06/04/2018 fluid wave Full Exam - General 1994 Musculoskeletal head and neck Overall: head atraumatic 06/04/2018 None Full Exam - General 1994 Psychiatric orientation/consciousness Overall: oriented to person, place and time 06/04/2018 None Full Exam - General 1994 Psychiatric mood and affect Overall: normal mood and affect 06/04/2018 None Full Exam - General 1994 Psychiatric appearance Overall: well-groomed, good eye contact 06/04/2018 None Full Exam - General 1994 Abdomen abdominal exam Percussion: fluid wave 06/04/2018 None Full Exam - General 1994 Constitutional general appearance Overall: well developed 03/19/2018 None Full Exam - General 1994 Constitutional general appearance Overall: in no acute distress 03/19/2018 None Full Exam - General 1994 Constitutional general appearance Overall: well nourished 03/19/2018 None Full Exam - General 1994 Eyes conjunctiva /eyelids Overall: conjunctiva clear 03/19/2018 None Full Exam - General 1994 Eyes conjunctiva /eyelids Overall: eyelids normal 03/19/2018 None Full Exam - General 1994 Ears/Nose/Throat otoscopic exam Overall: external auditory canals clear 03/19/2018 None Full Exam - General 1994 Ears/Nose/Throat otoscopic exam Overall: tympanic membranes clear 03/19/2018 None Full Exam - General 1994 Ears/Nose/Throat lips/teeth/gingiva Overall: benign lips 03/19/2018 None Full Exam - General 1994 Ears/Nose/Throat oral cavity/pharynx/larynx Overall: oral mucosa clear 03/19/2018 None Full Exam - General 1994 Respiratory auscultation Overall: breath sounds clear bilaterally 03/19/2018 None Full Exam - General 1994 Respiratory respiratory effort/rhythm Overall: no retractions 03/19/2018 None Full Exam - General 1994 Respiratory respiratory effort/rhythm Overall: normal rate 03/19/2018 None Full Exam - General 1994 Cardiovascular extremities Overall: no clubbing 03/19/2018 None Full Exam - General 1994 Cardiovascular extremities Edema present: pitting 03/19/2018 - 1+ at ankles Full Exam - General 1994 Cardiovascular auscultation of heart Rhythm: irregularly irregular rhythm 03/19/2018 None Full Exam - General 1994 Abdomen abdominal exam Overall: normal bowel sounds 03/19/2018 None Full Exam - General 1994 Abdomen abdominal exam Contour: protuberant 03/19/2018 pt still has a fluid wave Full Exam - General 1994 Musculoskeletal head and neck Overall: head atraumatic 03/19/2018 None Full Exam - General 1994 Integument inspection of skin Overall: no rash, lesions 03/19/2018 no jaundice Full Exam - General 1994 Psychiatric orientation/consciousness Overall: oriented to person, place and time 03/19/2018 None Full Exam - General 1994 Psychiatric mood and affect Overall: normal mood and affect 03/19/2018 None Full Exam - General 1994 Psychiatric appearance Overall: well-groomed, good eye contact 03/19/2018 None Full Exam - General 1994 Constitutional general appearance Overall: well developed 03/04/2018 None Full Exam - General 1994 Constitutional general appearance Overall: in no acute distress 03/04/2018 None Full Exam - General 1994 Constitutional general appearance Overall: well nourished 03/04/2018 None Full Exam - General 1994 Eyes conjunctiva /eyelids Overall: conjunctiva clear 03/04/2018 None Full Exam - General 1994 Eyes conjunctiva /eyelids Overall: eyelids normal 03/04/2018 None Full Exam - General 1994 Ears/Nose/Throat otoscopic exam Overall: external auditory canals clear 03/04/2018 None Full Exam - General 1994 Ears/Nose/Throat otoscopic exam Overall: tympanic membranes clear 03/04/2018 None Full Exam - General 1994 Ears/Nose/Throat lips/teeth/gingiva Overall: benign lips 03/04/2018 None Full Exam - General 1994 Ears/Nose/Throat oral cavity/pharynx/larynx Overall: oral mucosa clear 03/04/2018 None Full Exam - General 1994 Ears/Nose/Throat oral cavity/pharynx/larynx Posterior Pharynx: clear post nasal drainage 03/04/2018 None Full Exam - General 1994 Respiratory auscultation Overall: breath sounds clear bilaterally 03/04/2018 None Full Exam - General 1994 Respiratory respiratory effort/rhythm Overall: no retractions 03/04/2018 None Full Exam - General 1994 Respiratory respiratory effort/rhythm Overall: normal rate 03/04/2018 None Full Exam - General 1994 Cardiovascular extremities Overall: no clubbing 03/04/2018 None Full Exam - General 1994 Cardiovascular extremities Edema present: pitting 03/04/2018 None Full Exam - General 1994 Cardiovascular extremities Edema present: severity 3+ to knees 03/04/2018 None Full Exam - General 1994 Cardiovascular auscultation of heart Rhythm: irregularly irregular rhythm 03/04/2018 None Full Exam - General 1994 Abdomen abdominal exam Overall: normal bowel sounds 03/04/2018 None Full Exam - General 1994 Abdomen abdominal exam Contour: protuberant 03/04/2018 fluid wave Full Exam - General 1994 Musculoskeletal head and neck Overall: head atraumatic 03/04/2018 None Full Exam - General 1994 Integument inspection of skin Overall: no rash, lesions 03/04/2018 no jaundice Full Exam - General 1994 Psychiatric orientation/consciousness Overall: oriented to person, place and time 03/04/2018 None Full Exam - General 1994 Psychiatric mood and affect Overall: normal mood and affect 03/04/2018 None Full Exam - General 1994 Psychiatric appearance Overall: well-groomed, good eye contact 03/04/2018 None Full Exam - General 1994 Constitutional general appearance Overall: well developed 02/16/2018 None Full Exam - General 1994 Constitutional general appearance Overall: in no acute distress 02/16/2018 None Full Exam - General 1994 Constitutional general appearance Overall: well nourished 02/16/2018 None Full Exam - General 1994 Eyes conjunctiva /eyelids Overall: conjunctiva clear 02/16/2018 None Full Exam - General 1994 Eyes conjunctiva /eyelids Overall: eyelids normal 02/16/2018 None Full Exam - General 1994 Ears/Nose/Throat otoscopic exam Overall: external auditory canals clear 02/16/2018 None Full Exam - General 1994 Ears/Nose/Throat otoscopic exam Overall: tympanic membranes clear 02/16/2018 None Full Exam - General 1994 Ears/Nose/Throat lips/teeth/gingiva Overall: benign lips 02/16/2018 None Full Exam - General 1994 Ears/Nose/Throat oral cavity/pharynx/larynx Overall: oral mucosa clear 02/16/2018 None Full Exam - General 1994 Respiratory auscultation Overall: breath sounds clear bilaterally 02/16/2018 None Full Exam - General 1994 Respiratory respiratory effort/rhythm Overall: no retractions 02/16/2018 None Full Exam - General 1994 Respiratory respiratory effort/rhythm Overall: normal rate 02/16/2018 None Full Exam - General 1994 Cardiovascular extremities Overall: no clubbing 02/16/2018 None Full Exam - General 1994 Cardiovascular extremities Edema present: pitting 02/16/2018 --Improved - 1+ at ankles Full Exam - General 1994 Cardiovascular auscultation of heart Rhythm: irregularly irregular rhythm 02/16/2018 None Full Exam - General 1994 Abdomen abdominal exam Overall: normal bowel sounds 02/16/2018 None Full Exam - General 1994 Abdomen abdominal exam Contour: protuberant 02/16/2018 pt still has a fluid wave Full Exam - General 1994 Musculoskeletal head and neck Overall: head atraumatic 02/16/2018 None Full Exam - General 1994 Integument inspection of skin Overall: no rash, lesions 02/16/2018 no jaundice Full Exam - General 1994 Psychiatric orientation/consciousness Overall: oriented to person, place and time 02/16/2018 None Full Exam - General 1994 Psychiatric mood and affect Overall: normal mood and affect 02/16/2018 None Full Exam - General 1994 Psychiatric appearance Overall: well-groomed, good eye contact 02/16/2018 None Full Exam - General 1994 Constitutional general appearance Overall: well developed 02/11/2018 None Full Exam - General 1994 Constitutional general appearance Overall: in no acute distress 02/11/2018 None Full Exam - General 1994 Constitutional general appearance Overall: well nourished 02/11/2018 None Full Exam - General 1994 Eyes conjunctiva /eyelids Overall: conjunctiva clear 02/11/2018 None Full Exam - General 1994 Eyes conjunctiva /eyelids Overall: eyelids normal 02/11/2018 None Full Exam - General 1994 Ears/Nose/Throat otoscopic exam Overall: external auditory canals clear 02/11/2018 None Full Exam - General 1994 Ears/Nose/Throat otoscopic exam Overall: tympanic membranes clear 02/11/2018 None Full Exam - General 1994 Ears/Nose/Throat lips/teeth/gingiva Overall: benign lips 02/11/2018 None Full Exam - General 1994 Ears/Nose/Throat oral cavity/pharynx/larynx Overall: oral mucosa clear 02/11/2018 None Full Exam - General 1994 Ears/Nose/Throat oral cavity/pharynx/larynx Posterior Pharynx: clear post nasal drainage 02/11/2018 None Full Exam - General 1994 Respiratory auscultation Overall: breath sounds clear bilaterally 02/11/2018 None Full Exam - General 1994 Respiratory respiratory effort/rhythm Overall: no retractions 02/11/2018 None Full Exam - General 1994 Respiratory respiratory effort/rhythm Overall: normal rate 02/11/2018 None Full Exam - General 1994 Cardiovascular extremities Overall: no clubbing 02/11/2018 None Full Exam - General 1994 Cardiovascular extremities Edema present: pitting 02/11/2018 None Full Exam - General 1994 Cardiovascular auscultation of heart Rhythm: irregularly irregular rhythm 02/11/2018 None Full Exam - General 1994 Musculoskeletal head and neck Overall: head atraumatic 02/11/2018 None Full Exam - General 1994 Psychiatric orientation/consciousness Overall: oriented to person, place and time 02/11/2018 None Full Exam - General 1994 Psychiatric mood and affect Overall: normal mood and affect 02/11/2018 None Full Exam - General 1994 Psychiatric appearance Overall: well-groomed, good eye contact 02/11/2018 None Full Exam - General 1994 Abdomen abdominal exam Contour: protuberant 02/11/2018 fluid wave Full Exam - General 1994 Abdomen abdominal exam Overall: normal bowel sounds 02/11/2018 None Full Exam - General 1994 Integument inspection of skin Overall: no rash, lesions 02/11/2018 no jaundice Full Exam - General 1994 Cardiovascular extremities Edema present: severity 3+ to knees 02/11/2018 None Full Exam - General 1994 Constitutional general appearance Overall: well developed 11/24/2017 None Full Exam - General 1994 Constitutional general appearance Overall: in no acute distress 11/24/2017 None Full Exam - General 1994 Constitutional general appearance Overall: well nourished 11/24/2017 None Full Exam - General 1994 Eyes conjunctiva /eyelids Overall: conjunctiva clear 11/24/2017 None Full Exam - General 1994 Eyes conjunctiva /eyelids Overall: eyelids normal 11/24/2017 None Full Exam - General 1994 Ears/Nose/Throat otoscopic exam Overall: external auditory canals clear 11/24/2017 None Full Exam - General 1994 Ears/Nose/Throat otoscopic exam Overall: tympanic membranes clear 11/24/2017 None Full Exam - General 1994 Ears/Nose/Throat lips/teeth/gingiva Overall: benign lips 11/24/2017 None Full Exam - General 1994 Ears/Nose/Throat oral cavity/pharynx/larynx Overall: oral mucosa clear 11/24/2017 None Full Exam - General 1994 Ears/Nose/Throat oral cavity/pharynx/larynx Posterior Pharynx: clear post nasal drainage 11/24/2017 None Full Exam - General 1994 Respiratory auscultation Overall: breath sounds clear bilaterally 11/24/2017 None Full Exam - General 1994 Respiratory respiratory effort/rhythm Overall: no retractions 11/24/2017 None Full Exam - General 1994 Respiratory respiratory effort/rhythm Overall: normal rate 11/24/2017 None Full Exam - General 1994 Cardiovascular extremities Overall: no clubbing 11/24/2017 None Full Exam - General 1994 Cardiovascular auscultation of heart Rhythm: irregularly irregular rhythm 11/24/2017 None Full Exam - General 1994 Abdomen abdominal exam Overall: no tenderness 11/24/2017 None Full Exam - General 1994 Abdomen abdominal exam Overall: normal bowel sounds 11/24/2017 None Full Exam - General 1994 Musculoskeletal head and neck Overall: head atraumatic 11/24/2017 None Full Exam - General 1994 Psychiatric orientation/consciousness Overall: oriented to person, place and time 11/24/2017 None Full Exam - General 1994 Psychiatric mood and affect Overall: normal mood and affect 11/24/2017 None Full Exam - General 1994 Psychiatric appearance Overall: well-groomed, good eye contact 11/24/2017 None Full Exam - General 1994 Chest/Breast breast and axillae palpation Nipple: tender 11/24/2017 None Full Exam - General 1994 Chest/Breast breast and axillae palpation Axillae: no mass 11/24/2017 None Full Exam - General 1994 Chest/Breast breast and axillae palpation Axillae: mass present 11/24/2017 lymph node palpable in right axilla Full Exam - General 1994 Cardiovascular extremities Edema present: pitting 11/24/2017 bilateral ankles Full Exam - General 1994 Constitutional general appearance Overall: well developed 06/10/2017 None Full Exam - General 1994 Constitutional general appearance Overall: in no acute distress 06/10/2017 None Full Exam - General 1994 Constitutional general appearance Overall: well nourished 06/10/2017 None Full Exam - General 1994 Eyes conjunctiva /eyelids Overall: conjunctiva clear 06/10/2017 None Full Exam - General 1994 Eyes conjunctiva /eyelids Overall: eyelids normal 06/10/2017 None Full Exam - General 1994 Ears/Nose/Throat otoscopic exam Overall: external auditory canals clear 06/10/2017 None Full Exam - General 1994 Ears/Nose/Throat otoscopic exam Overall: tympanic membranes clear 06/10/2017 None Full Exam - General 1994 Ears/Nose/Throat lips/teeth/gingiva Overall: benign lips 06/10/2017 None Full Exam - General 1994 Ears/Nose/Throat oral cavity/pharynx/larynx Overall: oral mucosa clear 06/10/2017 None Full Exam - General 1994 Ears/Nose/Throat oral cavity/pharynx/larynx Posterior Pharynx: clear post nasal drainage 06/10/2017 None Full Exam - General 1994 Respiratory auscultation Overall: breath sounds clear bilaterally 06/10/2017 None Full Exam - General 1994 Respiratory respiratory effort/rhythm Overall: no retractions 06/10/2017 None Full Exam - General 1994 Respiratory respiratory effort/rhythm Overall: normal rate 06/10/2017 None Full Exam - General 1994 Cardiovascular extremities Overall: no clubbing 06/10/2017 None Full Exam - General 1994 Cardiovascular auscultation of heart Rhythm: irregularly irregular rhythm 06/10/2017 None Full Exam - General 1994 Abdomen abdominal exam Overall: no tenderness 06/10/2017 None Full Exam - General 1994 Abdomen abdominal exam Overall: normal bowel sounds 06/10/2017 None Full Exam - General 1994 Musculoskeletal gait and station Overall: normal gait 06/10/2017 None Full Exam - General 1994 Musculoskeletal gait and station Overall: normal station 06/10/2017 None Full Exam - General 1994 Musculoskeletal head and neck Overall: head atraumatic 06/10/2017 None Full Exam - General 1994 Neurologic cranial nerves Overall: crainial nerves 2 - 12 grossly intact 06/10/2017 None Full Exam - General 1994 Psychiatric orientation/consciousness Overall: oriented to person, place and time 06/10/2017 None Full Exam - General 1994 Psychiatric mood and affect Overall: normal mood and affect 06/10/2017 None Full Exam - General 1994 Psychiatric appearance Overall: well-groomed, good eye contact 06/10/2017 None Full Exam - General 1994 Constitutional general appearance Overall: well developed 01/23/2017 None Full Exam - General 1994 Constitutional general appearance Overall: in no acute distress 01/23/2017 None Full Exam - General 1994 Constitutional general appearance Overall: well nourished 01/23/2017 None Full Exam - General 1994 Eyes conjunctiva /eyelids Overall: conjunctiva clear 01/23/2017 None Full Exam - General 1994 Eyes conjunctiva /eyelids Overall: eyelids normal 01/23/2017 None Full Exam - General 1994 Ears/Nose/Throat otoscopic exam Overall: external auditory canals clear 01/23/2017 None Full Exam - General 1994 Ears/Nose/Throat otoscopic exam Overall: tympanic membranes clear 01/23/2017 None Full Exam - General 1994 Ears/Nose/Throat lips/teeth/gingiva Overall: benign lips 01/23/2017 None Full Exam - General 1994 Ears/Nose/Throat oral cavity/pharynx/larynx Overall: oral mucosa clear 01/23/2017 None Full Exam - General 1994 Ears/Nose/Throat oral cavity/pharynx/larynx Posterior Pharynx: clear post nasal drainage 01/23/2017 None Full Exam - General 1994 Respiratory auscultation Overall: breath sounds clear bilaterally 01/23/2017 None Full Exam - General 1994 Respiratory respiratory effort/rhythm Overall: no retractions 01/23/2017 None Full Exam - General 1994 Respiratory respiratory effort/rhythm Overall: normal rate 01/23/2017 None Full Exam - General 1994 Cardiovascular extremities Overall: no clubbing 01/23/2017 None Full Exam - General 1994 Cardiovascular auscultation of heart Rhythm: irregularly irregular rhythm 01/23/2017 None Full Exam - General 1994 Abdomen abdominal exam Overall: no tenderness 01/23/2017 None Full Exam - General 1994 Abdomen abdominal exam Overall: normal bowel sounds 01/23/2017 None Full Exam - General 1994 Musculoskeletal gait and station Overall: normal gait 01/23/2017 None Full Exam - General 1994 Musculoskeletal gait and station Overall: normal station 01/23/2017 None Full Exam - General 1994 Musculoskeletal head and neck Overall: head atraumatic 01/23/2017 None Full Exam - General 1994 Neurologic cranial nerves Overall: crainial nerves 2 - 12 grossly intact 01/23/2017 None Full Exam - General 1994 Psychiatric orientation/consciousness Overall: oriented to person, place and time 01/23/2017 None Full Exam - General 1994 Psychiatric mood and affect Overall: normal mood and affect 01/23/2017 None Full Exam - General 1994 Psychiatric appearance Overall: well-groomed, good eye contact 01/23/2017 None Full Exam - General 1994 Constitutional general appearance Overall: well developed 11/28/2016 None Full Exam - General 1994 Constitutional general appearance Overall: in no acute distress 11/28/2016 None Full Exam - General 1994 Constitutional general appearance Overall: well nourished 11/28/2016 None Full Exam - General 1994 Eyes conjunctiva /eyelids Overall: conjunctiva clear 11/28/2016 None Full Exam - General 1994 Eyes conjunctiva /eyelids Overall: eyelids normal 11/28/2016 None Full Exam - General 1994 Ears/Nose/Throat otoscopic exam Overall: external auditory canals clear 11/28/2016 None Full Exam - General 1994 Ears/Nose/Throat otoscopic exam Overall: tympanic membranes clear 11/28/2016 None Full Exam - General 1994 Ears/Nose/Throat lips/teeth/gingiva Overall: benign lips 11/28/2016 None Full Exam - General 1994 Ears/Nose/Throat oral cavity/pharynx/larynx Overall: oral mucosa clear 11/28/2016 None Full Exam - General 1994 Ears/Nose/Throat oral cavity/pharynx/larynx Posterior Pharynx: clear post nasal drainage 11/28/2016 None Full Exam - General 1994 Respiratory auscultation Overall: breath sounds clear bilaterally 11/28/2016 None Full Exam - General 1994 Respiratory respiratory effort/rhythm Overall: no retractions 11/28/2016 None Full Exam - General 1994 Respiratory respiratory effort/rhythm Overall: normal rate 11/28/2016 None Full Exam - General 1994 Cardiovascular extremities Overall: no clubbing 11/28/2016 None Full Exam - General 1994 Cardiovascular auscultation of heart Rhythm: irregularly irregular rhythm 11/28/2016 None Full Exam - General 1994 Abdomen abdominal exam Overall: no tenderness 11/28/2016 None Full Exam - General 1994 Abdomen abdominal exam Overall: normal bowel sounds 11/28/2016 None Full Exam - General 1994 Musculoskeletal gait and station Overall: normal gait 11/28/2016 None Full Exam - General 1994 Musculoskeletal gait and station Overall: normal station 11/28/2016 None Full Exam - General 1994 Musculoskeletal head and neck Overall: head atraumatic 11/28/2016 None Full Exam - General 1994 Neurologic cranial nerves Overall: crainial nerves 2 - 12 grossly intact 11/28/2016 None Full Exam - General 1994 Psychiatric orientation/consciousness Overall: oriented to person, place and time 11/28/2016 None Full Exam - General 1994 Psychiatric mood and affect Overall: normal mood and affect 11/28/2016 None Full Exam - General 1994 Psychiatric appearance Overall: well-groomed, good eye contact 11/28/2016 None Full Exam - General 1994 Constitutional general appearance Overall: well developed 11/11/2016 None Full Exam - General 1994 Constitutional general appearance Overall: in no acute distress 11/11/2016 None Full Exam - General 1994 Constitutional general appearance Overall: well nourished 11/11/2016 None Full Exam - General 1994 Eyes conjunctiva /eyelids Overall: conjunctiva clear 11/11/2016 None Full Exam - General 1994 Eyes conjunctiva /eyelids Overall: eyelids normal 11/11/2016 None Full Exam - General 1994 Ears/Nose/Throat otoscopic exam Overall: external auditory canals clear 11/11/2016 None Full Exam - General 1994 Ears/Nose/Throat otoscopic exam Overall: tympanic membranes clear 11/11/2016 None Full Exam - General 1994 Ears/Nose/Throat lips/teeth/gingiva Overall: benign lips 11/11/2016 None Full Exam - General 1994 Ears/Nose/Throat oral cavity/pharynx/larynx Overall: oral mucosa clear 11/11/2016 None Full Exam - General 1994 Ears/Nose/Throat oral cavity/pharynx/larynx Posterior Pharynx: clear post nasal drainage 11/11/2016 None Full Exam - General 1994 Respiratory auscultation Overall: breath sounds clear bilaterally 11/11/2016 None Full Exam - General 1994 Respiratory respiratory effort/rhythm Overall: no retractions 11/11/2016 None Full Exam - General 1994 Respiratory respiratory effort/rhythm Overall: normal rate 11/11/2016 None Full Exam - General 1994 Cardiovascular extremities Overall: no clubbing 11/11/2016 None Full Exam - General 1994 Cardiovascular auscultation of heart Rhythm: irregularly irregular rhythm 11/11/2016 None Full Exam - General 1994 Abdomen abdominal exam Overall: no tenderness 11/11/2016 None Full Exam - General 1994 Abdomen abdominal exam Overall: normal bowel sounds 11/11/2016 None Full Exam - General 1994 Musculoskeletal gait and station Overall: normal gait 11/11/2016 None Full Exam - General 1994 Musculoskeletal gait and station Overall: normal station 11/11/2016 None Full Exam - General 1994 Musculoskeletal head and neck Overall: head atraumatic 11/11/2016 None Full Exam - General 1994 Neurologic cranial nerves Overall: crainial nerves 2 - 12 grossly intact 11/11/2016 None Full Exam - General 1994 Psychiatric orientation/consciousness Overall: oriented to person, place and time 11/11/2016 None Full Exam - General 1994 Psychiatric mood and affect Overall: normal mood and affect 11/11/2016 None Full Exam - General 1994 Psychiatric appearance Overall: well-groomed, good eye contact 11/11/2016 None Full Exam - General 1994 Constitutional general appearance Overall: well developed 10/22/2016 None Full Exam - General 1994 Constitutional general appearance Overall: in no acute distress 10/22/2016 None Full Exam - General 1994 Constitutional general appearance Overall: well nourished 10/22/2016 None Full Exam - General 1994 Eyes conjunctiva /eyelids Overall: conjunctiva clear 10/22/2016 None Full Exam - General 1994 Eyes conjunctiva /eyelids Overall: eyelids normal 10/22/2016 None Full Exam - General 1994 Ears/Nose/Throat lips/teeth/gingiva Overall: benign lips 10/22/2016 None Full Exam - General 1994 Ears/Nose/Throat otoscopic exam Overall: external auditory canals clear 10/22/2016 None Full Exam - General 1994 Ears/Nose/Throat otoscopic exam Overall: tympanic membranes clear 10/22/2016 None Full Exam - General 1994 Ears/Nose/Throat oral cavity/pharynx/larynx Overall: oral mucosa clear 10/22/2016 None Full Exam - General 1994 Respiratory auscultation Overall: breath sounds clear bilaterally 10/22/2016 None Full Exam - General 1994 Respiratory respiratory effort/rhythm Overall: no retractions 10/22/2016 None Full Exam - General 1994 Respiratory respiratory effort/rhythm Overall: normal rate 10/22/2016 None Full Exam - General 1994 Cardiovascular auscultation of heart Overall: normal heart sounds 10/22/2016 None Full Exam - General 1994 Cardiovascular auscultation of heart Rhythm: irregularly irregular rhythm 10/22/2016 None Full Exam - General 1994 Cardiovascular extremities Overall: no clubbing 10/22/2016 None Full Exam - General 1994 Abdomen abdominal exam Overall: no tenderness 10/22/2016 None Full Exam - General 1994 Abdomen abdominal exam Overall: normal bowel sounds 10/22/2016 None Full Exam - General 1994 Ears/Nose/Throat oral cavity/pharynx/larynx Posterior Pharynx: clear post nasal drainage 10/22/2016 None Full Exam - General 1994 Ears/Nose/Throat oral cavity/pharynx/larynx Oropharynx: erythema 10/22/2016 None Full Exam - General 1994 Musculoskeletal gait and station Overall: normal gait 10/22/2016 None Full Exam - General 1994 Musculoskeletal gait and station Overall: normal station 10/22/2016 None Full Exam - General 1994 Musculoskeletal head and neck Overall: head atraumatic 10/22/2016 None Full Exam - General 1994 Neurologic cranial nerves Overall: crainial nerves 2 - 12 grossly intact 10/22/2016 None Full Exam - General 1994 Psychiatric orientation/consciousness Overall: oriented to person, place and time 10/22/2016 None Full Exam - General 1994 Psychiatric mood and affect Overall: normal mood and affect 10/22/2016 None Full Exam - General 1994 Psychiatric appearance Overall: well-groomed, good eye contact 10/22/2016 None Procedures Procedure Codes Date THER/PROPH/DIAG INJ SC/IM CPT-4: 37806 06/10/2017 TRIAMCINOLONE ACET INJ NOS CPT-4: J3301 06/10/2017 TRIAMCINOLONE ACET INJ NOS CPT-4: J3301 11/11/2016 Vital Signs Date Vital 06/04/2018 Blood Pressure 1: 90/68 Code : 8480-6 BMI: 26.4 Code : 96237-4 Height: 5'11 " Weight: 189 lbs 03/19/2018 Blood Pressure 1: 90/58 Code : 8480-6 BMI: 28.4 Code : 12704-3 Heart Rate 1 : 76 bpm Height: 5'11" SpO2: 96% Weight: 203 lbs 5 oz 03/04/2018 Blood Pressure 1: 108/62 Code : 8480-6 BMI: 31.2 Code : 73652-5 Heart Rate 1 : 106 bpm Height: 5'11 " SpO2: 99% Weight: 224 lbs 02/16/2018 Blood Pressure 1: 120/64 Code : 8480-6 BMI: 30.8 Code : 88433-1 Heart Rate 1 : 106 bpm Height: 5'11 " Respiratory Rate: 22 bpm SpO2: 97% Weight: 221 lbs 02/11/2018 Blood Pressure 1: 120/66 Code : 8480-6 BMI: 34.0 Code : 68748-8 Heart Rate 1 : 99 bpm Height: 5'11" Respiratory Rate: 16 bpm SpO2: 98% Weight: 244 lbs 11/24/2017 Blood Pressure 1: 112/64 Code : 8480-6 BMI: 31.8 Code : 86251-3 Heart Rate 1 : 97 bpm Height: 5'11" SpO2: 96% Weight: 228 lbs 06/10/2017 Blood Pressure 1: 92/58 Code : 8480-6 BMI: 30.8 Code : 77729-8 Heart Rate 1 : 53 bpm Height: 5'11" SpO2: 98% Temperature: 36.4 (C) / 97.5 (F) Weight: 221 lbs 01/23/2017 Blood Pressure 1: 148/82 Code : 8480-6 BMI: 29.8 Code : 83834-8 Heart Rate 1 : 97 bpm Height: 5'11" SpO2: 97% Weight: 214 lbs 11/28/2016 Blood Pressure 1: 140/62 Code : 8480-6 BMI: 29.7 Code : 82433-2 Heart Rate 1 : 102 bpm Height: 5'11 " SpO2: 97% Weight: 213 lbs 11/11/2016 Blood Pressure 1: 114/60 Code : 8480-6 Heart Rate 1: 62 bpm SpO2: 96% Weight: 213 lbs 8 oz 10/22/2016 Blood Pressure 1: 136/68 Code : 8480-6 BMI: 28.9 Code : 29493-7 Heart Rate 1 : 56 bpm Height: 5'11" SpO2: 98% Weight: 207 lbs Functional Status No Functional Status data History of Present Illness Symptom Name Status Result Effective Date Notes Location globally None Quality improving None Pertinent Findings dyspnea 06/04/2018 None Onset of Symptom 3 weeks ago 06/04/2018 None Location-Major on the chest 03/19/2018 None Quality intermittent 03/19/2018 None Quality worsening None Onset and Resolution ongoing 03/19/2018 None Onset of Symptom 2 months ago 03/19/2018 None Pertinent Findings itching 03/19/2018 None Pertinent Findings Denies pain 03/19/2018 None Quality intermittent 03/19/2018 None Onset and Resolution gradual in onset 03/19/2018 from fluid removed in abdomen Pertinent Findings Denies dyspnea 03/19/2018 None weight gain/obesity Location globally 03/04/2018 None weight gain/obesity Quality improving 03/04/2018 after the paracentesis - he lost 23 pounds weight gain/obesity Pertinent Findings dyspnea 03/04/2018 None weight gain/obesity Location globally 02/16/2018 None breast complaint Location in the left nipple 02/16/2018 None breast complaint Location in the right nipple 02/16/2018 None breast complaint Quality constant 02/16/2018 None breast complaint Onset and Resolution gradual in onset 02/16/2018 None breast complaint Frequency of Episodes daily 02/16/2018 None weight gain/obesity Quality improving 02/16/2018 after the paracentesis - he has lost 23 pounds - he is feeling better, swelling has improved as well breast complaint Location in the left nipple 02/11/2018 None breast complaint Location in the right nipple 02/11/2018 None breast complaint Quality constant 02/11/2018 None breast complaint Onset and Resolution gradual in onset 02/11/2018 None breast complaint Frequency of Episodes daily 02/11/2018 None weight gain/obesity Location globally 02/11/2018 None breast complaint Location in the left nipple 11/24/2017 None breast complaint Location in the right nipple 11/24/2017 None breast complaint Quality constant 11/24/2017 None breast complaint Quality mass 11/24/2017 None breast complaint Onset and Resolution gradual in onset 11/24/2017 None breast complaint Onset of Symptom 2 months ago 11/24/2017 None breast complaint Frequency of Episodes daily 11/24/2017 None cough Quality acute None cough Quality intermittent 06/10/2017 None cough Onset and Resolution ongoing 06/10/2017 None cough Onset of Symptom 3 weeks ago 06/10/2017 None cough Frequency of Episodes daily 06/10/2017 None cough Pertinent Findings Denies chills 06/10/2017 None cough Pertinent Findings Denies fever 06/10/2017 None cough Pertinent Findings Denies nasal congestion 06/10/2017 None cough Pertinent Findings Denies post nasal drip 06/10/2017 None cough Pertinent Findings sputum production 06/10/2017 "very little" hypertension Quality chronic 01/23/2017 None hypertension Onset and Resolution ongoing 01/23/2017 None hypertension Pertinent Findings Denies dyspnea 01/23/2017 None hematuria Quality acute 11/28/2016 None hematuria Onset and Resolution ongoing 11/28/2016 None hematuria Onset of Symptom 1 weeks ago 11/28/2016 None hematuria Severity moderate 11/28/2016 None hematuria Frequency of Episodes decreasing 11/28/2016 None hematuria Significant Medical Conditions hypercoagulable state 11/28/2016 on pradaxa hematuria Triggers no known associated factors 11/28/2016 None hematuria Pertinent Findings Denies fever 11/28/2016 None cough Location in the throat 11/11/2016 None cough Quality acute None cough Quality constant 11/11/2016 None cough Quality hacking 11/11/2016 None cough Quality dry 10/2016 None cough Onset and Resolution ongoing 11/11/2016 None cough Onset of Symptom 1 months ago 11/11/2016 None cough Pertinent Findings Denies fever 11/11/2016 None cough Pertinent Findings Denies heartburn 11/11/2016 None cough Pertinent Findings Denies nasal congestion 11/11/2016 None cough Limitation on Activities does not limit activities 11/11/2016 None cough Frequency of Episodes unchanged 11/11/2016 None cough Triggers no known associated factors 11/11/2016 None arrhythmia Quality chronic 10/22/2016 None arrhythmia Quality stable 10/22/2016 None arrhythmia Onset and Resolution ongoing 10/22/2016 None arrhythmia Onset of Symptom during adulthood 10/22/2016 None arrhythmia Pertinent Findings Denies fever 10/22/2016 None rhinitis Quality intermittent 10/22/2016 None rhinitis Pertinent Findings Denies dyspnea 10/22/2016 None rhinitis Pertinent Findings Denies fever 10/22/2016 None rhinitis Pertinent Findings Denies chills 10/22/2016 None Advance Directives No Advance Directive data Encounters Encounter Performer Location Codes Date ([id number]) [id number] EST. PATIENT, LEVEL IV Diagnosis: Alcoholic cirrhosis of liver with ascites[ICD10: K70.31] Diagnosis: Chronic atrial fibrillation[ICD10: I48.2] Diagnosis: Orthostatic hypotension[ICD10: I95.1] Julianne Paulson MD, [facility] CPT-4: 22042 06/04/2018 ([id number]) 62891 EST. PATIENT, LEVEL IV Diagnosis: Essential (primary) hypertension[ICD10: I10] Diagnosis: Alcoholic cirrhosis of liver with ascites[ICD10: K70.31] Diagnosis: Other pruritus[ICD10: L29.8] Julianne Paulson MD [facility] CPT- 4: 36789 03/19/2018 ([id number]) 78923 EST. PATIENT, LEVEL III Diagnosis: Alcoholic cirrhosis of liver with ascites[ICD10: K70.31] Julianne Paulson MD [facility] CPT-4: 59040 03/04/2018 ([id number]) 94232 EST. 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 PATIENT, LEVEL IV Diagnosis: Generalized abdominal pain[ICD10: R10.84] Diagnosis: Abnormal levels of other serum enzymes[ICD10: R74.8] Diagnosis: Alcoholic cirrhosis of liver with ascites[ICD10: K70.31] Diagnosis: Localized edema[ICD10: R60.0] Julianne Paulson MD [facility] CPT- 4: 51788 02/11/2018 ([id number]) 71482 EST. PATIENT, LEVEL IV Diagnosis: Essential (primary) hypertension[ICD10: I10] Diagnosis: Mastodynia[ICD10: N64.4] Julianne Paulson MD [facility] CPT-4: 20938 11/24/2017 ([id number]) 17503 EST. PATIENT, LEVEL III Diagnosis: Essential (primary) hypertension[ICD10: I10] Diagnosis: Chronic atrial fibrillation[ICD10: I48.2] Diagnosis: Adverse effect of diagnostic agents, initial encounter[ICD10: T50.8X5A] Julianne Paulson MD, [facility] CPT-4: 69807 09/2017 66370 EST. PATIENT, LEVEL III Diagnosis: Essential (primary) hypertension[ICD10: I10] Diagnosis: Chronic atrial fibrillation[ICD10: I48.2] Diagnosis: Asymptomatic microscopic hematuria[ICD10: R31.21] Evelia Paulson MD, [facility] CPT-4: 45445 01/23/2017 ([id number] EST. PATIENT, LEVEL III Diagnosis: Asymptomatic microscopic hematuria[ICD10: R31.21] Diagnosis: Chronic atrial fibrillation[ICD10: I48.2] Eva Paulson MD, [facility] CPT-4: 30774 11/28/2016 [id number] 71973 EST. PATIENT, LEVEL IV Diagnosis: Essential (primary) hypertension[ICD10: I10] Diagnosis: Anemia, unspecified[ICD10: D64.9] Diagnosis: Impaired fasting glucose[ICD10: R73.01] Diagnosis: Vitamin D deficiency, unspecified[ICD10: E55.9] Diagnosis: Chronic atrial fibrillation[ICD10: I48.2] Diagnosis: Other allergic rhinitis[ICD10: J30.89] Eva Paulson MD, [facility] CPT-4: 27155 11/11/2016 OFFICE VISIT, NEW - LEVEL 3 Diagnosis: Other allergic rhinitis[ICD10: J30.89] Diagnosis: Chronic atrial fibrillation[ICD10: I48.2] Evelia Paulson MD, [facility] CPT-4: 51417 10/22/2016 Plan of Care Planned Activity Notes Codes Status Date Visit Plan: Ascites - discussed with pt - he is still drinking alcohol and he is not planning on stopping - he states that he is wondering about hospice/comfort care. I have advised pt that we will get him set up for friday or friday for paracentesis. He is going to stop his xarelto for the next week and decrease xarelto to 1/2 pill daily once his paracentesis has occurred. Hypotension - stop extended release cartia and start on lower dose of cardizem 30mg three times daily. total time spent with patient over 45 minutes. 06/04/2018 Appointment: Julianne Paulson WPtel: [address] [place], [place] [id number] (15 min) Moderate 06/04/2018 Patient Education: Patient Medication Summary Completed 06/04/2018 Appointment: Julianne Paulson WPtel: [address] [place] [id number] (15 min) Moderate 04/30/2018 Visit Plan: Hypotension - stop the losartan and decrease dose of cartia from 240mg daily to 120mg daily. Monitor symptoms. Alcoholic Cirrhosis - continue with appts with Assessment Manager, monitor symptoms, if abdominal swelling worsens, will need to consider patient to have repeat paracentesis. Pruritus - rx for hydroxyzine 03/19/2018 Appointment: Julian[facility] Paulson [facility] [phone] [facility] [place] [place] (15 min) Moderate 03/19/2018 Patient Education: Patient Medication Summary Completed 03/19/2018 Referral: Dr Avery Referral Completed 03/12/2018 Visit Plan: Ascites - recurrent - pt to have appt with Dr. Dutta at radiology for paracentesis on 03/09/18 in the morning - he is to stop his xarelto until after the paracentesis. He is to see the cardiac care unit nurse on . 03/04/2018 Appointment: Julianne Paulson [facility]Ptel: [phone] [facility] [place] [place] (15 min) Moderate 03/04/2018 Patient Education: Patient Medication Summary Completed 03/04/2018 Visit Plan: Liver failure - his CT scan was negative for acute abnormality - Hepatitis C was negative - labs are pending for this week - I have informed pt we will initiat a referral - he would like to go to [place] if possible for the referral, therefore I have initiated a referral to Dr. Avery or one of his partners. Hyponatremia - check labs on Friday of this week. Alcoholism - continue to slowly cut back on alcohol intake - he is down from 4 drinks a day to 2 drinks a day - they will further decrease intake as his is also drinking heavily per her report which is reinforcing his behaviors/habits. 02/16/2018 Appointment: Julianne Paulson WPtel: [phone] [facility] [place] [place] (30 min) Complex 02/16/2018 Patient Education: Patient Medication Summary Completed 02/16/2018 Care Plan: Referral Order SNOMED-CT : [id number] Pending 02/16/2018 Visit Plan: Ascites - CT scan positive for large ascites, discussed with Dr. Dutta - he is going to have the patient scheduled for a Paracentesis on Friday of this week. Hyponatremia - due to the large amount of ascites - supportive care, monitor symptoms. Edema - discussed with pt - start on lasix and potassium, monitor symptoms. 02/11/2018 Appointment: Julianne Paulson WPtel: [facility] [place] (15 min) Moderate 02/11/2018 Patient Education: Patient Medication Summary Completed 02/11/2018 Patient Education: Patient Medication Summary Completed 02/11/2018 Care Plan: COMPLETE CBC AUTOMATED LOINC : 64151-5 Pending 02/11/2018 Care Plan: CT ABD & PELV W/CONTRAST LOINC : 16713-8 Pending 02/11/2018 Patient Education: Patient Medication Summary Completed 12/11/2017 Visit Plan: Hypertension - well controlled - continue with current medications, continue with no added salt diet. Pt has been encouraged to exercise daily. The pt has been advised to call the office if there are any acute concerns about change in blood pressure readings at home. Breast pain - bilateral mammograms to be obtained. 11/24/2017 Appointment: Julianne Paulson WPtel: [facility] [place] [place] (15 min) Moderate 11/24/2017 Patient Education: Patient Medication Summary Completed 11/24/2017 Care Plan: Bilateral DIAGNOSTICMAMMOGRAPHYDIGITAL LOINC : 41744-1 Pending 11/24/2017 Appointment: Julianne Paulson WPtel: [address] [place], [place] [id number] [place] (15 min) Moderate 07/01/2017 Patient Education: Patient Medication Summary Completed 06/19/2017 Care Plan: Hepatic Cancelled 06/19/2017 Visit Plan: Cough - possible allergic reaction to MICHAEL- Inhibitor - pt instructed as follows: zantac 150mg - take twice daily x 5 days benadryl 25mg take three times daily x 2 days stop the benzapril /hctz combo pill i sent a script for losartan hctz do not take it yet - get your blood pressure checked on before we will start the pill 06/10/2017 Appointment: Julianne Paulson WPtel: [facility] [place] (15 min) Moderate 06/10/2017 Patient Education: Patient Medication Summary Completed 06/10/2017 Appointment: Evelia Balderrama WPtel: [address] [place], [place] [id number] (30 min) Complex 04/24/2017 Referral: Juan Rothman WPtel: [phone] [id number] Referral Initiated 02/10/2017 Visit Plan: Hypertension - well controlled - continue with current medications, continue with no added salt diet. Pt has been encouraged to exercise daily. The pt has been advised to call the office if there are any acute concerns about change in blood pressure readings at home. Atrial Fibrillation - pt on chronic anticoagulation and is currently rate controlled. The pt is to have labs done as appropriate to monitor medication levels and is to report if they start to feel as if their heart rate is becoming uncontrolled. Hematuria - asymptomatic - will refer to Dr. Rothman - pt is to notify clinic with any changes, questions, or concerns. 01/23/2017 Appointment: Evelia Balderrama WPtel: [facility] [place] (30 min) Complex 01/23/2017 Patient Education: Patient Medication Summary Completed 01/23/2017 Care Plan: Referral Order SNOMED-CT : [id number] Cancelled 01/23/2017 Visit Plan: Afib-not rate controlled today-monitor blood pressure and pulse at home x 1 week and call with readings in 1 week-refer to cardiology-he has not seen a gas meter prover since afib diagnosis six years ago. Hematuria-suspect due to pradaxa-no longer visible but still microscopic- culture urine-patient to call if blood returns-no changes in medication for now 11/28/2016 Appointment: Eva De La Cruz WPtel: [phone] [place] (30 min) Complex 11/28/2016 Patient Education: Patient Medication Summary Completed 11/28/2016 Visit Plan: Hypertension - continue with no added salt diet. Pt has been encouraged to exercise daily. The pt has been advised to call the office if there are any acute concerns about change in blood pressure readings at home. STOP BENAZEPRILHCTZ to see if cough resolves Allergies-cough- kenalog injection today in the office Hx elevated fasting glucose-check Hgb A1C Vitamin D def-check level [id number]-[id number] controlled-no change in medications 11/11/2016 Appointment: Eva De La Cruz WPtel: [phone] [facility] [place] [address] (30 min) Complex 11/11/2016 Patient Education: Patient Medication Summary Completed 11/11/2016 Visit Plan: Allergies - chronic - recommended pt to use allergy medication as prescribed. Pt has been counseled as to the appropriate use of the medication. Pt to call if allergy symptoms are not controlled with the medication. If using nasal spray, instructions as follows: Nasal spray- use twice daily, one spray per nostril twice daily, after 30 minutes, rinse out nose with saline spray.. Use opposite hand per nostril to spray in the nasal steroid allergy spray. Atrial Fibrillation - pt on chronic anticoagulation and is currently rate controlled. The pt is to have labs done as appropriate to monitor medication levels and is to report if they start to feel as if their heart rate is becoming uncontrolled. 10/22/2016 Appointment: Evelia Balderrama WPtel: [facility] New Patient 10/22/2016 Patient Education: Patient Medication Summary Completed 10/22/2016 Referral: Juan Rothman WPtel: [phone] [facility] Referral Initiated Referral: Dr Avery Referral Appointment Requested Instructions Comment . Allergies - chronic - recommended pt to use allergy medication as prescribed. Pt has been counseled as to the appropriate use of the medication. Pt to call if allergy symptoms are not controlled with the medication. If using nasal spray, instructions as follows: Nasal spray- use twice daily, one spray per nostril twice daily, after 30 minutes, rinse out nose with saline spray.. Use opposite hand per nostril to spray in the nasal steroid allergy spray. Atrial Fibrillation - pt on chronic anticoagulation and is currently rate controlled. The pt is to have labs done as appropriate to monitor medication levels and is to report if they start to feel as if their heart rate is becoming uncontrolled. . Hypertension - well controlled - continue with current medications, continue with no added salt diet. Pt has been encouraged to exercise daily. The pt has been advised to call the office if there are any acute concerns about change in blood pressure readings at home. Breast pain - bilateral mammograms to be obtained. aveeno or eucerin cream for your skin stop the losartan new dose of CARTIA - the dose has been decreased from 240mg daily down to 120mg daily. . Hypotension - stop the losartan and decrease dose of cartia from 240mg daily to 120mg daily. Monitor symptoms. Alcoholic Cirrhosis - continue with appts with Assessment Manager, monitor symptoms, if abdominal swelling worsens, will need to consider patient to have repeat paracentesis. Pruritus - rx for hydroxyzine stop the xarelto - do not take until 03/10/18 . Ascites - recurrent - pt to have appt with Dr. Dutta at radiology for paracentesis on 03/09/18 in the morning - he is to stop his xarelto until after the paracentesis. He is to see the cardiac care unit nurse on 03/12/18. . Hypertension - well controlled - continue with current medications, continue with no added salt diet. Pt has been encouraged to exercise daily. The pt has been advised to call the office if there are any acute concerns about change in blood pressure readings at home. Atrial Fibrillation - pt on chronic anticoagulation and is currently rate controlled. The pt is to have labs done as appropriate to monitor medication levels and is to report if they start to feel as if their heart rate is becoming uncontrolled. Hematuria - asymptomatic - will refer to Dr. Rothman - pt is to notify clinic with any changes, questions, or concerns. monitor blood pressure and pulse and call with readings in [address] Hurley for evaluation culture urine . Afib-not rate controlled today-monitor blood pressure and pulse at home x 1 week and call with readings in 1 week-refer to cardiology-he has not seen a gas meter prover since afib diagnosis six years ago. Hematuria-suspect due to pradaxa-no longer visible but still microscopic- culture urine-patient to call if blood returns-no changes in medication for now STOP BENAZEPRIL MONITOR BLOOD PRESSURE AND PULSE -CALL FRIDAY WITH READINGS KENALOG INJECTION TODAY CHECK LABS . Hypertension - continue with no added salt diet. Pt has been encouraged to exercise daily. The pt has been advised to call the office if there are any acute concerns about change in blood pressure readings at home. STOP BENAZEPRILHCTZ to see if cough resolves Nlxxvazxv-sxoaq-feahexz injection today in the office Hx elevated fasting glucose-check Hgb A1C Vitamin D def-check level [id number]-[id number]-gbqs controlled-no change in medications decrease xarelto to 1/2 pill daily (10mg) - hold off on taking any xarelto for now because we are going to get you setup for a paracentesis early next week stop your cartia and start on the cardizem 30mg three times daily.. Ascites - discussed with pt - he is still drinking alcohol and he is not planning on stopping - he states that he is wondering about hospice/comfort care. I have advised pt that we will get him set up for friday or friday for paracentesis. He is going to stop his xarelto for the next week and decrease xarelto to 1/2 pill daily once his paracentesis has occurred. Hypotension - stop extended release cartia and start on lower dose of cardizem 30mg three times daily. total time spent with patient over 45 minutes. . Liver failure - his CT scan was negative for acute abnormality - Hepatitis C was negative - labs are pending for this week - I have informed pt we will initiat a referral - he would like to go to [place] if possible for the referral, therefore I have initiated a referral to Dr. Avery or one of his partners. Hyponatremia - check labs on Friday of this week. Alcoholism - continue to slowly cut back on alcohol intake - he is down from 4 drinks a day to 2 drinks a day - they will further decrease intake as his is also drinking heavily per her report which is reinforcing his behaviors/ habits. . Ascites - CT scan positive for large ascites, discussed with Dr. Dutta - he is going to have the patient scheduled for a Paracentesis on Friday of this week. Hyponatremia - due to the large amount of ascites - supportive care, monitor symptoms. Edema - discussed with pt - start on lasix and potassium, monitor symptoms. zantac 150mg - take twice daily x 5 days benadryl 25mg take three times daily x 2 days stop the benzapril /hctz combo pill i sent a script for losartan hctz do not take it yet - get your blood pressure checked on before we will start the pill . Cough - possible allergic reaction to [employer]HAEL-[employer]hib[employer] - pt instructed as follows: zantac 150mg - take twice daily x 5 days benadryl 25mg take three times daily x 2 days stop the benzapril /hctz combo pill i sent a script for losartan hctz do not take it yet - get your blood pressure checked on before we will start the pill
--- OUTSIDE RECORDS SUMMARY | 2018-06-21 09:54 | XMS REPORT | CCD ---
Author Author Evelia Balderrama MD, [facility] Address [address] [place] [address] Phone Care Team Providers Care Oyster Cultivator Name Role Phone PP Unavailable CCM Unavailable Summary Purpose Interface Exchange Insurance Providers Payer name Policy type / Coverage type Covered constitution party ID Effective Begin Date Effective End Date WPS Medicare Part B Medicare Part B [id number] Unknown [employer] Medicare Part B [id number] Unknown Family history Father Diagnosis Age At Onset Cancer Unknown Diabetes mellitus Type 1 Unknown Stroke Unknown Mother Diagnosis Age At Onset advanced age Unknown Sister Diagnosis Age At Onset Migraines Unknown Asthma Unknown Social History Social History Element Codes Description Effective Dates Tobacco history SNOMED CT: 3738497 Quit over 10 years ago occasionally smokes pot 02/16/2018 Marital status Unknown Vashti Valles 10/22/2016 Number of children Unknown 0 10/22/2016 Employment Unknown Retired 10/22/2016 Alcohol history Unknown occasionally drinks alcohol 10/22/2016 Frequency of drinks SNOMED CT: 766001840 10 drinks per week 10/22/2016 Has the patient ever used illegal drugs? Unknown Currently uses illegal drugs 10/22/2016 Allergies, Adverse Reactions, Alerts Substance Reaction Codes Entered Date Inactivated Date Status Naprosyn RxNorm: 7258 10/22/2016 No Inactive Date Active Past Medical History Illness Codes Condition Status Onset Date Resolved Date Alcoholic cirrhosis of liver with ascites ICD-9: 571.2 ICD-10: K70.31 Active 02/11/2018 Unknown Essential (primary) hypertension ICD-9: 401.1 ICD-10: [...] ICD-9: 995.27 ICD-10: T50.8X5A Active 06/10/2017 Unknown Chronic atrial fibrillation ICD-9: 427.31 ICD-10: I48.2 Active 10/22/2016 Unknown Asymptomatic microscopic hematuria ICD-9: 599.72 ICD-10: [...] ascites ICD-9: 571.2 ICD-10: K70.31 02/11/2018 Active Essential (primary) hypertension ICD-9: 401.1 ICD-10: [...] encounter ICD-9: 995.27 ICD-10: T50.8X5A 06/10/2017 Active Chronic atrial fibrillation ICD-9: 427.31 ICD-10: I48.2 10/22/2016 Active Asymptomatic microscopic hematuria ICD-9: 599.72 ICD-10: R31.21 11/28/2016 Active Anemia, unspecified ICD-9: 285.9 ICD-10: D64.9 11/11/2016 Active Impaired fasting glucose ICD-9: 790.21 ICD-10: R73.01 11/11/2016 Active Other allergic rhinitis ICD-9: 477.8 ICD-10: J30.89 10/22/2016 Active Vitamin D deficiency, unspecified ICD-9: 268.9 ICD-10: E55.9 11/11/2016 Active Medications Medication Codes Instructions Start Date Stop Date Status Fill Instructions hydroxyzine HCl 25 mg tablet RxNorm: 973702 1 Tablet(s) PO TID as needed itching 03/23/2018 05/21/2018 Active Cartia XT 120 mg capsule,extended release RxNorm: 477044 1 Capsule(s) PO daily 03/19/2018 10/14/2018 Active hydroxyzine HCl 10 mg tablet RxNorm: 418140 1 Tablet(s) PO TID as needed itching 03/19/2018 03/22/2018 Inactive Lasix 20 mg tablet RxNorm: 010646 1 Tablet(s) PO BID 201702/15/2018 Inactive Xarelto 20 mg tablet RxNorm: 8411636 1 Tablet(s) PO daily -Managed by Dr. Hurley 02/11/2018 11/07/2018 Active potassium chloride ER 10 mEq capsule,extended release RxNorm: 044518 1 Capsule(s) PO daily 02/11/2018 02/15/2018 Inactive Lasix 20 mg tablet RxNorm: 002143 TAKE 1 TABLET BY MOUTH EVERY MORNING NEEDED FOR EDEMA 07/17/2017 10/14/2017 Inactive Phenergan-Codeine 6.25 mg-10 mg/5 mL syrup RxNorm: 660686 5-10 Milliliter(s) PO Q6 as needed cough 06/10/2017 No Stop Date Active losartan 50 mg-hydrochlorothiazide 12.5 mg tablet RxNorm: 086048 1 Tablet(s) PO daily 06/10/2017 03/18/2018 Inactive Kenalog 40 mg/mL suspension for injection RxNorm: 8176219 1 Milliliter(s) Inj 06/10/2017 06/10/2017 Inactive atenolol 50 mg tablet RxNorm: 825873 1 Tablet(s) PO daily 201711/25/2017 Inactive atenolol 50 mg tablet RxNorm: 328231 1 Tablet(s) PO daily 201605/29/2017 Inactive simvastatin 20 mg tablet RxNorm: 519286 TAKE 1 TABLET BY MOUTH EVERY NIGHT AT BEDTIME 02/24/2017 08/22/2017 Inactive Zyrtec 10 mg tablet RxNorm: 9613522 1 TABLET(S) PO DAILY 02/1708/15/2017 Inactive Cartia XT 240 mg capsule,extended release RxNorm: 978020 1 Capsule(s) PO daily 01/20/2017 03/18/2018 Inactive diltiazem 120 mg tablet RxNorm: 446223 1 Tablet(s) PO QHS 11/2606/09/2017 Inactive Vitamin D2 50,000 unit capsule RxNorm: 814377 1 Capsule(s) PO QW 11/15/2016 11/14/2016 Inactive take with vit d 2000 units daily Vitamin D2 50,000 unit capsule RxNorm: 966590 1 Capsule(s) PO QW 11/15/2016 02/06/2017 Inactive take with vit d 2000 units daily Kenalog 40 mg/mL suspension for injection RxNorm: 7821772 1 Milliliter(s) Inj 11/11/2016 11/11/2016 Inactive Pradaxa 150 mg capsule RxNorm: 1228284 TAKE ONE CAPSULE BY MOUTH TWICE DAILY 11/11/2016 06/09/2017 Inactive benazepril 20 mg-hydrochlorothiazide 12.5 mg tablet RxNorm: 516389 1 Tablet(s) PO daily 11/05/2016 06/09/2017 Inactive benazepril 20 mg-hydrochlorothiazide 12.5 mg tablet RxNorm: 747437 1 Tablet(s) PO daily 11/05/2016 11/04/2016 Inactive simvastatin 20 mg tablet RxNorm: 627704 TAKE 1 TABLET BY MOUTH EVERY NIGHT AT BEDTIME 10/24/2016 01/21/2017 Inactive Zyrtec 10 mg tablet RxNorm: 9847648 1 Tablet(s) PO daily 10/2211/20/2016 Inactive Pradaxa 150 mg capsule RxNorm: 8076982 1 Capsule(s) PO BID No Start Date 11/10/2016 Inactive Lasix 20 mg tablet RxNorm: 314931 1 Tablet(s) PO daily as needed No Start Date 07/16/2017 Inactive aspirin 81 mg chewable tablet RxNorm: 393506 1 Tablet(s) PO daily No Start Date 01/20/2017 Inactive Phenergan-Codeine 6.25 mg-10 mg/5 mL syrup RxNorm: 553552 5-10 Milliliter(s) PO Q6 as needed cough No Start Date 2017 Inactive diltiazem 120 mg tablet RxNorm: 055121 1 Tablet(s) PO daily No Start Date 11/25/2016 Inactive atenolol 50 mg tablet RxNorm: 011700 1 Tablet(s) PO daily No Start Date 03/16/2017 Inactive Xarelto 20 mg tablet RxNorm: 1716743 1 Tablet(s) PO daily -Managed by Dr. Hurley No Start Date 02/10/2018 Inactive Cartia XT 240 mg capsule,extended release RxNorm: 516591 1 Capsule(s) PO daily No Start Date 01/19/2017 Inactive simvastatin 20 mg tablet RxNorm: 868721 1 Tablet(s) PO QHS No Start Date 10/23/2016 Inactive Medication Administered Medication Codes Instructions Start Date Status Kenalog 40 mg/mL suspension for injection RxNorm: 6782669 1Milliliter 06/10/2017 No longer Active Kenalog 40 mg/mL suspension for injection RxNorm: 0448651 1Milliliter 11/11/2016 No longer Active Immunizations Vaccine Codes Date Status Hepatitis A CVX: 83 03/18/2018 completed Hepatitis B Unknown 03/18/2018 completed Assessments Condition Codes Effective Dates Other pruritus ICD-10: L29.8 ICD-9: 698.8 03/19/2018 Alcoholic cirrhosis of liver with ascites ICD-10: K70.31 ICD-9: 571.2 03/19/2018 Essential (primary) hypertension ICD-10: I10 ICD-9: [...] chemistry ICD-10 : R79.89 ICD-9: 790.6 06/19/2017 Chronic atrial fibrillation ICD-10: I48.2 ICD-9: 427.31 06/10/2017 Adverse effect of diagnostic agents, initial encounter ICD- 10: T50.8X5A ICD-9: 995.27 06/10/2017 Asymptomatic microscopic hematuria ICD-10: R31.21 ICD-9: 599.72 01/23/2017 Other allergic rhinitis ICD-10: J30.89 ICD-9: 477.8 11/11/2016 Vitamin D deficiency, unspecified ICD-10: E55.9 ICD-9: 268.9 11/11/2016 Impaired fasting glucose ICD-10: R73.01 ICD-9: 790.21 11/11/2016 Anemia, unspecified ICD-10: D64.9 ICD-9: 285.9 11/11/2016 Reason For Visit Reason For Visit Effective Dates Notes pruritus 03/19/2018 weight gain/obesity 03/04/2018 weight gain/obesity [...] 9.0 g/dl 02/18/2018 Cbc With Differential Ord2 Neut% 73.2 % 02/18/2018 Cbc With Differential Ord2 HCT 27.3 % 02/18/2018 Cbc With Differential Ord2 MCV 83.0 fl 02/18/2018 Cbc With Differential Ord2 Lymph% 15.3 % 02/18/2018 Cbc With Differential Ord2 MCH 27.4 pg 02/18/2018 Cbc With Differential Ord2 [place]% 10.2 % 02/18/2018 Cbc With Differential Ord2 Eos% 0.9 % 02/18/2018 Cbc With Differential Ord2 MCHC 33.0 pg 02/18/2018 Cbc With Differential Ord2 PLT 503 K/ul 02/18/2018 Cbc With Differential Ord2 Baso% 0.4 % 02/18/2018 Cbc With Differential Ord2 Neut ABS# 9.09 K/ul 02/18/2018 Cbc With Differential Ord2 RDW 16.1 % 02/18/2018 Cbc With Differential Ord2 Lymph ABS# 1.90 K/ul 02/18/2018 Cbc With Differential Ord2 [place] ABS# 1.3 K/ul 02/18/2018 Cbc With Differential Ord2 Eos ABS# 0.1 K/ul 02/18/2018 Cbc With Differential Ord2 Baso ABS# 0.1 K/ul 02/18/2018 Amylase Ord34 AMYLASE 38 U/L 02/18/2018 Comp Metabolic Xba435 NA 128 mEq/L 02/18/2018 Comp Metabolic Vaz731 K 5.0 mEq/L 02/18/2018 Comp Metabolic Cdi119 CL 94 mEq/L 02/18/2018 Comp Metabolic Fkw275 CO2 22.0 mEq/L 02/18/2018 Comp Metabolic Fbm219 ANION GAP 17 02/18/2018 Comp Metabolic Ipk520 GLUCOSE 81 mg/dL 02/18/2018 Comp Metabolic Kqs492 Creat 1.5 mg/dL 02/18/2018 Comp Metabolic Adb968 eGFR 48 ml/min/1.73m2 02/18/2018 Comp Metabolic Bkd751 BUN 18 mg/dL 02/18/2018 Comp Metabolic Gca470 B/C Ratio 11.8 Ratio 02/18/2018 Comp Metabolic Pln677 CALCIUM 8.6 mg/dL 02/18/2018 Comp Metabolic Jlt160 ALK PHOS 261 U/L 02/18/2018 Comp Metabolic Kcc994 AST(SGOT) 64 U/L 02/18/2018 Comp Metabolic Neu191 ALT(SGPT) 21 U/L 02/18/2018 Comp Metabolic Awo971 BILI T 0.7 mg/dL 02/18/2018 Comp Metabolic Fmd756 ALBUMIN 2.9 g/dL 02/18/2018 Comp Metabolic Qse193 TPRO 5.8 g/dL 02/18/2018 Comp Metabolic Pcg958 GLOB 3.0 g/dL 02/18/2018 Comp Metabolic Vgy551 A/G Ratio 1.0 Ratio 02/18/2018 Comp Metabolic Jsr917 Osmo 258 mOsmo 02/18/2018 Lipase Jgy153 LIPASE 57 U/L 02/18/2018 Lipid Ord30 CHOL 222 mg/dL 04/08/2017 Lipid Ord30 HDL 77.0 mg/dl 04/08/2017 Lipid Ord30 TRIG 79 mg/dL 04/08/2017 Lipid Ord30 LDL 129 mg/dL 04/08/2017 Lipid Ord30 C/HDL 2.9 Ratio 04/08/2017 Hepatic Yut658 ALBUMIN 4.0 g/dL 04/08/2017 Hepatic Vcb212 TPRO 6.6 g/dL 04/08/2017 Hepatic Kxj825 GLOB 2.6 g/dL 04/08/2017 Hepatic Etz722 A/G Ratio 1.5 Ratio 04/08/2017 Hepatic Sqo215 ALK PHOS 121 U/L 04/08/2017 Hepatic Cvh301 ALT(SGPT) 57 U/L 04/08/2017 Hepatic Ofy674 AST(SGOT) 79 U/L 04/08/2017 Hepatic Foj799 BILI T 1.1 mg/dL 04/08/2017 Hepatic Nqj794 BILI D 0.3 mg/dL 04/08/2017 Hepatic Gfy824 BILI I 0.8 mg/dL 04/08/2017 Comp Metabolic Ppe112 NA 136 mEq/L 02/12/2017 Comp Metabolic Onv653 K 4.3 mEq/L 02/12/2017 Comp Metabolic Fbs380 CL 92 mEq/L 02/12/2017 Comp Metabolic Cxg925 CO2 28.0 mEq/L 02/12/2017 Comp Metabolic Ceo788 ANION GAP 20 02/12/2017 Comp Metabolic Uyu178 GLUCOSE 77 mg/dL 02/12/2017 Comp Metabolic Vlb909 Creat 1.0 mg/dL 02/12/2017 Comp Metabolic Hez297 eGFR 83 ml/min/1.73m2 02/12/2017 Comp Metabolic Uny764 BUN 11 mg/dL 02/12/2017 Comp Metabolic Zru462 B/C Ratio 11.5 Ratio 02/12/2017 Comp Metabolic Cax330 CALCIUM 9.4 mg/dL 02/12/2017 Comp Metabolic Uiv038 ALK PHOS 109 U/L 02/12/2017 Comp Metabolic Avp804 AST(SGOT) 81 U/L 02/12/2017 Comp Metabolic Ozk332 ALT(SGPT) 43 U/L 02/12/2017 Comp Metabolic Xjp966 BILI T 0.6 mg/dL 02/12/2017 Comp Metabolic Ama722 ALBUMIN 3.9 g/dL 02/12/2017 Comp Metabolic Uzz335 TPRO 6.8 g/dL 02/12/2017 Comp Metabolic Wvk726 GLOB 2.9 g/dL 02/12/2017 Comp Metabolic Nzy286 A/G Ratio 1.4 Ratio 02/12/2017 Comp Metabolic Jrg386 Osmo 270 mOsmo 02/12/2017 Urine Culture Ucult Complete NO Growth Day 2 11/30/2016 Urine Culture Ucult Preliminary NO Growth Day 1 11/30/2016 %Hba1C Kwg993 % HbA1c 42512-6 5.5 % 11/11/2016 %Hba1C Jib071 Gluc Ave 111 mg/dL 11/11/2016 Vitamin D 25 Oh Kom2254 VITAMIN D, 25 HYDROXY 26.73 ng/mL Comp Metabolic Kov079 NA 132 mEq/L 11/11/2016 Comp Metabolic Apz925 K 4.1 mEq/L 11/11/2016 Comp Metabolic Qsa830 CL 94 mEq/L 11/11/2016 Comp Metabolic Yss733 CO2 24.0 mEq/L 11/11/2016 Comp Metabolic Cvx719 ANION GAP 18 11/11/2016 Comp Metabolic Oxv798 GLUCOSE 103 mg/dL 11/11/2016 Comp Metabolic Xcm259 Creat 1.4 mg/dL 11/11/2016 Comp Metabolic Qrv948 eGFR 54 ml/min/1.73m2 11/11/2016 Comp Metabolic Vge045 BUN 22 mg/dL 11/11/2016 Comp Metabolic Rhr330 B/C Ratio 15.7 Ratio 11/11/2016 Comp Metabolic Lrv359 CALCIUM 8.8 mg/dL 11/11/2016 Comp Metabolic Gay436 ALK PHOS 86 U/L 11/11/2016 Comp Metabolic Bsh597 AST(SGOT) 40 U/L 11/11/2016 Comp Metabolic Hay766 ALT(SGPT) 24 U/L 11/11/2016 Comp Metabolic Asn031 BILI T 0.4 mg/dL 11/11/2016 Comp Metabolic Uhf649 ALBUMIN 3.9 g/dL 11/11/2016 Comp Metabolic Qbm364 TPRO 6.4 g/dL 11/11/2016 Comp Metabolic Bsq515 GLOB 2.5 g/dL 11/11/2016 Comp Metabolic And364 A/G Ratio 1.5 Ratio 11/11/2016 Comp Metabolic Ffs916 Osmo 268 mOsmo 11/11/2016 Cbc With Differential [...] 18.8 % 11/11/2016 Cbc With Differential Ord2 [place]% 13.5 % 11/11/2016 Cbc With Differential Ord2 MCH 30.8 pg 11/11/2016 Cbc With Differential Ord2 MCHC 33.5 pg 11/11/2016 Cbc With Differential Ord2 Eos% 3.1 % 11/11/2016 Cbc With Differential Ord2 PLT 327 K/ul 11/11/2016 Cbc With Differential Ord2 Baso% 0.4 % 11/11/2016 Cbc With Differential Ord2 RDW 15.4 % 11/11/2016 Cbc With Differential Ord2 Neut ABS# 4.51 K/ul 11/11/2016 Cbc With Differential Ord2 Lymph ABS# 1.32 K/ul 11/11/2016 Cbc With Differential Ord2 [place] ABS# 1.0 K/ul 11/11/2016 Cbc With Differential Ord2 Eos ABS# 0.2 K/ul 11/11/2016 Cbc With Differential Ord2 Baso ABS# 0.0 K/ul 11/11/2016 Review of Systems System Result Effective Dates Constitutional recent illness 03/19/2018 Constitutional No chills [...] Procedure Codes Date THER/PROPH/DIAG INJ SC/IM CPT-4: 22764 06/10/2017 TRIAMCINOLONE ACET INJ NOS CPT-4: J3301 06/10/2017 TRIAMCINOLONE ACET INJ NOS CPT-4: J3301 11/11/2016 Vital Signs Date Vital 03/19/2018 Blood Pressure 1: 90/58 Code : 8480-6 BMI: 28.4 Code : 75934-7 Heart Rate 1 : 76 bpm Height: 5'11" SpO2: 96% Weight: 203 lbs 5 oz 03/04/2018 Blood Pressure 1: 108/62 Code : 8480-6 BMI: 31.2 Code : 54699-5 Heart Rate 1 : 106 bpm Height: 5'11 " SpO2: 99% Weight: 224 lbs 02/16/2018 Blood Pressure 1: 120/64 Code : 8480-6 BMI: 30.8 Code : 80956-2 Heart Rate 1 : 106 bpm Height: 5'11 " Respiratory Rate: 22 bpm SpO2: 97% Weight: 221 lbs 02/11/2018 Blood Pressure 1: 120/66 Code : 8480-6 BMI: 34.0 Code : 15946-6 Heart Rate 1 : 99 bpm Height: 5'11" Respiratory Rate: 16 bpm SpO2: 98% Weight: 244 lbs 11/24/2017 Blood Pressure 1: 112/64 Code : 8480-6 BMI: 31.8 Code : 43616-5 Heart Rate 1 : 97 bpm Height: 5'11" SpO2: 96% Weight: 228 lbs 06/10/2017 Blood Pressure 1: 92/58 Code : 8480-6 BMI: 30.8 Code : 77301-6 Heart Rate 1 : 53 bpm Height: 5'11" SpO2: 98% Temperature: 36.4 (C) / 97.5 (F) Weight: 221 lbs 01/23/2017 Blood Pressure 1: 148/82 Code : 8480-6 BMI: 29.8 Code : 12858-8 Heart Rate 1 : 97 bpm Height: 5'11" SpO2: 97% Weight: 214 lbs 11/28/2016 Blood Pressure 1: 140/62 Code : 8480-6 BMI: 29.7 Code : 97887-7 Heart Rate 1 : 102 bpm Height: 5'11 " SpO2: 97% Weight: 213 lbs 11/11/2016 Blood Pressure 1: 114/60 Code : 8480-6 Heart Rate 1: 62 bpm SpO2: 96% Weight: 213 lbs 8 oz 10/22/2016 Blood Pressure 1: 136/68 Code : 8480-6 BMI: 28.9 Code : 42090-6 Heart Rate 1 : 56 bpm Height: 5'11" SpO2: 98% Weight: 207 lbs Functional Status No Functional Status data History of Present Illness Symptom Name Status Result Effective Date Notes Location-Major on the chest 03/19/2018 None Quality [...] data Encounters Encounter Performer Location Codes Date ([id number]) 86431 EST. PATIENT, LEVEL IV Diagnosis: Essential (primary) hypertension[ICD10: I10] Diagnosis: Alcoholic cirrhosis of liver with ascites[ICD10: K70.31] Diagnosis: Other pruritus[ICD10: L29.8] Julianne Paulson MD [facility] CPT- 4: 39223 03/19/2018 ([id number]) 01935 EST. PATIENT, LEVEL III Diagnosis: Alcoholic cirrhosis of liver with ascites[ICD10: K70.31] Julianne Paulson MD [facility] CPT-4: 45928 03/04/2018 ([id number]) 00880 EST. PATIENT, LEVEL III Diagnosis: Other specified abnormal findings of blood chemistry[ICD10: R79.89] Diagnosis: 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 coma[ICD10: K70.40] Diagnosis: Hypo-osmolality and hyponatremia[ICD10: E87.1] Julianne Paulson MD [facility] CPT-4: 07026 02/16/2018 ([id number]) 21710 EST. PATIENT, LEVEL IV Diagnosis: Generalized abdominal pain[ICD10: R10.84] Diagnosis: Abnormal levels of other serum enzymes[ICD10: R74.8] Diagnosis: Alcoholic cirrhosis of liver with ascites[ICD10: K70.31] Diagnosis: Localized edema[ICD10: R60.0] Julianne Paulson MD [facility] CPT- 4: 35079 02/11/2018 ([id number]) 47864 EST. PATIENT, LEVEL IV Diagnosis: Essential (primary) hypertension[ICD10: I10] Diagnosis: Mastodynia[ICD10: N64.4] Julianne Paulson MD [facility] CPT-4: 20315 11/24/2017 ([id number]) 80109 EST. PATIENT, LEVEL III Diagnosis: Essential (primary) hypertension[ICD10: I10] Diagnosis: Chronic atrial fibrillation[ICD10: I48.2] Diagnosis: Adverse effect of diagnostic agents, initial encounter[ICD10: T50.8X5A] Julianne Paulson MD [facility] CPT-4: 94494 09/2017 21136 EST. PATIENT, LEVEL III Diagnosis: Essential (primary) hypertension[ICD10: I10] Diagnosis: Chronic atrial fibrillation[ICD10: I48.2] Diagnosis: Asymptomatic microscopic hematuria[ICD10: R31.21] Evelia Paulson MD, [facility] CPT-4: 00729 01/23/2017 ([id number]) 54105 EST. PATIENT, LEVEL III Diagnosis: Asymptomatic microscopic hematuria[ICD10: R31.21] Diagnosis: Chronic atrial fibrillation[ICD10: I48.2] Eva Paulson MD, [facility] CPT-4: 46754 11/28/2016 ([id number]) 19471 EST. PATIENT, LEVEL IV Diagnosis: Essential (primary) hypertension[ICD10: I10] Diagnosis: Anemia, unspecified[ICD10: D64.9] Diagnosis: Impaired fasting glucose[ICD10: R73.01] Diagnosis: Vitamin D deficiency, unspecified[ICD10: E55.9] Diagnosis: Chronic atrial fibrillation[ICD10: I48.2] Diagnosis: Other allergic rhinitis[ICD10: J30.89] Eva Paulson MD, [facility] CPT-4: 55173 11/11/2016 OFFICE VISIT, NEW - LEVEL 3 Diagnosis: Other allergic rhinitis[ICD10: J30.89] Diagnosis: Chronic atrial fibrillation[ICD10: I48.2] Evelia Paulson MD, [facility] CPT-4: 48412 10/22/2016 Plan of Care Planned Activity Notes Codes Status Date Visit Plan: Hypotension - stop the losartan and decrease dose of cartia from 240mg daily to 120mg daily. Monitor symptoms. Alcoholic Cirrhosis - continue with appts with [employer], monitor symptoms, if abdominal swelling worsens, will need to consider patient to have repeat paracentesis. Pruritus - rx for hydroxyzine 03/19/2018 Appointment: Julianne Paulson WPtel: [address] [place], [place] [phone] (15 min) Moderate 03/19/2018 Patient Education: Patient Medication Summary Completed 03/19/2018 Referral: Dr Avery Referral Completed 03/12/2018 Visit Plan: Ascites - recurrent - pt to have appt with Dr. Dutta at radiology for paracentesis on 03/09/18 in the morning - he is to stop his xarelto until after the paracentesis. He is to see the teradata architect on . 03/04/2018 App[facility]ment: [facility] [phone] [facility] [place] (15 min) Moderate 03/04/2018 Patient Education: Patient Medication Summary Completed 03/04/2018 Visit Plan: Liver failure - his CT scan was negative for acute abnormality - Hepatitis C was negative - labs are pending for this week - I have informed pt we will initiat a referral - he would like to go to [facility] if possible for the referral, therefore I [...] behaviors/habits. 02/16/2018 Appointment: Julian[facility] Paul[facility]el[facility] [phone] [facility] [place] (30 min) Complex 02/16/2018 Patient Education: Patient Medication Summary Completed 02/16/2018 Care Plan: Referral Order SNOMED-CT : [id number] Pending 02/16/2018 Visit Plan: Ascites - CT [...] monitor symptoms. 02/11/2018 Appointment: Julianne Paulson WPtel: [facility] [place] (15 min) Moderate 02/11/2018 Patient Education: Patient Medication Summary Completed 02/11/2018 Patient Education: Patient Medication Summary Completed 02/11/2018 Care Plan: COMPLETE CBC AUTOMATED LOINC : 14622-7 Pending 02/11/2018 Care Plan: CT ABD & PELV W/CONTRAST LOINC : 73328-0 Pending 02/11/2018 Patient Education: Patient Medication Summary [...] be obtained. 11/24/2017 Appointment: Julianne Paulson WPtel: [facility] (15 min) Moderate 11/24/2017 Patient Education: Patient Medication Summary Completed 11/24/2017 Care Plan: Bilateral DIAGNOSTICMAMMOGRAPHYDIGITAL LOINC : 26999-9 Pending 11/24/2017 Appointment: Julianne Paulson WPtel: [facility] (15 min) Moderate 07/01/2017 Patient Education: Patient [...] the pill 06/10/2017 Appointment: Julianne Paulson WPtel: [address] [place], [place] [phone] (15 min) Moderate 06/10/2017 Patient Education: Patient Medication Summary Completed 06/10/2017 Appointment: Evelia Balderrama WPtel: [facility] (30 min) Complex 04/24/2017 Referral: [facility] [phone] [facility] Referral Initiated 02/10/2017 Visit Plan: Hypertension - [...] or concerns. 01/23/2017 Appointment: Evelia Balderrama WPtel: [address] [place], [place] [phone] (30 min) Complex 01/23/2017 Patient Education: Patient Medication Summary Completed 01/23/2017 Care Plan: Referral Order SNOMED-CT : [id number] Cancelled 01/23/2017 Visit Plan: Afib-not rate controlled today-monitor blood pressure and pulse at home x 1 week and call with readings in 1 week-refer to cardiology-he has not seen a new car make ready mechanic since afib diagnosis six years ago. Hematuria-suspect due to pradaxa-no longer visible but still microscopic- culture urine-patient to call if blood returns-no changes in medication for now 11/28/2016 Appointment: Eva De La Cruz WPtel: [phone] (30 min) Complex 11/28/2016 Patient Education: Patient [...] glucose-check Hgb A1C Vitamin D def-check level Wfjg-pubkgsm-ekzi controlled-no change in medications 11/11/2016 Appointment: Eva De La Cruz WPtel: [address] [place], [place] [phone] (30 min) Complex 11/11/2016 Patient Education: Patient [...] becoming uncontrolled. 10/22/2016 Appointment: [facility]vel[facility] Balderrama [facility]el[facility] [phone] [facility] New Patient 10/22/2016 Patient Education: Patient Medication Summary Completed 10/22/2016 Referral: Juan Rothman WPtel: [phone] [facility] [id number] Referral Initiated Referral: Dr Avery Referral Appointment [...] Alcoholic Cirrhosis - continue with appts with [employer], monitor symptoms, if abdominal swelling worsens, will [...] the paracentesis. He is to see the teradata architect on 03/12/18. . Hypertension - well controlled [...] week-refer to cardiology-he has not seen a new car make ready mechanic since afib diagnosis six years ago. Hematuria-suspect [...] STOP BENAZEPRILHCTZ to see if cough resolves Jpiualvsg-skdxa-hbunlep injection today in the office Hx elevated fasting glucose-check Hgb A1C Vitamin D def-check level Llfd-fsinssh-fler controlled-no change in medications . Liver failure - his CT scan was negative for acute abnormality - Hepatitis C was negative - labs are pending for this week - I have informed pt we will initiat a referral - he would like to go to [facility] if possible for the referral, therefore I [...]
--- OUTSIDE RECORDS SUMMARY | 2018-06-21 09:55 | XMS REPORT | CCD ---
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 Name Role Phone PP Unavailable CCM Unavailable Summary Purpose Interface Exchange Insurance Providers Payer name Policy type / Coverage type Covered democrat ID Effective Begin Date Effective End Date WPS Medicare Part B Medicare Part B [id number] Unknown Bankers [place] Medicare Part B [id number] Unknown Family history Father Diagnosis Age At Onset Cancer Unknown Diabetes mellitus Type 1 Unknown Stroke Unknown Mother Diagnosis Age At Onset advanced age Unknown Sister Diagnosis Age At Onset Migraines Unknown Asthma Unknown Social History Social History Element Codes Description Effective Dates Tobacco history SNOMED CT: 4367959 Quit over 10 years ago occasionally smokes pot 02/16/2018 Marital status Unknown Vashti Valles 10/22/2016 Number of children Unknown 0 10/22/2016 Employment Unknown Retired 10/22/2016 Alcohol history Unknown occasionally drinks alcohol 10/22/2016 Frequency of drinks SNOMED CT: 836542595 10 drinks per week 10/22/2016 Has the [...] Stop Date Status Fill Instructions hydroxyzine HCl 10 mg tablet RxNorm: 411713 1 Tablet(s) PO TID as needed itching 03/19/2018 05/17/2018 Active Cartia XT 120 mg capsule,extended release RxNorm: 945929 1 Capsule(s) PO daily 03/19/2018 10/14/2018 Active Lasix 20 mg tablet RxNorm: 531681 1 Tablet(s) PO BID 201702/15/2018 Inactive Xarelto 20 mg tablet RxNorm: 5266884 1 Tablet(s) PO daily -Managed by Dr. Hurley 02/11/2018 11/07/2018 Active potassium chloride ER 10 mEq capsule,extended release RxNorm: 136996 1 Capsule(s) PO daily 02/11/2018 02/15/2018 Inactive Lasix 20 mg tablet RxNorm: 861682 TAKE 1 TABLET BY MOUTH EVERY MORNING NEEDED FOR EDEMA 07/17/2017 10/14/2017 Inactive Phenergan-Codeine 6.25 mg-10 mg/5 mL syrup RxNorm: 716974 5-10 Milliliter(s) PO Q6 as needed cough 06/10/2017 No Stop Date Active losartan 50 mg-hydrochlorothiazide 12.5 mg tablet RxNorm: 197409 1 Tablet(s) PO daily 06/10/2017 03/18/2018 Inactive Kenalog 40 mg/mL suspension for injection RxNorm: 8490304 1 Milliliter(s) Inj 06/10/2017 06/10/2017 Inactive atenolol 50 mg tablet RxNorm: 622503 1 Tablet(s) PO daily 201711/25/2017 Inactive atenolol 50 mg tablet RxNorm: 305321 1 Tablet(s) PO daily 201605/29/2017 Inactive simvastatin 20 mg tablet RxNorm: 163243 TAKE 1 TABLET BY MOUTH EVERY NIGHT AT BEDTIME 02/24/2017 08/22/2017 Inactive Zyrtec 10 mg tablet RxNorm: 0690769 1 TABLET(S) PO DAILY 02/1708/15/2017 Inactive Cartia XT 240 mg capsule,extended release RxNorm: 382801 1 Capsule(s) PO daily 01/20/2017 03/18/2018 Inactive diltiazem 120 mg tablet RxNorm: 237609 1 Tablet(s) PO QHS 11/2606/09/2017 Inactive Vitamin D2 50,000 unit capsule RxNorm: 545516 1 Capsule(s) PO QW 11/15/2016 11/14/2016 Inactive take with vit d 2000 units daily Vitamin D2 50,000 unit capsule RxNorm: 042335 1 Capsule(s) PO QW 11/15/2016 02/06/2017 Inactive take with vit d 2000 units daily Kenalog 40 mg/mL suspension for injection RxNorm: 7251348 1 Milliliter(s) Inj 11/11/2016 11/11/2016 Inactive Pradaxa 150 mg capsule RxNorm: 6664365 TAKE ONE CAPSULE BY MOUTH TWICE DAILY 11/11/2016 06/09/2017 Inactive benazepril 20 mg-hydrochlorothiazide 12.5 mg tablet RxNorm: 781080 1 Tablet(s) PO daily 11/05/2016 06/09/2017 Inactive benazepril 20 mg-hydrochlorothiazide 12.5 mg tablet RxNorm: 676253 1 Tablet(s) PO daily 11/05/2016 11/04/2016 Inactive simvastatin 20 mg tablet RxNorm: 031626 TAKE 1 TABLET BY MOUTH EVERY NIGHT AT BEDTIME 10/24/2016 01/21/2017 Inactive Zyrtec 10 mg tablet RxNorm: 9327169 1 Tablet(s) PO daily 10/2211/20/2016 Inactive Pradaxa 150 mg capsule RxNorm: 2544614 1 Capsule(s) PO BID No Start Date 11/10/2016 Inactive Lasix 20 mg tablet RxNorm: 629895 1 Tablet(s) PO daily as needed No Start Date 07/16/2017 Inactive aspirin 81 mg chewable tablet RxNorm: 775619 1 Tablet(s) PO daily No Start Date 01/20/2017 Inactive Phenergan-Codeine 6.25 mg-10 mg/5 mL syrup RxNorm: 569883 5-10 Milliliter(s) PO Q6 as needed cough No Start Date 2017 Inactive diltiazem 120 mg tablet RxNorm: 721551 1 Tablet(s) PO daily No Start Date 11/25/2016 Inactive atenolol 50 mg tablet RxNorm: 032898 1 Tablet(s) PO daily No Start Date 03/16/2017 Inactive Xarelto 20 mg tablet RxNorm: 7398112 1 Tablet(s) PO daily -Managed by Dr. Hurley No Start Date 02/10/2018 Inactive Cartia XT 240 mg capsule,extended release RxNorm: 079711 1 Capsule(s) PO daily No Start Date 01/19/2017 Inactive simvastatin 20 mg tablet RxNorm: 222975 1 Tablet(s) PO QHS No Start Date 10/23/2016 Inactive Medication Administered Medication Codes Instructions Start Date Status Kenalog 40 mg/mL suspension for injection RxNorm: 1109604 1Milliliter 06/10/2017 No longer Active Kenalog 40 mg/mL suspension for injection RxNorm: 8690151 1Milliliter 11/11/2016 No longer Active Immunizations Vaccine [...] 27.4 pg 02/18/2018 Cbc With Differential Ord2 [place]% 10.2 % 02/18/2018 Cbc With Differential Ord2 [...] 1.90 K/ul 02/18/2018 Cbc With Differential Ord2 [place] ABS# 1.3 K/ul 02/18/2018 Cbc With Differential Ord2 Eos ABS# 0.1 K/ul 02/18/2018 Cbc With Differential Ord2 Baso ABS# 0.1 K/ul 02/18/2018 Amylase Ord34 AMYLASE 38 U/L 02/18/2018 Comp Metabolic Scb508 NA 128 mEq/L 02/18/2018 Comp Metabolic Jxt831 K 5.0 mEq/L 02/18/2018 Comp Metabolic Ouh547 CL 94 mEq/L 02/18/2018 Comp Metabolic Tuj302 CO2 22.0 mEq/L 02/18/2018 Comp Metabolic Zps458 ANION GAP 17 02/18/2018 Comp Metabolic Skg905 GLUCOSE 81 mg/dL 02/18/2018 Comp Metabolic Esk217 Creat 1.5 mg/dL 02/18/2018 Comp Metabolic Zvf698 eGFR 48 ml/min/1.73m2 02/18/2018 Comp Metabolic Nkj452 BUN 18 mg/dL 02/18/2018 Comp Metabolic Slc764 B/C Ratio 11.8 Ratio 02/18/2018 Comp Metabolic Usb162 CALCIUM 8.6 mg/dL 02/18/2018 Comp Metabolic Tqu200 ALK PHOS 261 U/L 02/18/2018 Comp Metabolic Zdr482 AST(SGOT) 64 U/L 02/18/2018 Comp Metabolic Wwk363 ALT(SGPT) 21 U/L 02/18/2018 Comp Metabolic Cbs589 BILI T 0.7 mg/dL 02/18/2018 Comp Metabolic Lab452 ALBUMIN 2.9 g/dL 02/18/2018 Comp Metabolic Obl726 TPRO 5.8 g/dL 02/18/2018 Comp Metabolic Srj560 GLOB 3.0 g/dL 02/18/2018 Comp Metabolic Ejo114 A/G Ratio 1.0 Ratio 02/18/2018 Comp Metabolic Ump843 Osmo 258 mOsmo 02/18/2018 Lipase Hyi879 LIPASE 57 U/L 02/18/2018 Lipid Ord30 CHOL 222 mg/dL 04/08/2017 Lipid Ord30 HDL 77.0 mg/dl 04/08/2017 Lipid Ord30 TRIG 79 mg/dL 04/08/2017 Lipid Ord30 LDL 129 mg/dL 04/08/2017 Lipid Ord30 C/HDL 2.9 Ratio 04/08/2017 Hepatic Vpi012 ALBUMIN 4.0 g/dL 04/08/2017 Hepatic Rwd351 TPRO 6.6 g/dL 04/08/2017 Hepatic Iod478 GLOB 2.6 g/dL 04/08/2017 Hepatic Noa912 A/G Ratio 1.5 Ratio 04/08/2017 Hepatic Clo554 ALK PHOS 121 U/L 04/08/2017 Hepatic Etz121 ALT(SGPT) 57 U/L 04/08/2017 Hepatic Vfm982 AST(SGOT) 79 U/L 04/08/2017 Hepatic Wrg056 BILI T 1.1 mg/dL 04/08/2017 Hepatic Vtt257 BILI D 0.3 mg/dL 04/08/2017 Hepatic Sxb515 BILI I 0.8 mg/dL 04/08/2017 Comp Metabolic Ezh443 NA 136 mEq/L 02/12/2017 Comp Metabolic Jwe733 K 4.3 mEq/L 02/12/2017 Comp Metabolic Qgn411 CL 92 mEq/L 02/12/2017 Comp Metabolic Qxj559 CO2 28.0 mEq/L 02/12/2017 Comp Metabolic Elp377 ANION GAP 20 02/12/2017 Comp Metabolic Dmd287 GLUCOSE 77 mg/dL 02/12/2017 Comp Metabolic Qme208 Creat 1.0 mg/dL 02/12/2017 Comp Metabolic Fgr852 eGFR 83 ml/min/1.73m2 02/12/2017 Comp Metabolic Ifm551 BUN 11 mg/dL 02/12/2017 Comp Metabolic Zyl356 B/C Ratio 11.5 Ratio 02/12/2017 Comp Metabolic Yio124 CALCIUM 9.4 mg/dL 02/12/2017 Comp Metabolic Bpw094 ALK PHOS 109 U/L 02/12/2017 Comp Metabolic Pye967 AST(SGOT) 81 U/L 02/12/2017 Comp Metabolic Xex355 ALT(SGPT) 43 U/L 02/12/2017 Comp Metabolic Uqy205 BILI T 0.6 mg/dL 02/12/2017 Comp Metabolic Rbt813 ALBUMIN 3.9 g/dL 02/12/2017 Comp Metabolic Upm064 TPRO 6.8 g/dL 02/12/2017 Comp Metabolic Voi366 GLOB 2.9 g/dL 02/12/2017 Comp Metabolic Osr873 A/G Ratio 1.4 Ratio 02/12/2017 Comp Metabolic Mbm469 Osmo 270 mOsmo 02/12/2017 Urine Culture Ucult Complete NO Growth Day 2 11/30/2016 Urine Culture Ucult Preliminary NO Growth Day 1 11/30/2016 %Hba1C Rnx250 % HbA1c 03825-0 5.5 % 11/11/2016 %Hba1C App699 Gluc Ave 111 mg/dL 11/11/2016 Vitamin D 25 Oh Kgj0641 VITAMIN D, 25 HYDROXY 26.73 ng/mL Comp Metabolic Iam210 NA 132 mEq/L 11/11/2016 Comp Metabolic Hxm852 K 4.1 mEq/L 11/11/2016 Comp Metabolic Fzs727 CL 94 mEq/L 11/11/2016 Comp Metabolic Foe584 CO2 24.0 mEq/L 11/11/2016 Comp Metabolic Hdq439 ANION GAP 18 11/11/2016 Comp Metabolic Aca177 GLUCOSE 103 mg/dL 11/11/2016 Comp Metabolic Sbi048 Creat 1.4 mg/dL 11/11/2016 Comp Metabolic Zki498 eGFR 54 ml/min/1.73m2 11/11/2016 Comp Metabolic Cmd636 BUN 22 mg/dL 11/11/2016 Comp Metabolic Ioq773 B/C Ratio 15.7 Ratio 11/11/2016 Comp Metabolic Hho450 CALCIUM 8.8 mg/dL 11/11/2016 Comp Metabolic Vrw322 ALK PHOS 86 U/L 11/11/2016 Comp Metabolic Rud690 AST(SGOT) 40 U/L 11/11/2016 Comp Metabolic Nhw237 ALT(SGPT) 24 U/L 11/11/2016 Comp Metabolic Zyp629 BILI T 0.4 mg/dL 11/11/2016 Comp Metabolic Zfn827 ALBUMIN 3.9 g/dL 11/11/2016 Comp Metabolic Xeg293 TPRO 6.4 g/dL 11/11/2016 Comp Metabolic Kbh157 GLOB 2.5 g/dL 11/11/2016 Comp Metabolic Zok633 A/G Ratio 1.5 Ratio 11/11/2016 Comp Metabolic Pyq475 Osmo 268 mOsmo 11/11/2016 Cbc With Differential [...] 18.8 % 11/11/2016 Cbc With Differential Ord2 [place]% 13.5 % 11/11/2016 Cbc With Differential Ord2 [...] 1.32 K/ul 11/11/2016 Cbc With Differential Ord2 [place] ABS# 1.0 K/ul 11/11/2016 Cbc With Differential [...] Procedure Codes Date THER/PROPH/DIAG INJ SC/IM CPT-4: 53346 06/10/2017 TRIAMCINOLONE ACET INJ NOS CPT-4: J3301 06/10/2017 TRIAMCINOLONE ACET INJ NOS CPT-4: J3301 11/11/2016 Vital Signs Date Vital 03/19/2018 Blood Pressure 1: 90/58 Code : 8480-6 BMI: 28.4 Code : 12197-2 Heart Rate 1 : 76 bpm Height: 5'11" SpO2: 96% Weight: 203 lbs 5 oz 03/04/2018 Blood Pressure 1: 108/62 Code : 8480-6 BMI: 31.2 Code : 98046-2 Heart Rate 1 : 106 bpm Height: 5'11 " SpO2: 99% Weight: 224 lbs 02/16/2018 Blood Pressure 1: 120/64 Code : 8480-6 BMI: 30.8 Code : 23383-7 Heart Rate 1 : 106 bpm Height: 5'11 " Respiratory Rate: 22 bpm SpO2: 97% Weight: 221 lbs 02/11/2018 Blood Pressure 1: 120/66 Code : 8480-6 BMI: 34.0 Code : 04387-1 Heart Rate 1 : 99 bpm Height: 5'11" Respiratory Rate: 16 bpm SpO2: 98% Weight: 244 lbs 11/24/2017 Blood Pressure 1: 112/64 Code : 8480-6 BMI: 31.8 Code : 42890-2 Heart Rate 1 : 97 bpm Height: 5'11" SpO2: 96% Weight: 228 lbs 06/10/2017 Blood Pressure 1: 92/58 Code : 8480-6 BMI: 30.8 Code : 95927-6 Heart Rate 1 : 53 bpm Height: 5'11" SpO2: 98% Temperature: 36.4 (C) / 97.5 (F) Weight: 221 lbs 01/23/2017 Blood Pressure 1: 148/82 Code : 8480-6 BMI: 29.8 Code : 51374-4 Heart Rate 1 : 97 bpm Height: 5'11" SpO2: 97% Weight: 214 lbs 11/28/2016 Blood Pressure 1: 140/62 Code : 8480-6 BMI: 29.7 Code : 28228-8 Heart Rate 1 : 102 bpm Height: 5'11 " SpO2: 97% Weight: 213 lbs 11/11/2016 Blood Pressure 1: 114/60 Code : 8480-6 Heart Rate 1: 62 bpm SpO2: 96% Weight: 213 lbs 8 oz 10/22/2016 Blood Pressure 1: 136/68 Code : 8480-6 BMI: 28.9 Code : 24694-1 Heart Rate 1 : 56 bpm Height: [...] data Encounters Encounter Performer Location Codes Date ([id number]) [id number] EST. PATIENT, LEVEL IV Diagnosis: Essential (primary) hypertension[ICD10: I10] Diagnosis: Alcoholic cirrhosis of liver with ascites[ICD10: K70.31] Diagnosis: Other pruritus[ICD10: L29.8] Julianne Paulson MD [facility] CPT- 4: 38616 03/19/2018 ([id number]) 39876 EST. PATIENT, LEVEL III Diagnosis: Alcoholic cirrhosis of liver with ascites[ICD10: K70.31] Julianne Paulson MD [facility] CPT-4: 96529 03/04/2018 ([id number]) 27672 EST. 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 PATIENT, LEVEL IV Diagnosis: Generalized abdominal pain[ICD10: R10.84] Diagnosis: Abnormal levels of other serum enzymes[ICD10: R74.8] Diagnosis: Alcoholic cirrhosis of liver with ascites[ICD10: K70.31] Diagnosis: Localized edema[ICD10: R60.0] Julianne Paulson MD [facility] CPT- 4: 83137 02/11/2018 ([id number]) 36932 EST. PATIENT, LEVEL IV Diagnosis: Essential (primary) hypertension[ICD10: I10] Diagnosis: Mastodynia[ICD10: N64.4] Julianen Paulson MD [facility] CPT-4: 45854 11/24/2017 ([id number]) 08609 EST. PATIENT, LEVEL III Diagnosis: Essential (primary) hypertension[ICD10: I10] Diagnosis: Chronic atrial fibrillation[ICD10: I48.2] Diagnosis: Adverse effect of diagnostic agents, initial encounter[ICD10: T50.8X5A] Julianne Paulson MD [facility] CPT-4: 08963 09/2017 76398 EST. PATIENT, LEVEL III Diagnosis: Essential (primary) hypertension[ICD10: I10] Diagnosis: Chronic atrial fibrillation[ICD10: I48.2] Diagnosis: Asymptomatic microscopic hematuria[ICD10: R31.21] Evelia Paulson MD, [facility] CPT-4: 46021 01/23/2017 ([id number]) 37912 EST. PATIENT, LEVEL III Diagnosis: Asymptomatic microscopic hematuria[ICD10: R31.21] Diagnosis: Chronic atrial fibrillation[ICD10: I48.2] [facility] CPT-4: 06666 11/28/2016 ([id number]) 07101 EST. PATIENT, LEVEL IV Diagnosis: Essential (primary) hypertension[ICD10: I10] Diagnosis: Anemia, unspecified[ICD10: D64.9] Diagnosis: Impaired fasting glucose[ICD10: R73.01] Diagnosis: Vitamin D deficiency, unspecified[ICD10: E55.9] Diagnosis: Chronic atrial fibrillation[ICD10: I48.2] Diagnosis: Other allergic rhinitis[ICD10: J30.89] [facility] CPT-4: 09744 11/11/2016 OFFICE VISIT, NEW - LEVEL 3 Diagnosis: Other allergic rhinitis[ICD10: J30.89] Diagnosis: Chronic atrial fibrillation[ICD10: I48.2] [facility] CPT-4: 38737 10/22/2016 Plan of Care Planned Activity Notes Codes Status Date Visit Plan: Hypotension - stop the losartan and decrease dose of cartia from 240mg daily to 120mg daily. Monitor symptoms. Alcoholic Cirrhosis - continue with appts with [facility], monitor symptoms, if abdominal swelling worsens, will need to consider patient to have repeat paracentesis. Pruritus - rx for hydroxyzine 03/19/2018 Patient Education: Patient Medication Summary Completed 03/19/2018 Referral: Dr Avery Referral Completed 03/12/2018 Visit Plan: Ascites - recurrent - pt to have appt with Dr. Dutta at radiology for paracentesis on 03/09/18 in the morning - he is to stop his xarelto until after the paracentesis. He is to see the real estate clerk on . 03/04/2018 Appointment: Julianne Paulson WPtel: [address] [place], [place] [address] (15 min) Moderate 03/04/2018 Patient Education: Patient Medication Summary Completed 03/04/2018 Visit Plan: Liver failure - his CT scan was negative for acute abnormality - Hepatitis C was negative - labs are pending for this week - I have informed pt we will initiat a referral - he would like to go to [place] if possible for the referral, therefore I [...] his behaviors/habits. 02/16/2018 Appointment: Julianne Paulson WPtel: [phone] [facility] [place] (30 min) Complex 02/16/2018 Patient Education: Patient Medication Summary Completed 02/16/2018 Care Plan: Referral Order SNOMED-CT : 524063843 Pending 02/16/2018 Visit Plan: Ascites - CT [...] monitor symptoms. 02/11/2018 Appointment: Julianne Paulson WPtel: [facility] [place] [place] (15 min) Moderate 02/11/2018 Patient Education: Patient Medication Summary Completed 02/11/2018 Patient Education: Patient Medication Summary Completed 02/11/2018 Care Plan: COMPLETE CBC AUTOMATED LOINC : 33866-9 Pending 02/11/2018 Care Plan: CT ABD & PELV W/CONTRAST LOINC : 54464-0 Pending 02/11/2018 Patient Education: Patient Medication Summary [...] be obtained. 11/24/2017 Appointment: Julianne Paulson [facility]Ptel: [phone] [facility] [place] [place] (15 min) Moderate 11/24/2017 Patient Education: Patient Medication Summary Completed 11/24/2017 Care Plan: Bilateral [facility]ICMAMMOGRAPHY[facility]ITAL [facility] : 68439-3 Pending 11/24/2017 Appointment: Julianne Paulson WPtel: [address] [place], [place] [phone] (15 min) Moderate 07/01/2017 Patient Education: Patient [...] the pill 06/10/2017 Appointment: Julianne Paulson WPtel: [facility] (15 min) Moderate 06/10/2017 Patient Education: Patient Medication Summary Completed 06/10/2017 Appointment: Evelia Balderrama WPtel: [address] [place], [place] [phone] (30 min) Complex 04/24/2017 Referral: Juan Rothman WPtel: [address] [facility] Referral Initiated 02/10/2017 Visit Plan: Hypertension - [...] or concerns. 01/23/2017 Appointment: Evelia Balderrama WPtel: [facility] (30 min) Complex 01/23/2017 Patient Education: Patient Medication Summary Completed 01/23/2017 Care Plan: Referral Order SNOMED-CT : 824225238 Cancelled 01/23/2017 Visit Plan: Afib-not rate controlled today-monitor blood pressure and pulse at home x 1 week and call with readings in 1 week-refer to cardiology-he has not seen a social media senior associate since afib diagnosis six years ago. Hematuria-suspect due to pradaxa-no longer visible but still microscopic- culture urine-patient to call if blood returns-no changes in medication for now 11/28/2016 Appointment: Eva De La Cruz WPtel: [address] [place] [address] (30 min) Complex 11/28/2016 Patient Education: Patient [...] glucose-check Hgb A1C Vitamin D def-check level Ejrr-hslszxn-njoc controlled-no change in medications 11/11/2016 Appointment: Eva De La Cruz WPtel: [address] [place] [address] (30 min) Complex 11/11/2016 Patient Education: Patient [...] becoming uncontrolled. 10/22/2016 Appointment: Evelia Balderrama WPtel: [address] [place] [address] New Patient 10/22/2016 Patient Education: Patient Medication Summary Completed 10/22/2016 Referral: Juan Rothman WPtel: [address] [place] [place] Referral Initiated Referral: Dr Avery Referral Appointment [...] Alcoholic Cirrhosis - continue with appts with [facility], monitor symptoms, if abdominal swelling worsens, will [...] the paracentesis. He is to see the real estate clerk on 03/12/18. . Hypertension - well controlled [...] week-refer to cardiology-he has not seen a social media senior associate since afib diagnosis six years ago. Hematuria-suspect [...] STOP BENAZEPRILHCTZ to see if cough resolves Astqqljxm-qzwkd-mnffddw injection today in the office Hx elevated fasting glucose-check Hgb A1C Vitamin D def-check level Oshu-cmwvvod-ubtl controlled-no change in medications . Liver failure - his CT scan was negative for acute abnormality - Hepatitis C was negative - labs are pending for this week - I have informed pt we will initiat a referral - he would like to go to [place] if possible for the referral, therefore I [...]
--- OUTSIDE RECORDS SUMMARY | 2018-06-21 09:56 | XMS REPORT | CCD ---
Author Author Evelia Balderrama MD, [facility] Address [address] [place] [address] Phone Care Team Providers Care Billet Bed Operator Name Role Phone PP Unavailable CCM Unavailable Summary Purpose Interface Exchange Insurance Providers Payer name Policy type / Coverage type Covered democrat ID Effective Begin Date Effective End Date WPS Medicare Part B Medicare Part B [id number] Unknown [employer] [place] Medicare Part B [id number] Unknown Family history Father Diagnosis Age At Onset Cancer Unknown Diabetes mellitus Type 1 Unknown Stroke Unknown Mother Diagnosis Age At Onset advanced age Unknown Sister Diagnosis Age At Onset Migraines Unknown Asthma Unknown Social History Social History Element Codes Description Effective Dates Tobacco history SNOMED CT: 2194513 Quit over 10 years ago occasionally smokes pot 02/16/2018 Marital status Unknown Vashti Valles 10/22/2016 Number of children Unknown 0 10/22/2016 Employment Unknown Retired 10/22/2016 Alcohol history Unknown occasionally drinks alcohol 10/22/2016 Frequency of drinks SNOMED CT: 059782714 10 drinks per week 10/22/2016 Has the patient ever used illegal drugs? Unknown Currently uses illegal drugs 10/22/2016 Allergies, Adverse Reactions, Alerts Substance Reaction Codes Entered Date Inactivated Date Status Naprosyn RxNorm: 7258 10/22/2016 No Inactive Date Active Past Medical History Illness Codes Condition Status Onset Date Resolved Date Alcoholic cirrhosis of liver with ascites ICD-9: 571.2 ICD-10: K70.31 Active 02/11/2018 Unknown 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 coma ICD-9: 572.8 ICD-10: K70.40 Active 02/16/2018 Unknown Hypo-osmolality and hyponatremia ICD-9: 276.1 ICD-10: E87.1 Active 02/16/2018 Unknown Other specified abnormal findings of blood chemistry ICD-9: 790.99 ICD-10: R79.89 Active 02/16/2018 Unknown Abnormal levels of other serum enzymes ICD-9: 790.5 ICD-10: R74.8 Active 02/11/2018 Unknown Essential (primary) hypertension ICD-9: 401.1 ICD-10: I10 Active 11/11/2016 Unknown Generalized abdominal pain ICD-9: 789.07 ICD-10: [...] ascites ICD-9: 571.2 ICD-10: K70.31 02/11/2018 Active 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 coma ICD-9: 572.8 ICD-10: K70.40 02/16/2018 Active Hypo-osmolality and hyponatremia ICD-9: 276.1 ICD-10: E87.1 02/16/2018 Active Other specified abnormal findings of blood chemistry ICD-9: 790.99 ICD-10: R79.89 02/16/2018 Active Abnormal levels of other serum enzymes ICD-9: 790.5 ICD-10: R74.8 02/11/2018 Active Essential (primary) hypertension ICD-9: 401.1 ICD-10: I10 11/11/2016 Active Generalized abdominal pain ICD-9: 789.07 ICD-10: [...] Start Date Stop Date Status Fill Instructions Lasix 20 mg tablet RxNorm: 291100 1 Tablet(s) PO BID 201702/15/2018 Inactive Xarelto 20 mg tablet RxNorm: 5579447 1 Tablet(s) PO daily -Managed by Dr. Hurley 02/11/2018 11/07/2018 Active potassium chloride ER 10 mEq capsule,extended release RxNorm: 164764 1 Capsule(s) PO daily 02/11/2018 02/15/2018 Inactive Lasix 20 mg tablet RxNorm: 843782 TAKE 1 TABLET BY MOUTH EVERY MORNING NEEDED FOR EDEMA 07/17/2017 10/14/2017 Inactive losartan 50 mg-hydrochlorothiazide 12.5 mg tablet RxNorm: 477472 1 Tablet(s) PO daily 06/10/2017 10/07/2017 Inactive Phenergan-Codeine 6.25 mg-10 mg/5 mL syrup RxNorm: 330655 5-10 Milliliter(s) PO Q6 as needed cough 06/10/2017 No Stop Date Active Kenalog 40 mg/mL suspension for injection RxNorm: 3457325 1 Milliliter(s) Inj 06/10/2017 06/10/2017 Inactive atenolol 50 mg tablet RxNorm: 945765 1 Tablet(s) PO daily 201711/25/2017 Inactive atenolol 50 mg tablet RxNorm: 968995 1 Tablet(s) PO daily 201605/29/2017 Inactive simvastatin 20 mg tablet RxNorm: 602157 TAKE 1 TABLET BY MOUTH EVERY NIGHT AT BEDTIME 02/24/2017 08/22/2017 Inactive Zyrtec 10 mg tablet RxNorm: 0778299 1 TABLET(S) PO DAILY 02/1708/15/2017 Inactive Cartia XT 240 mg capsule,extended release RxNorm: 919866 1 Capsule(s) PO daily 01/20/2017 07/18/2017 Inactive diltiazem 120 mg tablet RxNorm: 634155 1 Tablet(s) PO QHS 11/2606/09/2017 Inactive Vitamin D2 50,000 unit capsule RxNorm: 680007 1 Capsule(s) PO QW 11/15/2016 11/14/2016 Inactive take with vit d 2000 units daily Vitamin D2 50,000 unit capsule RxNorm: 717962 1 Capsule(s) PO QW 11/15/2016 02/06/2017 Inactive take with vit d 2000 units daily Kenalog 40 mg/mL suspension for injection RxNorm: 2270905 1 Milliliter(s) Inj 11/11/2016 11/11/2016 Inactive Pradaxa 150 mg capsule RxNorm: 4410344 TAKE ONE CAPSULE BY MOUTH TWICE DAILY 11/11/2016 06/09/2017 Inactive benazepril 20 mg-hydrochlorothiazide 12.5 mg tablet RxNorm: 853854 1 Tablet(s) PO daily 11/05/2016 06/09/2017 Inactive benazepril 20 mg-hydrochlorothiazide 12.5 mg tablet RxNorm: 089739 1 Tablet(s) PO daily 11/05/2016 11/04/2016 Inactive simvastatin 20 mg tablet RxNorm: 346657 TAKE 1 TABLET BY MOUTH EVERY NIGHT AT BEDTIME 10/24/2016 01/21/2017 Inactive Zyrtec 10 mg tablet RxNorm: 2715410 1 Tablet(s) PO daily 10/2211/20/2016 Inactive Pradaxa 150 mg capsule RxNorm: 3648305 1 Capsule(s) PO BID No Start Date 11/10/2016 Inactive Lasix 20 mg tablet RxNorm: 572398 1 Tablet(s) PO daily as needed No Start Date 07/16/2017 Inactive aspirin 81 mg chewable tablet RxNorm: 384037 1 Tablet(s) PO daily No Start Date 01/20/2017 Inactive Phenergan-Codeine 6.25 mg-10 mg/5 mL syrup RxNorm: 755362 5-10 Milliliter(s) PO Q6 as needed cough No Start Date 2017 Inactive diltiazem 120 mg tablet RxNorm: 389661 1 Tablet(s) PO daily No Start Date 11/25/2016 Inactive atenolol 50 mg tablet RxNorm: 358895 1 Tablet(s) PO daily No Start Date 03/16/2017 Inactive Xarelto 20 mg tablet RxNorm: 9603600 1 Tablet(s) PO daily -Managed by Dr. Hurley No Start Date 02/10/2018 Inactive Cartia XT 240 mg capsule,extended release RxNorm: 035678 1 Capsule(s) PO daily No Start Date 01/19/2017 Inactive simvastatin 20 mg tablet RxNorm: 425346 1 Tablet(s) PO QHS No Start Date 10/23/2016 Inactive Medication Administered Medication Codes Instructions Start Date Status Kenalog 40 mg/mL suspension for injection RxNorm: 8849926 1Milliliter 06/10/2017 No longer Active Kenalog 40 mg/mL suspension for injection RxNorm: 6351547 1Milliliter 11/11/2016 No longer Active Immunizations No Immunization data Assessments Condition Codes Effective Dates Alcoholic cirrhosis of liver with ascites ICD-10: K70.31 ICD-9: 571.2 03/04/2018 Hypo-osmolality and hyponatremia ICD-10: E87.1 ICD-9: 276.1 02/16/2018 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 coma ICD-10: K70.40 ICD-9: 572.8 02/16/2018 Other specified abnormal findings of blood chemistry ICD-10 : R79.89 ICD-9: 790.99 02/16/2018 Essential (primary) hypertension ICD-10: I10 ICD-9: 401.1 02/11/2018 Localized edema ICD-10: R60.0 ICD-9: 782.3 02/11/2018 [...] For Visit Effective Dates Notes weight gain/obesity 03/04/2018 weight gain/obesity 02/16/2018 weight [...] 27.4 pg 02/18/2018 Cbc With Differential Ord2 [place]% 10.2 % 02/18/2018 Cbc With Differential Ord2 [...] 1.90 K/ul 02/18/2018 Cbc With Differential Ord2 [place] ABS# 1.3 K/ul 02/18/2018 Cbc With Differential Ord2 Eos ABS# 0.1 K/ul 02/18/2018 Cbc With Differential Ord2 Baso ABS# 0.1 K/ul 02/18/2018 Amylase Ord34 AMYLASE 38 U/L 02/18/2018 Comp Metabolic Rik595 NA 128 mEq/L 02/18/2018 Comp Metabolic Mvw218 K 5.0 mEq/L 02/18/2018 Comp Metabolic Ptb814 CL 94 mEq/L 02/18/2018 Comp Metabolic Poj320 CO2 22.0 mEq/L 02/18/2018 Comp Metabolic Btz654 ANION GAP 17 02/18/2018 Comp Metabolic Zmt129 GLUCOSE 81 mg/dL 02/18/2018 Comp Metabolic Arx381 Creat 1.5 mg/dL 02/18/2018 Comp Metabolic Ykx188 eGFR 48 ml/min/1.73m2 02/18/2018 Comp Metabolic Vwh144 BUN 18 mg/dL 02/18/2018 Comp Metabolic Ztj155 B/C Ratio 11.8 Ratio 02/18/2018 Comp Metabolic Kpo814 CALCIUM 8.6 mg/dL 02/18/2018 Comp Metabolic Qda975 ALK PHOS 261 U/L 02/18/2018 Comp Metabolic Qxw147 AST(SGOT) 64 U/L 02/18/2018 Comp Metabolic Adt167 ALT(SGPT) 21 U/L 02/18/2018 Comp Metabolic Url145 BILI T 0.7 mg/dL 02/18/2018 Comp Metabolic Xzb089 ALBUMIN 2.9 g/dL 02/18/2018 Comp Metabolic Gee367 TPRO 5.8 g/dL 02/18/2018 Comp Metabolic Wzz688 GLOB 3.0 g/dL 02/18/2018 Comp Metabolic Owd161 A/G Ratio 1.0 Ratio 02/18/2018 Comp Metabolic Jfq847 Osmo 258 mOsmo 02/18/2018 Lipase Fxg216 LIPASE 57 U/L 02/18/2018 Lipid Ord30 CHOL 222 mg/dL 04/08/2017 Lipid Ord30 HDL 77.0 mg/dl 04/08/2017 Lipid Ord30 TRIG 79 mg/dL 04/08/2017 Lipid Ord30 LDL 129 mg/dL 04/08/2017 Lipid Ord30 C/HDL 2.9 Ratio 04/08/2017 Hepatic Xls658 ALBUMIN 4.0 g/dL 04/08/2017 Hepatic Fzr102 TPRO 6.6 g/dL 04/08/2017 Hepatic Cee419 GLOB 2.6 g/dL 04/08/2017 Hepatic Xuv843 A/G Ratio 1.5 Ratio 04/08/2017 Hepatic Tbi467 ALK PHOS 121 U/L 04/08/2017 Hepatic Yfg889 ALT(SGPT) 57 U/L 04/08/2017 Hepatic Qux406 AST(SGOT) 79 U/L 04/08/2017 Hepatic Txo772 BILI T 1.1 mg/dL 04/08/2017 Hepatic Efc390 BILI D 0.3 mg/dL 04/08/2017 Hepatic Yxi591 BILI I 0.8 mg/dL 04/08/2017 Comp Metabolic Pei587 NA 136 mEq/L 02/12/2017 Comp Metabolic Gzr556 K 4.3 mEq/L 02/12/2017 Comp Metabolic Pqd525 CL 92 mEq/L 02/12/2017 Comp Metabolic Tvj094 CO2 28.0 mEq/L 02/12/2017 Comp Metabolic Cor722 ANION GAP 20 02/12/2017 Comp Metabolic Gzm562 GLUCOSE 77 mg/dL 02/12/2017 Comp Metabolic Exc742 Creat 1.0 mg/dL 02/12/2017 Comp Metabolic Gbb539 eGFR 83 ml/min/1.73m2 02/12/2017 Comp Metabolic Lin055 BUN 11 mg/dL 02/12/2017 Comp Metabolic Kxk614 B/C Ratio 11.5 Ratio 02/12/2017 Comp Metabolic Wfs125 CALCIUM 9.4 mg/dL 02/12/2017 Comp Metabolic Ges011 ALK PHOS 109 U/L 02/12/2017 Comp Metabolic Plt823 AST(SGOT) 81 U/L 02/12/2017 Comp Metabolic Jia205 ALT(SGPT) 43 U/L 02/12/2017 Comp Metabolic Rsa018 BILI T 0.6 mg/dL 02/12/2017 Comp Metabolic Txb348 ALBUMIN 3.9 g/dL 02/12/2017 Comp Metabolic Wsf997 TPRO 6.8 g/dL 02/12/2017 Comp Metabolic Jla127 GLOB 2.9 g/dL 02/12/2017 Comp Metabolic Zma580 A/G Ratio 1.4 Ratio 02/12/2017 Comp Metabolic Wax242 Osmo 270 mOsmo 02/12/2017 Urine Culture Ucult Complete NO Growth Day 2 11/30/2016 Urine Culture Ucult Preliminary NO Growth Day 1 11/30/2016 %Hba1C Auq069 % HbA1c 21936-9 5.5 % 11/11/2016 %Hba1C Kei507 Gluc Ave 111 mg/dL 11/11/2016 Vitamin D 25 Oh Ohp9279 VITAMIN D, 25 HYDROXY 26.73 ng/mL Comp Metabolic Jyt102 NA 132 mEq/L 11/11/2016 Comp Metabolic Mgq610 K 4.1 mEq/L 11/11/2016 Comp Metabolic Uqk235 CL 94 mEq/L 11/11/2016 Comp Metabolic Htr493 CO2 24.0 mEq/L 11/11/2016 Comp Metabolic Djw247 ANION GAP 18 11/11/2016 Comp Metabolic Vmb521 GLUCOSE 103 mg/dL 11/11/2016 Comp Metabolic Zkf205 Creat 1.4 mg/dL 11/11/2016 Comp Metabolic Flx954 eGFR 54 ml/min/1.73m2 11/11/2016 Comp Metabolic Fid654 BUN 22 mg/dL 11/11/2016 Comp Metabolic Fpd813 B/C Ratio 15.7 Ratio 11/11/2016 Comp Metabolic Ryz422 CALCIUM 8.8 mg/dL 11/11/2016 Comp Metabolic Swi080 ALK PHOS 86 U/L 11/11/2016 Comp Metabolic Iqb708 AST(SGOT) 40 U/L 11/11/2016 Comp Metabolic Gvi787 ALT(SGPT) 24 U/L 11/11/2016 Comp Metabolic Grd419 BILI T 0.4 mg/dL 11/11/2016 Comp Metabolic Srx475 ALBUMIN 3.9 g/dL 11/11/2016 Comp Metabolic Vho325 TPRO 6.4 g/dL 11/11/2016 Comp Metabolic Urx166 GLOB 2.5 g/dL 11/11/2016 Comp Metabolic Hfy934 A/G Ratio 1.5 Ratio 11/11/2016 Comp Metabolic Hlq539 Osmo 268 mOsmo 11/11/2016 Cbc With Differential [...] 30.8 pg 11/11/2016 Cbc With Differential Ord2 [place]% 13.5 % 11/11/2016 Cbc With Differential Ord2 [...] 1.32 K/ul 11/11/2016 Cbc With Differential Ord2 [place] ABS# 1.0 K/ul 11/11/2016 Cbc With Differential Ord2 Eos ABS# 0.2 K/ul 11/11/2016 Cbc With Differential Ord2 Baso ABS# 0.0 K/ul 11/11/2016 Review of Systems System Result Effective Dates Constitutional recent illness 03/04/2018 Constitutional No chills [...] Procedure Codes Date THER/PROPH/DIAG INJ SC/IM CPT-4: 37894 06/10/2017 TRIAMCINOLONE ACET INJ NOS CPT-4: J3301 06/10/2017 TRIAMCINOLONE ACET INJ NOS CPT-4: J3301 11/11/2016 Vital Signs Date Vital 03/04/2018 Blood Pressure 1: 108/62 Code : 8480-6 BMI: 31.2 Code : 88296-6 Heart Rate 1 : 106 bpm Height: 5'11 " SpO2: 99% Weight: 224 lbs 02/16/2018 Blood Pressure 1: 120/64 Code : 8480-6 BMI: 30.8 Code : 23337-7 Heart Rate 1 : 106 bpm Height: 5'11 " Respiratory Rate: 22 bpm SpO2: 97% Weight: 221 lbs 02/11/2018 Blood Pressure 1: 120/66 Code : 8480-6 BMI: 34.0 Code : 83322-0 Heart Rate 1 : 99 bpm Height: 5'11" Respiratory Rate: 16 bpm SpO2: 98% Weight: 244 lbs 11/24/2017 Blood Pressure 1: 112/64 Code : 8480-6 BMI: 31.8 Code : 88032-6 Heart Rate 1 : 97 bpm Height: 5'11" SpO2: 96% Weight: 228 lbs 06/10/2017 Blood Pressure 1: 92/58 Code : 8480-6 BMI: 30.8 Code : 67614-9 Heart Rate 1 : 53 bpm Height: 5'11" SpO2: 98% Temperature: 36.4 (C) / 97.5 (F) Weight: 221 lbs 01/23/2017 Blood Pressure 1: 148/82 Code : 8480-6 BMI: 29.8 Code : 06291-2 Heart Rate 1 : 97 bpm Height: 5'11" SpO2: 97% Weight: 214 lbs 11/28/2016 Blood Pressure 1: 140/62 Code : 8480-6 BMI: 29.7 Code : 72778-9 Heart Rate 1 : 102 bpm Height: 5'11 " SpO2: 97% Weight: 213 lbs 11/11/2016 Blood Pressure 1: 114/60 Code : 8480-6 Heart Rate 1: 62 bpm SpO2: 96% Weight: 213 lbs 8 oz 10/22/2016 Blood Pressure 1: 136/68 Code : 8480-6 BMI: 28.9 Code : 98585-6 Heart Rate 1 : 56 bpm Height: 5'11" SpO2: 98% Weight: 207 lbs Functional Status No Functional Status data History of Present Illness Symptom Name Status Result Effective Date Notes weight gain/obesity Location globally 03/04/2018 None weight [...] data Encounters Encounter Performer Location Codes Date ([id number]) 51989 EST. PATIENT, LEVEL III Diagnosis: Alcoholic cirrhosis of liver with ascites[ICD10: K70.31] [facility] CPT-4: 71397 03/04/2018 ([id number]) 56521 EST. PATIENT, LEVEL III Diagnosis: Other specified abnormal findings of blood chemistry[ICD10: R79.89] Diagnosis: 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 coma[ICD10: K70.40] Diagnosis: Hypo-osmolality and hyponatremia[ICD10: E87.1] Julianne Paulson MD, [facility] CPT-4: 43755 02/16/2018 ([id number]) 06111 EST. PATIENT, LEVEL IV Diagnosis: Generalized abdominal pain[ICD10: R10.84] Diagnosis: Abnormal levels of other serum enzymes[ICD10: R74.8] Diagnosis: Alcoholic cirrhosis of liver with ascites[ICD10: K70.31] Diagnosis: Localized edema[ICD10: R60.0] Julianne Paulson MD, [facility] CPT- 4: 48744 02/11/2018 ([id number]) 39391 EST. PATIENT, LEVEL IV Diagnosis: Essential (primary) hypertension[ICD10: I10] Diagnosis: Mastodynia[ICD10: N64.4] Julianne Paulson MD, [facility] CPT-4: 31166 11/24/2017 ([id number]) 57762 EST. PATIENT, LEVEL III Diagnosis: Essential (primary) hypertension[ICD10: I10] Diagnosis: Chronic atrial fibrillation[ICD10: I48.2] Diagnosis: Adverse effect of diagnostic agents, initial encounter[ICD10: T50.8X5A] Julianne Paulson MD, [facility] CPT-4: 74104 09/2017 [id number] EST. PATIENT, LEVEL III Diagnosis: Essential (primary) hypertension[ICD10: I10] Diagnosis: Chronic atrial fibrillation[ICD10: I48.2] Diagnosis: Asymptomatic microscopic hematuria[ICD10: R31.21] Evelia Paulson MD, [facility] CPT-4: 77326 01/23/2017 ([id number]) 07243 EST. PATIENT, LEVEL III Diagnosis: Asymptomatic microscopic hematuria[ICD10: R31.21] Diagnosis: Chronic atrial fibrillation[ICD10: I48.2] Eva Paulson MD, [facility] CPT-4: 05694 11/28/2016 ([id number]) 23528 EST. PATIENT, LEVEL IV Diagnosis: Essential (primary) hypertension[ICD10: I10] Diagnosis: Anemia, unspecified[ICD10: D64.9] Diagnosis: Impaired fasting glucose[ICD10: R73.01] Diagnosis: Vitamin D deficiency, unspecified[ICD10: E55.9] Diagnosis: Chronic atrial fibrillation[ICD10: I48.2] Diagnosis: Other allergic rhinitis[ICD10: J30.89] [facility] CPT-4: 29860 11/11/2016 OFFICE VISIT, NEW - LEVEL 3 Diagnosis: Other allergic rhinitis[ICD10: J30.89] Diagnosis: Chronic atrial fibrillation[ICD10: I48.2] [facility] CPT-4: 12436 10/22/2016 Plan of Care Planned Activity Notes Codes Status Date Referral: Dr Avery Referral Completed 03/12/2018 Visit Plan: Ascites - recurrent - pt to have appt with Dr. Dutta at radiology for paracentesis on 03/09/18 in the morning - he is to stop his xarelto until after the paracentesis. He is to see the final touch up painter on . 03/04/2018 Patient Education: Patient Medication Summary Completed 03/04/2018 Visit Plan: Liver failure - his CT scan was negative for acute abnormality - Hepatitis C was negative - labs are pending for this week - I have informed pt we will initiat a referral - he would like to go to [place] if possible for the referral, therefore I [...] his behaviors/habits. 02/16/2018 Appointment: Julianne Paulson WPtel: [address] [place], [place] [phone] (30 min) [facility] 02/16/2018 Patient Education: Patient Medication Summary Completed 02/16/2018 Care Plan: Referral Order SNOMED-CT : 530465637 Pending 02/16/2018 Visit Plan: Ascites - CT [...] monitor symptoms. 02/11/2018 Appointment: Julian[facility]Ptel[facility] ([facility] Mod[facility] 02/11/2018 Patient Education: Patient Medication Summary Completed 02/11/2018 Patient Education: Patient Medication Summary Completed 02/11/2018 Care Plan: COMPLETE CBC AUTOMATED LOINC : 83621-1 Pending 02/11/2018 Care Plan: CT ABD & PELV W/CONTRAST LOINC : 65126-1 Pending 02/11/2018 Patient Education: Patient Medication Summary [...] be obtained. 11/24/2017 Appointment: Julian[facility] Paulson [facility]Ptel[facility] ([facility] min) Moderate 11/24/2017 Patient Education: Patient Medication Summary Completed 11/24/2017 Care Plan: Bilateral DIAGNOSTICMAMMOGRAPHYDIGITAL LOINC : 71677-0 Pending 11/24/2017 Appointment: Julianne Paulson WPtel: [address] [place] [phone] (15 min) Moderate 07/01/2017 Patient Education: Patient [...] the pill 06/10/2017 Appointment: Julianne Paulson WPtel: [address] [place] [phone] [place] (15 min) Moderate 06/10/2017 Patient Education: Patient Medication Summary Completed 06/10/2017 Appointment: Evelia Balderrama WPtel: [address] [place], [place] [phone] [place] (30 min) Complex 04/24/2017 Referral: Juan Rothman WPtel: [phone] [id number] Referral Initiated 02/10/2017 Visit Plan: Hypertension - [...] or concerns. 01/23/2017 Appointment: Evel[facility] Balderrama WPtel[facility] (30 min) Complex 01/23/2017 Patient Education: Patient Medication Summary Completed 01/23/2017 Care Plan: Referral Order SNOMED-CT : [id number] Cancelled 01/23/2017 Visit Plan: Afib-not rate controlled today-monitor blood pressure and pulse at home x 1 week and call with readings in 1 week-refer to cardiology-he has not seen a negative restorer since afib diagnosis six years ago. Hematuria-suspect due to pradaxa-no longer visible but still microscopic- culture urine-patient to call if blood returns-no changes in medication for now 11/28/2016 Appointment: Eva De La Cruz WPtel: [phone] (30 min) Complex 11/28/2016 Patient Education: Patient [...] glucose-check Hgb A1C Vitamin D def-check level Bife-xppxsno-rsex controlled-no change in medications 11/11/2016 Appointment: Eva De La Cruzl: [facility]5 [phone] (30 min) Complex 11/11/2016 Patient Education: Patient [...] becoming uncontrolled. 10/22/2016 Appointment: Evelia Balderrama WPtel: [address] [place], [place] [phone] New Patient 10/22/2016 Patient Education: Patient Medication Summary Completed 10/22/2016 Referral: Juan Rothman WPtel: [phone] [facility] Referral Initiated Referral: Dr Avery [...] pain - bilateral mammograms to be obtained. stop the xarelto - do not take until 03/10/18 . Ascites - recurrent - pt to have appt with Dr. Dutta at radiology for paracentesis on 03/09/18 in the morning - he is to stop his xarelto until after the paracentesis. He is to see the final touch up painter on 03/12/18. . Hypertension - well controlled [...] week-refer to cardiology-he has not seen a negative restorer since afib diagnosis six years ago. Hematuria-suspect [...] STOP BENAZEPRILHCTZ to see if cough resolves Bqueeqoth-nrqpw-axvpmuv injection today in the office Hx elevated fasting glucose-check Hgb A1C Vitamin D def-check level Ddkr-eiuardn-iwej controlled-no change in medications . Liver failure - his CT scan was negative for acute abnormality - Hepatitis C was negative - labs are pending for this week - I have informed pt we will initiat a referral - he would like to go to [place] if possible for the referral, therefore I [...]
--- OUTSIDE RECORDS SUMMARY | 2018-06-21 09:58 | XMS REPORT | CCD ---
Author Author Evelia Balderrama MD, [facility] Address [address] [place] [address] Phone Care Team Providers Care Sales Representative Public Utilities Name Role Phone PP Unavailable CCM Unavailable Summary Purpose Interface Exchange Insurance Providers Payer name Policy type / Coverage type Covered republican ID Effective Begin Date Effective End Date WPS Medicare Part B Medicare Part B [id number] Unknown [employer] [place] Medicare Part B [id number] Unknown Family history Father Diagnosis Age At Onset Cancer Unknown Diabetes mellitus Type 1 Unknown Stroke Unknown Mother Diagnosis Age At Onset advanced age Unknown Sister Diagnosis Age At Onset Migraines Unknown Asthma Unknown Social History Social History Element Codes Description Effective Dates Tobacco history SNOMED CT: 5176237 Quit over 10 years ago occasionally smokes pot 02/16/2018 Marital status Unknown Vashti Valles 10/22/2016 Number of children Unknown 0 10/22/2016 Employment Unknown Retired 10/22/2016 Alcohol history Unknown occasionally drinks alcohol 10/22/2016 Frequency of drinks SNOMED CT: 074456864 10 drinks per week 10/22/2016 Has the patient ever used illegal drugs? Unknown Currently uses illegal drugs 10/22/2016 Allergies, Adverse Reactions, Alerts Substance Reaction Codes Entered Date Inactivated Date Status Naprosyn RxNorm: 7258 10/22/2016 No Inactive Date Active Past Medical History Illness Codes Condition Status Onset Date Resolved Date 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 coma ICD-9: 572.8 ICD-10: K70.40 Active 02/16/2018 Unknown Hypo-osmolality and hyponatremia ICD-9: 276.1 ICD-10: E87.1 Active 02/16/2018 Unknown Other specified abnormal findings of blood chemistry ICD-9: 790.99 ICD-10: R79.89 Active 02/16/2018 Unknown Abnormal levels of other serum enzymes ICD-9: 790.5 ICD-10: R74.8 Active 02/11/2018 Unknown Alcoholic cirrhosis of liver with ascites ICD-9: [...] Condition Codes Effective Dates Condition Status 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 coma ICD-9: 572.8 ICD-10: K70.40 02/16/2018 Active Hypo-osmolality and hyponatremia ICD-9: 276.1 ICD-10: E87.1 02/16/2018 Active Other specified abnormal findings of blood chemistry ICD-9: 790.99 ICD-10: R79.89 02/16/2018 Active Abnormal levels of other serum enzymes ICD-9: 790.5 ICD-10: R74.8 02/11/2018 Active Alcoholic cirrhosis of liver with ascites ICD-9: [...] Fill Instructions Lasix 20 mg tablet RxNorm: 218821 1 Tablet(s) PO BID 201702/15/2018 Inactive Xarelto 20 mg tablet RxNorm: 8919476 1 Tablet(s) PO daily -Managed by Dr. Hurley 02/11/2018 11/07/2018 Active potassium chloride ER 10 mEq capsule,extended release RxNorm: 838492 1 Capsule(s) PO daily 02/11/2018 02/15/2018 Inactive Lasix 20 mg tablet RxNorm: 926853 TAKE 1 TABLET BY MOUTH EVERY MORNING NEEDED FOR EDEMA 07/17/2017 10/14/2017 Inactive losartan 50 mg-hydrochlorothiazide 12.5 mg tablet RxNorm: 371126 1 Tablet(s) PO daily 06/10/2017 10/07/2017 Inactive Phenergan-Codeine 6.25 mg-10 mg/5 mL syrup RxNorm: 428308 5-10 Milliliter(s) PO Q6 as needed cough 06/10/2017 No Stop Date Active Kenalog 40 mg/mL suspension for injection RxNorm: 4213136 1 Milliliter(s) Inj 06/10/2017 06/10/2017 Inactive atenolol 50 mg tablet RxNorm: 232014 1 Tablet(s) PO daily 201711/25/2017 Inactive atenolol 50 mg tablet RxNorm: 789935 1 Tablet(s) PO daily 201605/29/2017 Inactive simvastatin 20 mg tablet RxNorm: 896442 TAKE 1 TABLET BY MOUTH EVERY NIGHT AT BEDTIME 02/24/2017 08/22/2017 Inactive Zyrtec 10 mg tablet RxNorm: 7322613 1 TABLET(S) PO DAILY 02/1708/15/2017 Inactive Cartia XT 240 mg capsule,extended release RxNorm: 594240 1 Capsule(s) PO daily 01/20/2017 07/18/2017 Inactive diltiazem 120 mg tablet RxNorm: 719350 1 Tablet(s) PO QHS 11/2606/09/2017 Inactive Vitamin D2 50,000 unit capsule RxNorm: 947245 1 Capsule(s) PO QW 11/15/2016 11/14/2016 Inactive take with vit d 2000 units daily Vitamin D2 50,000 unit capsule RxNorm: 913734 1 Capsule(s) PO QW 11/15/2016 02/06/2017 Inactive take with vit d 2000 units daily Kenalog 40 mg/mL suspension for injection RxNorm: 7378216 1 Milliliter(s) Inj 11/11/2016 11/11/2016 Inactive Pradaxa 150 mg capsule RxNorm: 3952142 TAKE ONE CAPSULE BY MOUTH TWICE DAILY 11/11/2016 06/09/2017 Inactive benazepril 20 mg-hydrochlorothiazide 12.5 mg tablet RxNorm: 996652 1 Tablet(s) PO daily 11/05/2016 06/09/2017 Inactive benazepril 20 mg-hydrochlorothiazide 12.5 mg tablet RxNorm: 921547 1 Tablet(s) PO daily 11/05/2016 11/04/2016 Inactive simvastatin 20 mg tablet RxNorm: 699758 TAKE 1 TABLET BY MOUTH EVERY NIGHT AT BEDTIME 10/24/2016 01/21/2017 Inactive Zyrtec 10 mg tablet RxNorm: 2715367 1 Tablet(s) PO daily 10/2211/20/2016 Inactive Pradaxa 150 mg capsule RxNorm: 0977772 1 Capsule(s) PO BID No Start Date 11/10/2016 Inactive Lasix 20 mg tablet RxNorm: 501341 1 Tablet(s) PO daily as needed No Start Date 07/16/2017 Inactive aspirin 81 mg chewable tablet RxNorm: 027567 1 Tablet(s) PO daily No Start Date 01/20/2017 Inactive Phenergan-Codeine 6.25 mg-10 mg/5 mL syrup RxNorm: 183612 5-10 Milliliter(s) PO Q6 as needed cough No Start Date 2017 Inactive diltiazem 120 mg tablet RxNorm: 159322 1 Tablet(s) PO daily No Start Date 11/25/2016 Inactive atenolol 50 mg tablet RxNorm: 657459 1 Tablet(s) PO daily No Start Date 03/16/2017 Inactive Xarelto 20 mg tablet RxNorm: 6932090 1 Tablet(s) PO daily -Managed by Dr. Hurley No Start Date 02/10/2018 Inactive Cartia XT 240 mg capsule,extended release RxNorm: 044772 1 Capsule(s) PO daily No Start Date 01/19/2017 Inactive simvastatin 20 mg tablet RxNorm: 880588 1 Tablet(s) PO QHS No Start Date 10/23/2016 Inactive Medication Administered Medication Codes Instructions Start Date Status Kenalog 40 mg/mL suspension for injection RxNorm: 5216676 1Milliliter 06/10/2017 No longer Active Kenalog 40 mg/mL suspension for injection RxNorm: 6205954 1Milliliter 11/11/2016 No longer Active Immunizations No Immunization data Assessments Condition Codes Effective Dates Hypo-osmolality and hyponatremia ICD-10: E87.1 ICD-9: 276.1 02/16/2018 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 coma ICD-10: K70.40 ICD-9: 572.8 02/16/2018 Other specified abnormal findings of blood chemistry ICD-10 : R79.89 ICD-9: 790.99 02/16/2018 Essential (primary) hypertension ICD-10: I10 ICD-9: 401.1 02/11/2018 Localized edema ICD-10: R60.0 ICD-9: 782.3 02/11/2018 Abnormal levels of other serum enzymes ICD-10: R74.8 ICD-9: 790.5 02/11/2018 Alcoholic cirrhosis of liver with ascites ICD-10: K70.31 ICD-9: 571.2 02/11/2018 Generalized abdominal pain ICD-10: R10.84 ICD-9: [...] For Visit Effective Dates Notes weight gain/obesity 02/16/2018 weight gain/obesity 02/11/2018 breast complaint 11/24/2017 cough 06/10/2017 hypertension 01/23/2017 hematuria 11/28/2016 cough 11/11/2016 arrhythmia 10/22/2016 Results Observation Observation Code Item Item Code Result Date Lipid Ord30 CHOL 222 mg/dL 04/08/2017 Lipid Ord30 HDL 77.0 mg/dl 04/08/2017 Lipid Ord30 TRIG 79 mg/dL 04/08/2017 Lipid Ord30 LDL 129 mg/dL 04/08/2017 Lipid Ord30 C/HDL 2.9 Ratio 04/08/2017 Hepatic Vtk591 ALBUMIN 4.0 g/dL 04/08/2017 Hepatic Ybu501 TPRO 6.6 g/dL 04/08/2017 Hepatic Gop640 GLOB 2.6 g/dL 04/08/2017 Hepatic Xpy128 A/G Ratio 1.5 Ratio 04/08/2017 Hepatic Kya926 ALK PHOS 121 U/L 04/08/2017 Hepatic Aie008 ALT(SGPT) 57 U/L 04/08/2017 Hepatic Lse039 AST(SGOT) 79 U/L 04/08/2017 Hepatic Glb831 BILI T 1.1 mg/dL 04/08/2017 Hepatic Asq921 BILI D 0.3 mg/dL 04/08/2017 Hepatic Sav445 BILI I 0.8 mg/dL 04/08/2017 Comp Metabolic Nbp021 NA 136 mEq/L 02/12/2017 Comp Metabolic Tdv819 K 4.3 mEq/L 02/12/2017 Comp Metabolic Uqb966 CL 92 mEq/L 02/12/2017 Comp Metabolic Une835 CO2 28.0 mEq/L 02/12/2017 Comp Metabolic Hzj824 ANION GAP 20 02/12/2017 Comp Metabolic Rax741 GLUCOSE 77 mg/dL 02/12/2017 Comp Metabolic Glo228 Creat 1.0 mg/dL 02/12/2017 Comp Metabolic Wso698 eGFR 83 ml/min/1.73m2 02/12/2017 Comp Metabolic Oqg336 BUN 11 mg/dL 02/12/2017 Comp Metabolic Rqs995 B/C Ratio 11.5 Ratio 02/12/2017 Comp Metabolic Bgi808 CALCIUM 9.4 mg/dL 02/12/2017 Comp Metabolic Zed414 ALK PHOS 109 U/L 02/12/2017 Comp Metabolic Ala136 AST(SGOT) 81 U/L 02/12/2017 Comp Metabolic Maq026 ALT(SGPT) 43 U/L 02/12/2017 Comp Metabolic Kkc861 BILI T 0.6 mg/dL 02/12/2017 Comp Metabolic Uty902 ALBUMIN 3.9 g/dL 02/12/2017 Comp Metabolic Qgj192 TPRO 6.8 g/dL 02/12/2017 Comp Metabolic Ren103 GLOB 2.9 g/dL 02/12/2017 Comp Metabolic Ljs105 A/G Ratio 1.4 Ratio 02/12/2017 Comp Metabolic Epy032 Osmo 270 mOsmo 02/12/2017 Urine Culture Ucult Preliminary NO Growth Day 1 11/30/2016 Urine Culture Ucult Complete NO Growth Day 2 11/30/2016 %Hba1C Zor414 % HbA1c 85574-5 5.5 % 11/11/2016 %Hba1C Das294 Gluc Ave 111 mg/dL 11/11/2016 Vitamin D 25 Oh Pio5122 VITAMIN D, 25 HYDROXY 26.73 ng/mL Comp Metabolic Zwf026 NA 132 mEq/L 11/11/2016 Comp Metabolic Zsd910 K 4.1 mEq/L 11/11/2016 Comp Metabolic Kwa284 CL 94 mEq/L 11/11/2016 Comp Metabolic Dcj885 CO2 24.0 mEq/L 11/11/2016 Comp Metabolic Ocf457 ANION GAP 18 11/11/2016 Comp Metabolic Wnu190 GLUCOSE 103 mg/dL 11/11/2016 Comp Metabolic Kdv650 Creat 1.4 mg/dL 11/11/2016 Comp Metabolic Zxo485 eGFR 54 ml/min/1.73m2 11/11/2016 Comp Metabolic Mne918 BUN 22 mg/dL 11/11/2016 Comp Metabolic Cbx314 B/C Ratio 15.7 Ratio 11/11/2016 Comp Metabolic Jpi981 CALCIUM 8.8 mg/dL 11/11/2016 Comp Metabolic Avp827 ALK PHOS 86 U/L 11/11/2016 Comp Metabolic Lgg638 AST(SGOT) 40 U/L 11/11/2016 Comp Metabolic Vqr121 ALT(SGPT) 24 U/L 11/11/2016 Comp Metabolic Ncg915 BILI T 0.4 mg/dL 11/11/2016 Comp Metabolic Vak004 ALBUMIN 3.9 g/dL 11/11/2016 Comp Metabolic Yid634 TPRO 6.4 g/dL 11/11/2016 Comp Metabolic Ugr724 GLOB 2.5 g/dL 11/11/2016 Comp Metabolic Xxf233 A/G Ratio 1.5 Ratio 11/11/2016 Comp Metabolic Rya431 Osmo 268 mOsmo 11/11/2016 Cbc With Differential [...] 18.8 % 11/11/2016 Cbc With Differential Ord2 Gulf% 13.5 % 11/11/2016 Cbc With Differential Ord2 MCH 30.8 pg 11/11/2016 Cbc With Differential Ord2 Eos% 3.1 % 11/11/2016 Cbc With Differential Ord2 MCHC 33.5 pg 11/11/2016 Cbc With Differential Ord2 PLT 327 K/ul 11/11/2016 Cbc With Differential Ord2 Baso% 0.4 % 11/11/2016 Cbc With Differential Ord2 Neut ABS# 4.51 K/ul 11/11/2016 Cbc With Differential Ord2 RDW 15.4 % 11/11/2016 Cbc With Differential Ord2 Lymph ABS# 1.32 K/ul 11/11/2016 Cbc With Differential Ord2 Gulf ABS# 1.0 K/ul 11/11/2016 Cbc With Differential Ord2 Eos ABS# 0.2 K/ul 11/11/2016 Cbc With Differential Ord2 Baso ABS# 0.0 K/ul 11/11/2016 Review of Systems System Result Effective Dates Constitutional recent illness 02/16/2018 Constitutional No chills [...] Procedure Codes Date THER/PROPH/DIAG INJ SC/IM CPT-4: 93799 06/10/2017 TRIAMCINOLONE ACET INJ NOS CPT-4: J3301 06/10/2017 TRIAMCINOLONE ACET INJ NOS CPT-4: J3301 11/11/2016 Vital Signs Date Vital 02/16/2018 Blood Pressure 1: 120/64 Code : 8480-6 BMI: 30.8 Code : 50534-4 Heart Rate 1 : 106 bpm Height: 5'11 " Respiratory Rate: 22 bpm SpO2: 97% Weight: 221 lbs 02/11/2018 Blood Pressure 1: 120/66 Code : 8480-6 BMI: 34.0 Code : 57423-4 Heart Rate 1 : 99 bpm Height: 5'11" Respiratory Rate: 16 bpm SpO2: 98% Weight: 244 lbs 11/24/2017 Blood Pressure 1: 112/64 Code : 8480-6 BMI: 31.8 Code : 79159-9 Heart Rate 1 : 97 bpm Height: 5'11" SpO2: 96% Weight: 228 lbs 06/10/2017 Blood Pressure 1: 92/58 Code : 8480-6 BMI: 30.8 Code : 20666-2 Heart Rate 1 : 53 bpm Height: 5'11" SpO2: 98% Temperature: 36.4 (C) / 97.5 (F) Weight: 221 lbs 01/23/2017 Blood Pressure 1: 148/82 Code : 8480-6 BMI: 29.8 Code : 81896-0 Heart Rate 1 : 97 bpm Height: 5'11" SpO2: 97% Weight: 214 lbs 11/28/2016 Blood Pressure 1: 140/62 Code : 8480-6 BMI: 29.7 Code : 80259-5 Heart Rate 1 : 102 bpm Height: 5'11 " SpO2: 97% Weight: 213 lbs 11/11/2016 Blood Pressure 1: 114/60 Code : 8480-6 Heart Rate 1: 62 bpm SpO2: 96% Weight: 213 lbs 8 oz 10/22/2016 Blood Pressure 1: 136/68 Code : 8480-6 BMI: 28.9 Code : 97407-6 Heart Rate 1 : 56 bpm Height: 5'11" SpO2: 98% Weight: 207 lbs Functional Status No Functional Status data History of Present Illness Symptom Name Status Result Effective Date Notes weight gain/obesity Location globally 02/16/2018 None breast [...] data Encounters Encounter Performer Location Codes Date ([id number]) 21966 EST. PATIENT, LEVEL III Diagnosis: Other specified abnormal findings of blood chemistry[ICD10: R79.89] Diagnosis: 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 coma[ICD10: K70.40] Diagnosis: Hypo-osmolality and hyponatremia[ICD10: E87.1] Julianne Paulson MD, [facility] CPT-4: 44609 02/16/2018 ([id number]) 11075 EST. PATIENT, LEVEL IV Diagnosis: Generalized abdominal pain[ICD10: R10.84] Diagnosis: Abnormal levels of other serum enzymes[ICD10: R74.8] Diagnosis: Alcoholic cirrhosis of liver with ascites[ICD10: K70.31] Diagnosis: Localized edema[ICD10: R60.0] Julianne Paulson MD, [facility] CPT- 4: 73591 02/11/2018 [id number] 65337 EST. PATIENT, LEVEL IV Diagnosis: Essential (primary) hypertension[ICD10: I10] Diagnosis: Mastodynia[ICD10: N64.4] Julianne Paulson MD, [facility] CPT-4: 52136 11/24/2017 ([id number]) 48314 EST. PATIENT, LEVEL III Diagnosis: Essential (primary) hypertension[ICD10: I10] Diagnosis: Chronic atrial fibrillation[ICD10: I48.2] Diagnosis: Adverse effect of diagnostic agents, initial encounter[ICD10: T50.8X5A] Julianne Paulson MD, [facility] CPT-4: 75003 09/2017 57939 EST. PATIENT, LEVEL III Diagnosis: Essential (primary) hypertension[ICD10: I10] Diagnosis: Chronic atrial fibrillation[ICD10: I48.2] Diagnosis: Asymptomatic microscopic hematuria[ICD10: R31.21] Evelia Paulson MD, [facility] CPT-4: 51253 01/23/2017 ([id number]) 63750 EST. PATIENT, LEVEL III Diagnosis: Asymptomatic microscopic hematuria[ICD10: R31.21] Diagnosis: Chronic atrial fibrillation[ICD10: I48.2] Eva Paulson MD, [facility] CPT-4: 36604 11/28/2016 ([id number]) 46210 EST. PATIENT, LEVEL IV Diagnosis: Essential (primary) hypertension[ICD10: I10] Diagnosis: Anemia, unspecified[ICD10: D64.9] Diagnosis: Impaired fasting glucose[ICD10: R73.01] Diagnosis: Vitamin D deficiency, unspecified[ICD10: E55.9] Diagnosis: Chronic atrial fibrillation[ICD10: I48.2] Diagnosis: Other allergic rhinitis[ICD10: J30.89] Eva Paulson MD, [facility] CPT-4: 67979 11/11/2016 OFFICE VISIT, NEW - LEVEL 3 Diagnosis: Other allergic rhinitis[ICD10: J30.89] Diagnosis: Chronic atrial fibrillation[ICD10: I48.2] Evelia Paulson MD, [facility] CPT-4: 27913 10/22/2016 Plan of Care Planned Activity Notes Codes Status Date Visit Plan: Liver failure - his CT scan was negative for acute abnormality - Hepatitis C was negative - labs are pending for this week - I have informed pt we will initiat a referral - he would like to go to [place] if possible for the referral, therefore I [...] report which is reinforcing his behaviors/habits. 02/16/2018 Patient Education: Patient Medication Summary Completed 02/16/2018 Care Plan: Referral Order SNOMED-CT : 339729305 Pending 02/16/2018 Visit Plan: Ascites - CT [...] monitor symptoms. 02/11/2018 Appointment: Julianne Paulson WPtel: [address] [place], [place] [address] (15 min) Moderate 02/11/2018 Patient Education: Patient Medication Summary Completed 02/11/2018 Patient Education: Patient Medication Summary Completed 02/11/2018 Care Plan: Cbc With Differential will be out friday Pending 2017 Care Plan: Comp Metabolic Pending 02/11/2018 Care Plan: COMPLETE CBC AUTOMATED LOINC : 07420-5 Pending 02/11/2018 Care Plan: CT ABD & PELV W/CONTRAST LOINC : 75061-3 Pending 02/11/2018 Patient Education: Patient Medication Summary [...] be obtained. 11/24/2017 Appointment: Julianne Paulson WPtel: [facility] (15 min) Moderate 11/24/2017 Patient Education: Patient Medication Summary Completed 11/24/2017 Care Plan: Bilateral DIAGNOSTICMAMMOGRAPHYDIGITAL LOINC : 10801-5 Pending 11/24/2017 Appointment: Julianne Paulson WPtel: [facility] (15 min) Moderate 07/01/2017 Patient Education: Patient [...] the pill 06/10/2017 Appointment: Julianne Paulson WPtel: [address] [place], [place] [address] (15 min) Moderate 06/10/2017 Patient Education: Patient Medication Summary Completed 06/10/2017 Appointment: Evelia Balderrama WPtel: [address] [place], [place] [phone] (30 min) Complex 04/24/2017 Referral: Juan Rothman WPtel: [address] [facility] Referral Initiated 02/10/2017 Visit Plan: Hypertension - [...] or concerns. 01/23/2017 Appointment: Evelia Balderrama WPtel: [phone] [facility] (30 min) Complex 01/23/2017 Patient Education: Patient Medication Summary Completed 01/23/2017 Care Plan: Referral Order SNOMED-CT : [id number] Cancelled 01/23/2017 Visit Plan: Afib-not rate controlled today-monitor blood pressure and pulse at home x 1 week and call with readings in 1 week-refer to cardiology-he has not seen a director trial since afib diagnosis six years ago. Hematuria-suspect due to pradaxa-no longer visible but still microscopic- culture urine-patient to call if blood returns-no changes in medication for now 11/28/2016 Appointment: Eva De La Cruz WPtel: [phone] (30 min) Complex 11/28/2016 Patient Education: Patient [...] glucose-check Hgb A1C Vitamin D def-check level Yted-gacxggt-kdld controlled-no change in medications 11/11/2016 Appointment: Eva De La Cruz WPtel: [phone] (30 min) Complex 11/11/2016 Patient Education: Patient [...] becoming uncontrolled. 10/22/2016 [facility]ment[phone] [facility] 10/22/2016 Patient Education: Patient Medication Summary Completed 10/22/2016 Referral: Juan Rothman WPtel: [phone] [id number] Referral Initiated Referral: Dr Avery Referral Appointment [...] pain - bilateral mammograms to be obtained. . Hypertension - well controlled - continue [...] week-refer to cardiology-he has not seen a director trial since afib diagnosis six years ago. Hematuria-suspect [...] STOP BENAZEPRILHCTZ to see if cough resolves Ismkllwjr-grhlu-uawmfpy injection today in the office Hx elevated fasting glucose-check Hgb A1C Vitamin D def-check level Dxyv-oelhzev-nylb controlled-no change in medications . Liver failure - his CT scan was negative for acute abnormality - Hepatitis C was negative - labs are pending for this week - I have informed pt we will initiat a referral - he would like to go to [place] if possible for the referral, therefore I [...]
--- OUTSIDE RECORDS SUMMARY | 2018-06-21 09:59 | XMS REPORT | CCD ---
Author Author Evelia Balderrama MD, [facility] Address [address] [place] [address] Phone Care Team Providers Care Bus Driver/Monitor Name Role Phone PP Unavailable CCM Unavailable Summary Purpose Interface Exchange Insurance Providers Payer name Policy type / Coverage type Covered democrat ID Effective Begin Date Effective End Date WPS Medicare Part B Medicare Part B [id number] 2015 Unknown [employer] [place] Medicare Part B [id number] Unknown Family history Father Diagnosis Age At Onset Cancer Unknown Diabetes mellitus Type 1 Unknown Stroke Unknown Mother Diagnosis Age At Onset advanced age Unknown Sister Diagnosis Age At Onset Migraines Unknown Asthma Unknown Social History Social History Element Codes Description Effective Dates Tobacco history SNOMED CT: 9745293 Quit over 10 years ago smokes pot 11/11/2016 Marital status Unknown Vashti Valles 10/22/2016 Number of children Unknown 0 10/22/2016 Employment Unknown Retired 10/22/2016 Alcohol history Unknown occasionally drinks alcohol 10/22/2016 Frequency of drinks SNOMED CT: 062296375 10 drinks per week 10/22/2016 Has the patient ever used illegal drugs? Unknown Currently uses illegal drugs 10/22/2016 Allergies, Adverse Reactions, Alerts Substance Reaction Codes Entered Date Inactivated Date Status Naprosyn RxNorm: 7258 10/22/2016 No Inactive Date Active Past Medical History Illness Codes Condition Status Onset Date Resolved Date Abnormal levels of other serum enzymes ICD-9: 790.5 ICD-10: R74.8 Active 02/11/2018 Unknown Alcoholic cirrhosis of liver with ascites ICD-9: 571.2 ICD-10: K70.31 Active 02/11/2018 Unknown Essential (primary) hypertension ICD-9: 401.1 ICD-10: I10 Active 11/11/2016 Unknown Generalized abdominal pain ICD-9: 789.07 ICD-10: R10.84 Active 02/11/2018 Unknown Mastodynia ICD-9: 611.71 ICD-10: [...] Problems Condition Codes Effective Dates Condition Status Abnormal levels of other serum enzymes ICD-9: 790.5 ICD-10: R74.8 02/11/2018 Active Alcoholic cirrhosis of liver with ascites ICD-9: 571.2 ICD-10: K70.31 02/11/2018 Active Essential (primary) hypertension ICD-9: 401.1 ICD-10: I10 11/11/2016 Active Generalized abdominal pain ICD-9: 789.07 ICD-10: R10.84 02/11/2018 Active Mastodynia ICD-9: 611.71 ICD-10: N64.4 [...] Fill Instructions Lasix 20 mg tablet RxNorm: 739757 1 Tablet(s) PO BID 201702/15/2018 Active potassium chloride ER 10 mEq capsule,extended release RxNorm: 791928 1 Capsule(s) PO daily 02/11/2018 02/15/2018 Active Xarelto 20 mg tablet RxNorm: 7078099 1 Tablet(s) PO daily -Managed by Dr. Hurley 02/11/2018 11/07/2018 Active Lasix 20 mg tablet RxNorm: 860767 TAKE 1 TABLET BY MOUTH EVERY MORNING NEEDED FOR EDEMA 07/17/2017 10/14/2017 Inactive losartan 50 mg-hydrochlorothiazide 12.5 mg tablet RxNorm: 344949 1 Tablet(s) PO daily 06/10/2017 10/07/2017 Inactive Phenergan-Codeine 6.25 mg-10 mg/5 mL syrup RxNorm: 437705 5-10 Milliliter(s) PO Q6 as needed cough 06/10/2017 No Stop Date Active Kenalog 40 mg/mL suspension for injection RxNorm: 8662737 1 Milliliter(s) Inj 06/10/2017 06/10/2017 Inactive atenolol 50 mg tablet RxNorm: 282254 1 Tablet(s) PO daily 201711/25/2017 Inactive atenolol 50 mg tablet RxNorm: 295738 1 Tablet(s) PO daily 201605/29/2017 Inactive simvastatin 20 mg tablet RxNorm: 774614 TAKE 1 TABLET BY MOUTH EVERY NIGHT AT BEDTIME 02/24/2017 08/22/2017 Inactive Zyrtec 10 mg tablet RxNorm: 8308449 1 TABLET(S) PO DAILY 02/1708/15/2017 Inactive Cartia XT 240 mg capsule,extended release RxNorm: 619029 1 Capsule(s) PO daily 01/20/2017 07/18/2017 Inactive diltiazem 120 mg tablet RxNorm: 215052 1 Tablet(s) PO QHS 11/2606/09/2017 Inactive Vitamin D2 50,000 unit capsule RxNorm: 608597 1 Capsule(s) PO QW 11/15/2016 11/14/2016 Inactive take with vit d 2000 units daily Vitamin D2 50,000 unit capsule RxNorm: 318073 1 Capsule(s) PO QW 11/15/2016 02/06/2017 Inactive take with vit d 2000 units daily Kenalog 40 mg/mL suspension for injection RxNorm: 0720986 1 Milliliter(s) Inj 11/11/2016 11/11/2016 Inactive Pradaxa 150 mg capsule RxNorm: 1973185 TAKE ONE CAPSULE BY MOUTH TWICE DAILY 11/11/2016 06/09/2017 Inactive benazepril 20 mg-hydrochlorothiazide 12.5 mg tablet RxNorm: 879802 1 Tablet(s) PO daily 11/05/2016 06/09/2017 Inactive benazepril 20 mg-hydrochlorothiazide 12.5 mg tablet RxNorm: 381501 1 Tablet(s) PO daily 11/05/2016 11/04/2016 Inactive simvastatin 20 mg tablet RxNorm: 631096 TAKE 1 TABLET BY MOUTH EVERY NIGHT AT BEDTIME 10/24/2016 01/21/2017 Inactive Zyrtec 10 mg tablet RxNorm: 7274888 1 Tablet(s) PO daily 10/2211/20/2016 Inactive Pradaxa 150 mg capsule RxNorm: 6077228 1 Capsule(s) PO BID No Start Date 11/10/2016 Inactive Lasix 20 mg tablet RxNorm: 274807 1 Tablet(s) PO daily as needed No Start Date 07/16/2017 Inactive aspirin 81 mg chewable tablet RxNorm: 240498 1 Tablet(s) PO daily No Start Date 01/20/2017 Inactive Phenergan-Codeine 6.25 mg-10 mg/5 mL syrup RxNorm: 711447 5-10 Milliliter(s) PO Q6 as needed cough No Start Date 2017 Inactive diltiazem 120 mg tablet RxNorm: 873445 1 Tablet(s) PO daily No Start Date 11/25/2016 Inactive atenolol 50 mg tablet RxNorm: 082073 1 Tablet(s) PO daily No Start Date 03/16/2017 Inactive Xarelto 20 mg tablet RxNorm: 0250042 1 Tablet(s) PO daily -Managed by Dr. Hurley No Start Date 02/10/2018 Inactive Cartia XT 240 mg capsule,extended release RxNorm: 212998 1 Capsule(s) PO daily No Start Date 01/19/2017 Inactive simvastatin 20 mg tablet RxNorm: 320401 1 Tablet(s) PO QHS No Start Date 10/23/2016 Inactive Medication Administered Medication Codes Instructions Start Date Status Kenalog 40 mg/mL suspension for injection RxNorm: 1484975 1Milliliter 06/10/2017 No longer Active Kenalog 40 mg/mL suspension for injection RxNorm: 1533157 1Milliliter 11/11/2016 No longer Active Immunizations No Immunization data Assessments Condition Codes Effective Dates Essential (primary) hypertension ICD-10: I10 ICD-9: 401.1 02/11/2018 Mastodynia ICD-10: N64.4 ICD-9: 611.71 12/11/2017 [...] Visit Reason For Visit Effective Dates Notes breast complaint 11/24/2017 cough 06/10/2017 hypertension 01/23/2017 hematuria 11/28/2016 cough 11/11/2016 arrhythmia 10/22/2016 Results Observation Observation Code Item Item Code Result Date Lipid Ord30 CHOL 222 mg/dL 04/08/2017 Lipid Ord30 HDL 77.0 mg/dl 04/08/2017 Lipid Ord30 TRIG 79 mg/dL 04/08/2017 Lipid Ord30 LDL 129 mg/dL 04/08/2017 Lipid Ord30 C/HDL 2.9 Ratio 04/08/2017 Hepatic Vke419 ALBUMIN 4.0 g/dL 04/08/2017 Hepatic Psp540 TPRO 6.6 g/dL 04/08/2017 Hepatic Bxu931 GLOB 2.6 g/dL 04/08/2017 Hepatic Dvj200 A/G Ratio 1.5 Ratio 04/08/2017 Hepatic Hkg791 ALK PHOS 121 U/L 04/08/2017 Hepatic Jve228 ALT(SGPT) 57 U/L 04/08/2017 Hepatic Siz240 AST(SGOT) 79 U/L 04/08/2017 Hepatic Zkb004 BILI T 1.1 mg/dL 04/08/2017 Hepatic Vyo697 BILI D 0.3 mg/dL 04/08/2017 Hepatic Mex267 BILI I 0.8 mg/dL 04/08/2017 Comp Metabolic Fqb760 NA 136 mEq/L 02/12/2017 Comp Metabolic Fhy618 K 4.3 mEq/L 02/12/2017 Comp Metabolic Szx963 CL 92 mEq/L 02/12/2017 Comp Metabolic Ott313 CO2 28.0 mEq/L 02/12/2017 Comp Metabolic Lja619 ANION GAP 20 02/12/2017 Comp Metabolic Glk541 GLUCOSE 77 mg/dL 02/12/2017 Comp Metabolic Tae116 Creat 1.0 mg/dL 02/12/2017 Comp Metabolic Tjk746 eGFR 83 ml/min/1.73m2 02/12/2017 Comp Metabolic Ijm319 BUN 11 mg/dL 02/12/2017 Comp Metabolic Pvl772 B/C Ratio 11.5 Ratio 02/12/2017 Comp Metabolic Hed976 CALCIUM 9.4 mg/dL 02/12/2017 Comp Metabolic Gri868 ALK PHOS 109 U/L 02/12/2017 Comp Metabolic Cpn691 AST(SGOT) 81 U/L 02/12/2017 Comp Metabolic Syn854 ALT(SGPT) 43 U/L 02/12/2017 Comp Metabolic Vaz192 BILI T 0.6 mg/dL 02/12/2017 Comp Metabolic Mxq426 ALBUMIN 3.9 g/dL 02/12/2017 Comp Metabolic Tne529 TPRO 6.8 g/dL 02/12/2017 Comp Metabolic Vmj591 GLOB 2.9 g/dL 02/12/2017 Comp Metabolic Xbu985 A/G Ratio 1.4 Ratio 02/12/2017 Comp Metabolic Nxy954 Osmo 270 mOsmo 02/12/2017 Urine Culture Ucult Preliminary NO Growth Day 1 11/30/2016 Urine Culture Ucult Complete NO Growth Day 2 11/30/2016 %Hba1C Yuu760 % HbA1c 91737-0 5.5 % 11/11/2016 %Hba1C Fsd210 Gluc Ave 111 mg/dL 11/11/2016 Vitamin D 25 Oh Oiz0339 VITAMIN D, 25 HYDROXY 26.73 ng/mL Comp Metabolic Juf399 NA 132 mEq/L 11/11/2016 Comp Metabolic Gof906 K 4.1 mEq/L 11/11/2016 Comp Metabolic Vgg955 CL 94 mEq/L 11/11/2016 Comp Metabolic Gfj364 CO2 24.0 mEq/L 11/11/2016 Comp Metabolic Afd342 ANION GAP 18 11/11/2016 Comp Metabolic Kmu278 GLUCOSE 103 mg/dL 11/11/2016 Comp Metabolic Mhs940 Creat 1.4 mg/dL 11/11/2016 Comp Metabolic Xge747 eGFR 54 ml/min/1.73m2 11/11/2016 Comp Metabolic Nvt753 BUN 22 mg/dL 11/11/2016 Comp Metabolic Vks521 B/C Ratio 15.7 Ratio 11/11/2016 Comp Metabolic Jhs277 CALCIUM 8.8 mg/dL 11/11/2016 Comp Metabolic Flo812 ALK PHOS 86 U/L 11/11/2016 Comp Metabolic Ixm586 AST(SGOT) 40 U/L 11/11/2016 Comp Metabolic Fvf288 ALT(SGPT) 24 U/L 11/11/2016 Comp Metabolic Jto180 BILI T 0.4 mg/dL 11/11/2016 Comp Metabolic Cwg128 ALBUMIN 3.9 g/dL 11/11/2016 Comp Metabolic Bjg740 TPRO 6.4 g/dL 11/11/2016 Comp Metabolic Hxt449 GLOB 2.5 g/dL 11/11/2016 Comp Metabolic Eds727 A/G Ratio 1.5 Ratio 11/11/2016 Comp Metabolic Xxi831 Osmo 268 mOsmo 11/11/2016 Cbc With Differential [...] 18.8 % 11/11/2016 Cbc With Differential Ord2 Crockett% 13.5 % 11/11/2016 Cbc With Differential Ord2 [...] 1.32 K/ul 11/11/2016 Cbc With Differential Ord2 [place] ABS# 1.0 K/ul 11/11/2016 Cbc With Differential Ord2 Eos ABS# 0.2 K/ul 11/11/2016 Cbc With Differential Ord2 Baso ABS# 0.0 K/ul 11/11/2016 Review of Systems System Result Effective Dates Constitutional No recent illness 2017 Constitutional No [...] Procedure Codes Date THER/PROPH/DIAG INJ SC/IM CPT-4: 40957 06/10/2017 TRIAMCINOLONE ACET INJ NOS CPT-4: J3301 06/10/2017 TRIAMCINOLONE ACET INJ NOS CPT-4: J3301 11/11/2016 Vital Signs Date Vital 11/24/2017 Blood Pressure 1: 112/64 Code : 8480-6 BMI: 31.8 Code : 00834-3 Heart Rate 1 : 97 bpm Height: 5'11" SpO2: 96% Weight: 228 lbs 06/10/2017 Blood Pressure 1: 92/58 Code : 8480-6 BMI: 30.8 Code : 86055-9 Heart Rate 1 : 53 bpm Height: 5'11" SpO2: 98% Temperature: 36.4 (C) / 97.5 (F) Weight: 221 lbs 01/23/2017 Blood Pressure 1: 148/82 Code : 8480-6 BMI: 29.8 Code : 99431-6 Heart Rate 1 : 97 bpm Height: 5'11" SpO2: 97% Weight: 214 lbs 11/28/2016 Blood Pressure 1: 140/62 Code : 8480-6 BMI: 29.7 Code : 18058-5 Heart Rate 1 : 102 bpm Height: 5'11 " SpO2: 97% Weight: 213 lbs 11/11/2016 Blood Pressure 1: 114/60 Code : 8480-6 Heart Rate 1: 62 bpm SpO2: 96% Weight: 213 lbs 8 oz 10/22/2016 Blood Pressure 1: 136/68 Code : 8480-6 BMI: 28.9 Code : 94582-5 Heart Rate 1 : 56 bpm Height: 5'11" SpO2: 98% Weight: 207 lbs Functional Status No Functional Status data History of Present Illness Symptom Name Status Result Effective Date Notes breast complaint Location in the left nipple [...] data Encounters Encounter Performer Location Codes Date [id number]) [id number] EST. PATIENT, LEVEL IV Diagnosis: Essential (primary) hypertension[ICD10: I10] Diagnosis: Mastodynia[ICD10: N64.4] Julianne Paulson MD, [facility] CPT-4: 59946 11/24/2017 ([id number]) [id number] EST. PATIENT, LEVEL III Diagnosis: Essential (primary) hypertension[ICD10: I10] Diagnosis: Chronic atrial fibrillation[ICD10: I48.2] Diagnosis: Adverse effect of diagnostic agents, initial encounter[ICD10: T50.8X5A] Julianne Paulson MD, [facility] CPT-4: 72605 09/2017 95482 EST. PATIENT, LEVEL III Diagnosis: Essential (primary) hypertension[ICD10: I10] Diagnosis: Chronic atrial fibrillation[ICD10: I48.2] Diagnosis: Asymptomatic microscopic hematuria[ICD10: R31.21] Evelia Paulson MD, [facility] CPT-4: 33668 01/23/2017 [id number] [id number] EST. PATIENT, LEVEL III Diagnosis: Asymptomatic microscopic hematuria[ICD10: R31.21] Diagnosis: Chronic atrial fibrillation[ICD10: I48.2] Eva Paulson MD, [facility] CPT-4: 42205 11/28/[id number]) [id number] EST. PATIENT, LEVEL IV Diagnosis: Essential (primary) hypertension[ICD10: I10] Diagnosis: Anemia, unspecified[ICD10: D64.9] Diagnosis: Impaired fasting glucose[ICD10: R73.01] Diagnosis: Vitamin D deficiency, unspecified[ICD10: E55.9] Diagnosis: Chronic atrial fibrillation[ICD10: I48.2] Diagnosis: Other allergic rhinitis[ICD10: J30.89] [facility] CPT-4: 81216 11/11/2016 OFFICE VISIT, NEW - LEVEL 3 Diagnosis: Other allergic rhinitis[ICD10: J30.89] Diagnosis: Chronic atrial fibrillation[ICD10: I48.2] [facility] CPT-4: 70406 10/22/2016 Plan of Care Planned Activity Notes Codes Status Date Patient Education: Patient Medication Summary Completed 02/11/2018 Care Plan: Cbc With Differential will be out friday Pending 2017 Care Plan: Comp Metabolic Pending 02/11/2018 Patient Education: Patient Medication Summary [...] be obtained. 11/24/2017 Appointment: Julianne Paulson WPtel: [facility]5 [facility] (15 min) Moderate 11/24/2017 Patient Education: Patient Medication Summary Completed 11/24/2017 Care Plan: Bilateral DIAGNOSTICMAMMOGRAPHYDIGITAL LOINC : 63532-3 Pending 11/24/2017 Appointment: Julianne Paulson WPtel: [address] [place], [place] [phone] (15 min) Moderate 07/01/2017 Patient Education: Patient [...] the pill 06/10/2017 Appointment: Julianne Paulson WPtel: [phone] [facility] [place] (15 min) Moderate 06/10/2017 Patient Education: Patient Medication Summary Completed 06/10/2017 Appointment: Evelia Balderrama WPtel: [phone] [facility] (30 min) Complex 04/24/2017 Referral: Juan Rothman WPtel: [phone] [id number] Referral Initiated 02/10/2017 Visit Plan: Hypertension - [...] or concerns. 01/23/2017 Appointment: Evelia Balderrama WPtel: [facility] (30 min) Complex 01/23/2017 Patient Education: Patient Medication Summary Completed 01/23/2017 Care Plan: Referral Order SNOMED-CT : [id number] Cancelled 01/23/2017 Visit Plan: Afib-not rate controlled today-monitor blood pressure and pulse at home x 1 week and call with readings in 1 week-refer to cardiology-he has not seen a adult specialist since afib diagnosis six years ago. Hematuria-suspect due to pradaxa-no longer visible but still microscopic- culture urine-patient to call if blood returns-no changes in medication for now 11/28/2016 Appointment: Eva De La Cruz WPtel: [phone] [phone] [place] (30 min) Complex 11/28/2016 Patient Education: [...] glucose-check Hgb A1C Vitamin D def-check level Bnlf-zfykdmv-kftq controlled-no change in medications 11/11/2016 Appointment: Eva De La Cruz WPtel: [phone] (30 min) Complex 11/11/2016 Patient Education: Patient [...] becoming uncontrolled. 10/22/2016 Appointment: Evelia Balderrama WPtel: [facility]5 [facility]66[facility] New Patient 10/22/2016 Patient Education: Patient Medication Summary Completed 10/22/2016 Referral: Juan Rothman WPtel: [phone] Referral Initiated Instructions Comment . Allergies - chronic - [...] week-refer to cardiology-he has not seen a adult specialist since afib diagnosis six years ago. Hematuria-suspect [...] in blood pressure readings at home. STOP BENAZEPRILRODTZ to see if cough resolves Queotokex-vweio-pulvfuf injection today in the office Hx elevated fasting glucose-check Hgb A1C Vitamin D def-check level Crff-maizcsn-ojmc controlled-no change in medications zantac 150mg - take twice daily x [...]
--- OUTSIDE RECORDS SUMMARY | 2018-06-21 09:59 | XMS REPORT | CCD ---
Author Author Evelia Balderrama MD, [facility] Address [address] [place] [address] Phone Care Team Providers Care Vise Hand Name Role Phone PP Unavailable CCM Unavailable Summary Purpose Interface Exchange Insurance Providers Payer name Policy type / Coverage type Covered alliance party ID Effective Begin Date Effective End Date WPS Medicare Part B Medicare Part B [id number] 2015 Unknown [employer] [place] Medicare Part B [id number] Unknown Family history Father Diagnosis Age At Onset Cancer Unknown Diabetes mellitus Type 1 Unknown Stroke Unknown Mother Diagnosis Age At Onset advanced age Unknown Sister Diagnosis Age At Onset Migraines Unknown Asthma Unknown Social History Social History Element Codes Description Effective Dates Tobacco history SNOMED CT: 7588154 Quit over 10 years ago smokes pot 11/11/2016 Marital status Unknown Vashti Valles 10/22/2016 Number of children Unknown 0 10/22/2016 Employment Unknown Retired 10/22/2016 Alcohol history Unknown occasionally drinks alcohol 10/22/2016 Frequency of drinks SNOMED CT: 806840695 10 drinks per week 10/22/2016 Has the [...] Fill Instructions Lasix 20 mg tablet RxNorm: 581133 1 Tablet(s) PO BID 201702/15/2018 Active potassium chloride ER 10 mEq capsule,extended release RxNorm: 438124 1 Capsule(s) PO daily 02/11/2018 02/15/2018 Active Xarelto 20 mg tablet RxNorm: 1369876 1 Tablet(s) PO daily -Managed by Dr. Hurley 02/11/2018 11/07/2018 Active Lasix 20 mg tablet RxNorm: 377098 TAKE 1 TABLET BY MOUTH EVERY MORNING NEEDED FOR EDEMA 07/17/2017 10/14/2017 Inactive losartan 50 mg-hydrochlorothiazide 12.5 mg tablet RxNorm: 201334 1 Tablet(s) PO daily 06/10/2017 10/07/2017 Inactive Phenergan-Codeine 6.25 mg-10 mg/5 mL syrup RxNorm: 573947 5-10 Milliliter(s) PO Q6 as needed cough 06/10/2017 No Stop Date Active Kenalog 40 mg/mL suspension for injection RxNorm: 7585600 1 Milliliter(s) Inj 06/10/2017 06/10/2017 Inactive atenolol 50 mg tablet RxNorm: 958020 1 Tablet(s) PO daily 201711/25/2017 Inactive atenolol 50 mg tablet RxNorm: 415407 1 Tablet(s) PO daily 201605/29/2017 Inactive simvastatin 20 mg tablet RxNorm: 407660 TAKE 1 TABLET BY MOUTH EVERY NIGHT AT BEDTIME 02/24/2017 08/22/2017 Inactive Zyrtec 10 mg tablet RxNorm: 0076254 1 TABLET(S) PO DAILY 02/1708/15/2017 Inactive Cartia XT 240 mg capsule,extended release RxNorm: 236483 1 Capsule(s) PO daily 01/20/2017 07/18/2017 Inactive diltiazem 120 mg tablet RxNorm: 166059 1 Tablet(s) PO QHS 11/2606/09/2017 Inactive Vitamin D2 50,000 unit capsule RxNorm: 843669 1 Capsule(s) PO QW 11/15/2016 11/14/2016 Inactive take with vit d 2000 units daily Vitamin D2 50,000 unit capsule RxNorm: 133930 1 Capsule(s) PO QW 11/15/2016 02/06/2017 Inactive take with vit d 2000 units daily Kenalog 40 mg/mL suspension for injection RxNorm: 4055697 1 Milliliter(s) Inj 11/11/2016 11/11/2016 Inactive Pradaxa 150 mg capsule RxNorm: 0568711 TAKE ONE CAPSULE BY MOUTH TWICE DAILY 11/11/2016 06/09/2017 Inactive benazepril 20 mg-hydrochlorothiazide 12.5 mg tablet RxNorm: 001438 1 Tablet(s) PO daily 11/05/2016 06/09/2017 Inactive benazepril 20 mg-hydrochlorothiazide 12.5 mg tablet RxNorm: 566996 1 Tablet(s) PO daily 11/05/2016 11/04/2016 Inactive simvastatin 20 mg tablet RxNorm: 240964 TAKE 1 TABLET BY MOUTH EVERY NIGHT AT BEDTIME 10/24/2016 01/21/2017 Inactive Zyrtec 10 mg tablet RxNorm: 2501124 1 Tablet(s) PO daily 10/2211/20/2016 Inactive Pradaxa 150 mg capsule RxNorm: 3723176 1 Capsule(s) PO BID No Start Date 11/10/2016 Inactive Lasix 20 mg tablet RxNorm: 981164 1 Tablet(s) PO daily as needed No Start Date 07/16/2017 Inactive aspirin 81 mg chewable tablet RxNorm: 120236 1 Tablet(s) PO daily No Start Date 01/20/2017 Inactive Phenergan-Codeine 6.25 mg-10 mg/5 mL syrup RxNorm: 087079 5-10 Milliliter(s) PO Q6 as needed cough No Start Date 2017 Inactive diltiazem 120 mg tablet RxNorm: 062388 1 Tablet(s) PO daily No Start Date 11/25/2016 Inactive atenolol 50 mg tablet RxNorm: 522971 1 Tablet(s) PO daily No Start Date 03/16/2017 Inactive Xarelto 20 mg tablet RxNorm: 4636596 1 Tablet(s) PO daily -Managed by Dr. Hurley No Start Date 02/10/2018 Inactive Cartia XT 240 mg capsule,extended release RxNorm: 247167 1 Capsule(s) PO daily No Start Date 01/19/2017 Inactive simvastatin 20 mg tablet RxNorm: 488763 1 Tablet(s) PO QHS No Start Date 10/23/2016 Inactive Medication Administered Medication Codes Instructions Start Date Status Kenalog 40 mg/mL suspension for injection RxNorm: 5645006 1Milliliter 06/10/2017 No longer Active Kenalog 40 mg/mL suspension for injection RxNorm: 4823964 1Milliliter 11/11/2016 No longer Active Immunizations No [...] For Visit Effective Dates Notes weight gain/obesity 02/11/2018 breast complaint 11/24/2017 cough 06/10/2017 hypertension 01/23/2017 hematuria 11/28/2016 cough 11/11/2016 arrhythmia 10/22/2016 Results Observation Observation Code Item Item Code Result Date Lipid Ord30 CHOL 222 mg/dL 04/08/2017 Lipid Ord30 HDL 77.0 mg/dl 04/08/2017 Lipid Ord30 TRIG 79 mg/dL 04/08/2017 Lipid Ord30 LDL 129 mg/dL 04/08/2017 Lipid Ord30 C/HDL 2.9 Ratio 04/08/2017 Hepatic Kyi691 ALBUMIN 4.0 g/dL 04/08/2017 Hepatic Bed271 TPRO 6.6 g/dL 04/08/2017 Hepatic Sqh714 GLOB 2.6 g/dL 04/08/2017 Hepatic Qwv167 A/G Ratio 1.5 Ratio 04/08/2017 Hepatic Hhj498 ALK PHOS 121 U/L 04/08/2017 Hepatic Grj172 ALT(SGPT) 57 U/L 04/08/2017 Hepatic Oij936 AST(SGOT) 79 U/L 04/08/2017 Hepatic Yid904 BILI T 1.1 mg/dL 04/08/2017 Hepatic Oim279 BILI D 0.3 mg/dL 04/08/2017 Hepatic Pwz754 BILI I 0.8 mg/dL 04/08/2017 Comp Metabolic Sga268 NA 136 mEq/L 02/12/2017 Comp Metabolic Fka189 K 4.3 mEq/L 02/12/2017 Comp Metabolic Abw158 CL 92 mEq/L 02/12/2017 Comp Metabolic Ovg819 CO2 28.0 mEq/L 02/12/2017 Comp Metabolic Xsu251 ANION GAP 20 02/12/2017 Comp Metabolic Zyk821 GLUCOSE 77 mg/dL 02/12/2017 Comp Metabolic Tzi568 Creat 1.0 mg/dL 02/12/2017 Comp Metabolic Liq816 eGFR 83 ml/min/1.73m2 02/12/2017 Comp Metabolic Gkt375 BUN 11 mg/dL 02/12/2017 Comp Metabolic Cbd106 B/C Ratio 11.5 Ratio 02/12/2017 Comp Metabolic Ogj322 CALCIUM 9.4 mg/dL 02/12/2017 Comp Metabolic Qor403 ALK PHOS 109 U/L 02/12/2017 Comp Metabolic Hha721 AST(SGOT) 81 U/L 02/12/2017 Comp Metabolic Fxg612 ALT(SGPT) 43 U/L 02/12/2017 Comp Metabolic Kge516 BILI T 0.6 mg/dL 02/12/2017 Comp Metabolic Ohv284 ALBUMIN 3.9 g/dL 02/12/2017 Comp Metabolic Gsm760 TPRO 6.8 g/dL 02/12/2017 Comp Metabolic Skn290 GLOB 2.9 g/dL 02/12/2017 Comp Metabolic Quc791 A/G Ratio 1.4 Ratio 02/12/2017 Comp Metabolic Meu911 Osmo 270 mOsmo 02/12/2017 Urine Culture Ucult Preliminary NO Growth Day 1 11/30/2016 Urine Culture Ucult Complete NO Growth Day 2 11/30/2016 %Hba1C Kdk025 % HbA1c 88542-2 5.5 % 11/11/2016 %Hba1C Oog567 Gluc Ave 111 mg/dL 11/11/2016 Vitamin D 25 Oh Hwp9196 VITAMIN D, 25 HYDROXY 26.73 ng/mL Comp Metabolic Puv297 NA 132 mEq/L 11/11/2016 Comp Metabolic Bdb938 K 4.1 mEq/L 11/11/2016 Comp Metabolic Nvn869 CL 94 mEq/L 11/11/2016 Comp Metabolic Kjp051 CO2 24.0 mEq/L 11/11/2016 Comp Metabolic Zsl088 ANION GAP 18 11/11/2016 Comp Metabolic Huk648 GLUCOSE 103 mg/dL 11/11/2016 Comp Metabolic Hlm104 Creat 1.4 mg/dL 11/11/2016 Comp Metabolic Ufu052 eGFR 54 ml/min/1.73m2 11/11/2016 Comp Metabolic Lyo876 BUN 22 mg/dL 11/11/2016 Comp Metabolic Yew767 B/C Ratio 15.7 Ratio 11/11/2016 Comp Metabolic Hiq348 CALCIUM 8.8 mg/dL 11/11/2016 Comp Metabolic Ogl118 ALK PHOS 86 U/L 11/11/2016 Comp Metabolic Xai879 AST(SGOT) 40 U/L 11/11/2016 Comp Metabolic Sdu363 ALT(SGPT) 24 U/L 11/11/2016 Comp Metabolic Pti550 BILI T 0.4 mg/dL 11/11/2016 Comp Metabolic Pyj085 ALBUMIN 3.9 g/dL 11/11/2016 Comp Metabolic Awy328 TPRO 6.4 g/dL 11/11/2016 Comp Metabolic Sci666 GLOB 2.5 g/dL 11/11/2016 Comp Metabolic Gnq136 A/G Ratio 1.5 Ratio 11/11/2016 Comp Metabolic Ony258 Osmo 268 mOsmo 11/11/2016 Cbc With Differential [...] 18.8 % 11/11/2016 Cbc With Differential Ord2 [place]% 13.5 % 11/11/2016 Cbc With Differential Ord2 [...] 1.32 K/ul 11/11/2016 Cbc With Differential Ord2 [place] ABS# 1.0 K/ul 11/11/2016 Cbc With Differential [...] clear 11/11/2016 None Full Exam - General 1995 Ears/Nose/Throat [...] Procedure Codes Date THER/PROPH/DIAG INJ SC/IM CPT-4: 23158 06/10/2017 TRIAMCINOLONE ACET INJ NOS CPT-4: J3301 06/10/2017 TRIAMCINOLONE ACET INJ NOS CPT-4: J3301 11/11/2016 Vital Signs Date Vital 02/11/2018 Blood Pressure 1: 120/66 Code : 8480-6 BMI: 34.0 Code : 17428-6 Heart Rate 1 : 99 bpm Height: 5'11" Respiratory Rate: 16 bpm SpO2: 98% Weight: 244 lbs 11/24/2017 Blood Pressure 1: 112/64 Code : 8480-6 BMI: 31.8 Code : 62864-7 Heart Rate 1 : 97 bpm Height: 5'11" SpO2: 96% Weight: 228 lbs 06/10/2017 Blood Pressure 1: 92/58 Code : 8480-6 BMI: 30.8 Code : 49348-6 Heart Rate 1 : 53 bpm Height: 5'11" SpO2: 98% Temperature: 36.4 (C) / 97.5 (F) Weight: 221 lbs 01/23/2017 Blood Pressure 1: 148/82 Code : 8480-6 BMI: 29.8 Code : 45860-1 Heart Rate 1 : 97 bpm Height: 5'11" SpO2: 97% Weight: 214 lbs 11/28/2016 Blood Pressure 1: 140/62 Code : 8480-6 BMI: 29.7 Code : 13922-8 Heart Rate 1 : 102 bpm Height: 5'11 " SpO2: 97% Weight: 213 lbs 11/11/2016 Blood Pressure 1: 114/60 Code : 8480-6 Heart Rate 1: 62 bpm SpO2: 96% Weight: 213 lbs 8 oz 10/22/2016 Blood Pressure 1: 136/68 Code : 8480-6 BMI: 28.9 Code : 46509-4 Heart Rate 1 : 56 bpm Height: [...] data Encounters Encounter Performer Location Codes Date ([id number]) 82720 EST. PATIENT, LEVEL IV Diagnosis: Generalized abdominal pain[ICD10: R10.84] Diagnosis: Abnormal levels of other serum enzymes[ICD10: R74.8] Diagnosis: Alcoholic cirrhosis of liver with ascites[ICD10: K70.31] Diagnosis: Localized edema[ICD10: R60.0] Julianne Paulson MD, [facility] CPT- 4: 22193 02/11/2018 [id number]) 54561 EST. PATIENT, LEVEL IV Diagnosis: Essential (primary) hypertension[ICD10: I10] Diagnosis: Mastodynia[ICD10: N64.4] [facility] CPT-4: 47483 11/24/2017 19843) 14797 EST. PATIENT, LEVEL III Diagnosis: Essential (primary) hypertension[ICD10: I10] Diagnosis: Chronic atrial fibrillation[ICD10: I48.2] Diagnosis: Adverse effect of diagnostic agents, initial encounter[ICD10: T50.8X5A] [facility] CPT-4: 59246 09/2017 54736 EST. PATIENT, LEVEL III Diagnosis: Essential (primary) hypertension[ICD10: I10] Diagnosis: Chronic atrial fibrillation[ICD10: I48.2] Diagnosis: Asymptomatic microscopic hematuria[ICD10: R31.21] [facility] CPT-4: 95474 01/23/2017 [id number] 73603 EST. PATIENT, LEVEL III Diagnosis: Asymptomatic microscopic hematuria[ICD10: R31.21] Diagnosis: Chronic atrial fibrillation[ICD10: I48.2] Eva Paulson MD, [facility] CPT-4: 01248 11/28/2016 87355 04068 EST. PATIENT, LEVEL IV Diagnosis: Essential (primary) hypertension[ICD10: I10] Diagnosis: Anemia, unspecified[ICD10: D64.9] Diagnosis: Impaired fasting glucose[ICD10: R73.01] Diagnosis: Vitamin D deficiency, unspecified[ICD10: E55.9] Diagnosis: Chronic atrial fibrillation[ICD10: I48.2] Diagnosis: Other allergic rhinitis[ICD10: J30.89] Eav Paulson MD, [facility] CPT-4: 07593 11/11/2016 OFFICE VISIT, NEW - LEVEL 3 Diagnosis: Other allergic rhinitis[ICD10: J30.89] Diagnosis: Chronic atrial fibrillation[ICD10: I48.2] Evelia Paulson MD, [facility] CPT-4: 59935 10/22/2016 Plan of Care Planned Activity Notes Codes Status Date Visit Plan: Ascites - CT scan positive for large ascites, discussed with Dr. Dutta - he is going to have the patient scheduled for a Paracentesis on Friday of this week. Hyponatremia - due to the large amount of ascites - supportive care, monitor symptoms. Edema - discussed with pt - start on lasix and potassium, monitor symptoms. 02/11/2018 Patient Education: Patient Medication Summary Completed 02/11/2018 Patient Education: Patient Medication Summary Completed 02/11/2018 Care Plan: Cbc With Differential will be out friday Pending 2017 Care Plan: Comp Metabolic Pending 02/11/2018 Care Plan: COMPLETE CBC AUTOMATED LOINC : 42889-9 Pending 02/11/2018 Care Plan: CT ABD & PELV W/CONTRAST LOINC : 46457-8 Pending 02/11/2018 Patient Education: Patient Medication Summary [...] be obtained. 11/24/2017 Appointment: Julianne Paulson WPtel: [facility] (15 min) Moderate 11/24/2017 Patient Education: Patient Medication Summary Completed 11/24/2017 Care Plan: Bilateral DIAGNOSTICMAMMOGRAPHYDIGITAL LOINC : 11244-6 Pending 11/24/2017 Appointment: Julianne Paulson WPtel: [facility] (15 min) Moderate 07/01/2017 Patient Education: Patient [...] the pill 06/10/2017 Appointment: Julianne Paulson WPtel: [address] [place], [place] [phone] (15 min) Moderate 06/10/2017 Patient Education: Patient Medication Summary Completed 06/10/2017 Appointment: Evelia Balderrama WPtel: [facility] (30 min) Complex 04/24/2017 [facility] [phone] [facility] Referral Initiated 02/10/2017 Visit Plan: Hypertension - [...] or concerns. 01/23/2017 Appointment: Evelia Balderrama WPtel: [address] [place], [place] [phone] (30 min) Complex 01/23/2017 Patient Education: Patient Medication Summary Completed 01/23/2017 Care Plan: Referral Order SNOMED-CT : [id number] Cancelled 01/23/2017 Visit Plan: Afib-not rate controlled today-monitor blood pressure and pulse at home x 1 week and call with readings in 1 week-refer to cardiology-he has not seen a him specialists since afib diagnosis six years ago. Hematuria-suspect due to pradaxa-no longer visible but still microscopic- culture urine-patient to call if blood returns-no changes in medication for now 11/28/2016 Appointment: Eva De La Cruz WPtel: [phone] (30 min) Complex 11/28/2016 Patient Education: Patient [...] glucose-check Hgb A1C Vitamin D def-check level Ixoi-eupkueg-lats controlled-no change in medications 11/11/2016 Appointment: Eva De La Cruz WPtel: [address] [place], [place] [phone] (30 min) Complex 11/11/2016 Patient Education: Patient [...] becoming uncontrolled. 10/22/2016 [facility]ment: [facility] [address] [facility] [facility] Patient 10/22/2016 Patient Education: Patient Medication Summary Completed 10/22/2016 Ref[facility]: Juan Roth[facility] [phone] [facility] Ref[facility] Initiated Instructions Comment . Allergies - [...] week-refer to cardiology-he has not seen a him specialists since afib diagnosis six years ago. Hematuria-suspect [...] STOP BENAZEPRILHCTZ to see if cough resolves Yanudiscu-gbkia-tcdbesg injection today in the office Hx elevated fasting glucose-check Hgb A1C Vitamin D def-check level Ahxv-vwefowh-rtvn controlled-no change in medications . Ascites - CT scan positive for [...]
--- OUTSIDE RECORDS SUMMARY | 2018-06-21 10:00 | XMS REPORT | CCD ---
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 Manager Name Role Phone PP Unavailable CCM Unavailable Summary Purpose Interface Exchange Insurance Providers Payer name Policy type / Coverage type Covered democrat ID Effective Begin Date Effective End Date WPS Medicare Part B Medicare Part B [id number] 2015 Unknown [employer] [place] Medicare Part B [id number] 2015 Unknown Family history Father Diagnosis Age At Onset Cancer Unknown Diabetes mellitus Type 1 Unknown Stroke Unknown Mother Diagnosis Age At Onset advanced age Unknown Sister Diagnosis Age At Onset Migraines Unknown Asthma Unknown Social History Social History Element Codes Description Effective Dates Tobacco history SNOMED CT: 7117569 Quit over 10 years ago smokes pot 11/11/2016 Marital status Unknown Vashti Valles 10/22/2016 Number of children Unknown 0 10/22/2016 Employment Unknown Retired 10/22/2016 Alcohol history Unknown occasionally drinks alcohol 10/22/2016 Frequency of drinks SNOMED CT: 739606486 10 drinks per week 10/22/2016 Has the patient ever used illegal drugs? Unknown Currently uses illegal drugs 10/22/2016 Allergies, Adverse Reactions, Alerts Substance Reaction Codes Entered Date Inactivated Date Status Naprosyn RxNorm: 7258 10/22/2016 No Inactive Date Active Past Medical History Illness Codes Condition Status Onset Date Resolved Date Essential (primary) hypertension ICD-9: 401.1 ICD-10: I10 Active 11/11/2016 Unknown Mastodynia ICD-9: 611.71 ICD-10: N64.4 Active [...] Problems Condition Codes Effective Dates Condition Status Essential (primary) hypertension ICD-9: 401.1 ICD-10: I10 11/11/2016 Active Mastodynia ICD-9: 611.71 ICD-10: N64.4 11/24/2017 [...] Fill Instructions Lasix 20 mg tablet RxNorm: 775690 TAKE 1 TABLET BY MOUTH EVERY MORNING NEEDED FOR EDEMA 07/17/2017 10/14/2017 Inactive losartan 50 mg-hydrochlorothiazide 12.5 mg tablet RxNorm: 429917 1 Tablet(s) PO daily 06/10/2017 10/07/2017 Inactive Phenergan-Codeine 6.25 mg-10 mg/5 mL syrup RxNorm: 303243 5-10 Milliliter(s) PO Q6 as needed cough 06/10/2017 No Stop Date Active Kenalog 40 mg/mL suspension for injection RxNorm: 0278669 1 Milliliter(s) Inj 06/10/2017 06/10/2017 Inactive atenolol 50 mg tablet RxNorm: 372022 1 Tablet(s) PO daily 201711/25/2017 Active atenolol 50 mg tablet RxNorm: 272605 1 Tablet(s) PO daily 201605/29/2017 Inactive simvastatin 20 mg tablet RxNorm: 041647 TAKE 1 TABLET BY MOUTH EVERY NIGHT AT BEDTIME 02/24/2017 08/22/2017 Inactive Zyrtec 10 mg tablet RxNorm: 2605853 1 TABLET(S) PO DAILY 02/1708/15/2017 Inactive Cartia XT 240 mg capsule,extended release RxNorm: 915978 1 Capsule(s) PO daily 01/20/2017 07/18/2017 Inactive diltiazem 120 mg tablet RxNorm: 646928 1 Tablet(s) PO QHS 11/2606/09/2017 Inactive Vitamin D2 50,000 unit capsule RxNorm: 739500 1 Capsule(s) PO QW 11/15/2016 11/14/2016 Inactive take with vit d 2000 units daily Vitamin D2 50,000 unit capsule RxNorm: 687537 1 Capsule(s) PO QW 11/15/2016 02/06/2017 Inactive take with vit d 2000 units daily Kenalog 40 mg/mL suspension for injection RxNorm: 3452468 1 Milliliter(s) Inj 11/11/2016 11/11/2016 Inactive Pradaxa 150 mg capsule RxNorm: 3585647 TAKE ONE CAPSULE BY MOUTH TWICE DAILY 11/11/2016 06/09/2017 Inactive benazepril 20 mg-hydrochlorothiazide 12.5 mg tablet RxNorm: 432306 1 Tablet(s) PO daily 11/05/2016 06/09/2017 Inactive benazepril 20 mg-hydrochlorothiazide 12.5 mg tablet RxNorm: 496876 1 Tablet(s) PO daily 11/05/2016 11/04/2016 Inactive simvastatin 20 mg tablet RxNorm: 706515 TAKE 1 TABLET BY MOUTH EVERY NIGHT AT BEDTIME 10/24/2016 01/21/2017 Inactive Zyrtec 10 mg tablet RxNorm: 1153101 1 Tablet(s) PO daily 10/2211/20/2016 Inactive Xarelto 20 mg tablet RxNorm: 2113097 1 Tablet(s) PO daily -Managed by Dr. Hurley No Start Date Active Pradaxa 150 mg capsule RxNorm: 7747682 1 Capsule(s) PO BID No Start Date 11/10/2016 Inactive Lasix 20 mg tablet RxNorm: 894728 1 Tablet(s) PO daily as needed No Start Date 07/16/2017 Inactive aspirin 81 mg chewable tablet RxNorm: 847406 1 Tablet(s) PO daily No Start Date 01/20/2017 Inactive Phenergan-Codeine 6.25 mg-10 mg/5 mL syrup RxNorm: 531676 5-10 Milliliter(s) PO Q6 as needed cough No Start Date 2017 Inactive diltiazem 120 mg tablet RxNorm: 040805 1 Tablet(s) PO daily No Start Date 11/25/2016 Inactive atenolol 50 mg tablet RxNorm: 823566 1 Tablet(s) PO daily No Start Date 03/16/2017 Inactive Cartia XT 240 mg capsule,extended release RxNorm: 795561 1 Capsule(s) PO daily No Start Date 01/19/2017 Inactive simvastatin 20 mg tablet RxNorm: 183027 1 Tablet(s) PO QHS No Start Date 10/23/2016 Inactive Medication Administered Medication Codes Instructions Start Date Status Kenalog 40 mg/mL suspension for injection RxNorm: 2295712 1Milliliter 06/10/2017 No longer Active Kenalog 40 mg/mL suspension for injection RxNorm: 4715587 1Milliliter 11/11/2016 No longer Active Immunizations No Immunization data Assessments Condition Codes Effective Dates Essential (primary) hypertension ICD-10: I10 ICD-9: 401.1 11/24/2017 Mastodynia ICD-10: N64.4 ICD-9: 611.71 11/24/2017 Other specified abnormal findings of blood chemistry [...] Lipid Ord30 C/HDL 2.9 Ratio 04/08/2017 Hepatic Kok570 ALBUMIN 4.0 g/dL 04/08/2017 Hepatic Grd130 TPRO 6.6 g/dL 04/08/2017 Hepatic Svu702 GLOB 2.6 g/dL 04/08/2017 Hepatic Icq245 A/G Ratio 1.5 Ratio 04/08/2017 Hepatic Zvw788 ALK PHOS 121 U/L 04/08/2017 Hepatic Xpj679 ALT(SGPT) 57 U/L 04/08/2017 Hepatic Pry676 AST(SGOT) 79 U/L 04/08/2017 Hepatic Tsy098 BILI T 1.1 mg/dL 04/08/2017 Hepatic Gjq064 BILI D 0.3 mg/dL 04/08/2017 Hepatic Bgc593 BILI I 0.8 mg/dL 04/08/2017 Comp Metabolic Tyt414 NA 136 mEq/L 02/12/2017 Comp Metabolic Wmq480 K 4.3 mEq/L 02/12/2017 Comp Metabolic Ggm625 CL 92 mEq/L 02/12/2017 Comp Metabolic Xrl962 CO2 28.0 mEq/L 02/12/2017 Comp Metabolic Anu427 ANION GAP 20 02/12/2017 Comp Metabolic Arp605 GLUCOSE 77 mg/dL 02/12/2017 Comp Metabolic Saa113 Creat 1.0 mg/dL 02/12/2017 Comp Metabolic Fai184 eGFR 83 ml/min/1.73m2 02/12/2017 Comp Metabolic Mwy001 BUN 11 mg/dL 02/12/2017 Comp Metabolic Phg579 B/C Ratio 11.5 Ratio 02/12/2017 Comp Metabolic Jll799 CALCIUM 9.4 mg/dL 02/12/2017 Comp Metabolic Pgx880 ALK PHOS 109 U/L 02/12/2017 Comp Metabolic Jeo176 AST(SGOT) 81 U/L 02/12/2017 Comp Metabolic Dqf615 ALT(SGPT) 43 U/L 02/12/2017 Comp Metabolic Vyc145 BILI T 0.6 mg/dL 02/12/2017 Comp Metabolic Neo285 ALBUMIN 3.9 g/dL 02/12/2017 Comp Metabolic Qzd818 TPRO 6.8 g/dL 02/12/2017 Comp Metabolic Esu102 GLOB 2.9 g/dL 02/12/2017 Comp Metabolic Agi793 A/G Ratio 1.4 Ratio 02/12/2017 Comp Metabolic Tga338 Osmo 270 mOsmo 02/12/2017 Urine Culture Ucult Preliminary NO Growth Day 1 11/30/2016 Urine Culture Ucult Complete NO Growth Day 2 11/30/2016 %Hba1C Owa799 % HbA1c 93140-4 5.5 % 11/11/2016 %Hba1C Jsd875 Gluc Ave 111 mg/dL 11/11/2016 Vitamin D 25 Oh Cjy8333 VITAMIN D, 25 HYDROXY 26.73 ng/mL Comp Metabolic Fra185 NA 132 mEq/L 11/11/2016 Comp Metabolic Bwm311 K 4.1 mEq/L 11/11/2016 Comp Metabolic Xks199 CL 94 mEq/L 11/11/2016 Comp Metabolic Hxl971 CO2 24.0 mEq/L 11/11/2016 Comp Metabolic Prd209 ANION GAP 18 11/11/2016 Comp Metabolic Sba651 GLUCOSE 103 mg/dL 11/11/2016 Comp Metabolic Foh498 Creat 1.4 mg/dL 11/11/2016 Comp Metabolic Ptz585 eGFR 54 ml/min/1.73m2 11/11/2016 Comp Metabolic Mpt995 BUN 22 mg/dL 11/11/2016 Comp Metabolic Dsh174 B/C Ratio 15.7 Ratio 11/11/2016 Comp Metabolic Mpg501 CALCIUM 8.8 mg/dL 11/11/2016 Comp Metabolic Odl611 ALK PHOS 86 U/L 11/11/2016 Comp Metabolic Ldt190 AST(SGOT) 40 U/L 11/11/2016 Comp Metabolic Bdt436 ALT(SGPT) 24 U/L 11/11/2016 Comp Metabolic Sun442 BILI T 0.4 mg/dL 11/11/2016 Comp Metabolic Fks229 ALBUMIN 3.9 g/dL 11/11/2016 Comp Metabolic Gee221 TPRO 6.4 g/dL 11/11/2016 Comp Metabolic Rdp550 GLOB 2.5 g/dL 11/11/2016 Comp Metabolic Rre040 A/G Ratio 1.5 Ratio 11/11/2016 Comp Metabolic Mvf112 Osmo 268 mOsmo 11/11/2016 Cbc With Differential [...] 18.8 % 11/11/2016 Cbc With Differential Ord2 Shannon% 13.5 % 11/11/2016 Cbc With Differential Ord2 [...] 1.32 K/ul 11/11/2016 Cbc With Differential Ord2 Shannon ABS# 1.0 K/ul 11/11/2016 Cbc With Differential [...] Procedure Codes Date THER/PROPH/DIAG INJ SC/IM CPT-4: 08091 06/10/2017 TRIAMCINOLONE ACET INJ NOS CPT-4: J3301 06/10/2017 TRIAMCINOLONE ACET INJ NOS CPT-4: J3301 11/11/2016 Vital Signs Date Vital 11/24/2017 Blood Pressure 1: 112/64 Code : 8480-6 BMI: 31.8 Code : 80240-2 Heart Rate 1 : 97 bpm Height: 5'11" SpO2: 96% Weight: 228 lbs 06/10/2017 Blood Pressure 1: 92/58 Code : 8480-6 BMI: 30.8 Code : 05812-1 Heart Rate 1 : 53 bpm Height: 5'11" SpO2: 98% Temperature: 36.4 (C) / 97.5 (F) Weight: 221 lbs 01/23/2017 Blood Pressure 1: 148/82 Code : 8480-6 BMI: 29.8 Code : 44205-5 Heart Rate 1 : 97 bpm Height: 5'11" SpO2: 97% Weight: 214 lbs 11/28/2016 Blood Pressure 1: 140/62 Code : 8480-6 BMI: 29.7 Code : 46883-2 Heart Rate 1 : 102 bpm Height: 5'11 " SpO2: 97% Weight: 213 lbs 11/11/2016 Blood Pressure 1: 114/60 Code : 8480-6 Heart Rate 1: 62 bpm SpO2: 96% Weight: 213 lbs 8 oz 10/22/2016 Blood Pressure 1: 136/68 Code : 8480-6 BMI: 28.9 Code : 46828-6 Heart Rate 1 : 56 bpm Height: [...] data Encounters Encounter Performer Location Codes Date ([id number]) 15706 EST. PATIENT, LEVEL IV Diagnosis: Essential (primary) hypertension[ICD10: I10] Diagnosis: Mastodynia[ICD10: N64.4] Julianne Paulson MD, [facility] CPT-4: 60101 11/24/2017 ([id number]) 53331 EST. PATIENT, LEVEL III Diagnosis: Essential (primary) hypertension[ICD10: I10] Diagnosis: Chronic atrial fibrillation[ICD10: I48.2] Diagnosis: Adverse effect of diagnostic agents, initial encounter[ICD10: T50.8X5A] Julianne Paulson MD, [facility] CPT-4: 48317 09/2017 65438 EST. PATIENT, LEVEL III Diagnosis: Essential (primary) hypertension[ICD10: I10] Diagnosis: Chronic atrial fibrillation[ICD10: I48.2] Diagnosis: Asymptomatic microscopic hematuria[ICD10: R31.21] [facility] CPT-4: 49368 01/23/2017 ([id number]) 79633 EST. PATIENT, LEVEL III Diagnosis: Asymptomatic microscopic hematuria[ICD10: R31.21] Diagnosis: Chronic atrial fibrillation[ICD10: I48.2] Eva Paulson MD, [facility] CPT-4: 73686 11/28/2016 ([id number] 06404 EST. PATIENT, LEVEL IV Diagnosis: Essential (primary) hypertension[ICD10: I10] Diagnosis: Anemia, unspecified[ICD10: D64.9] Diagnosis: Impaired fasting glucose[ICD10: R73.01] Diagnosis: Vitamin D deficiency, unspecified[ICD10: E55.9] Diagnosis: Chronic atrial fibrillation[ICD10: I48.2] Diagnosis: Other allergic rhinitis[ICD10: J30.89] Eva Paulson MD, [facility] CPT-4: 76090 11/11/2016 OFFICE VISIT, NEW - LEVEL 3 Diagnosis: Other allergic rhinitis[ICD10: J30.89] Diagnosis: Chronic atrial fibrillation[ICD10: I48.2] [facility] CPT-4: 06441 10/22/2016 Plan of Care Planned Activity Notes Codes Status Date Visit Plan: Hypertension - well controlled - continue with current medications, continue with no added salt diet. Pt has been encouraged to exercise daily. The pt has been advised to call the office if there are any acute concerns about change in blood pressure readings at home. Breast pain - bilateral mammograms to be obtained. 11/24/2017 Patient Education: Patient Medication Summary Completed 11/24/2017 Care Plan: Bilateral DIAGNOSTICMAMMOGRAPHYDIGITAL LOINC : 31454-3 Pending 11/24/2017 Appointment: Julianne Paulson WPtel: [address] [place], [place] [phone] (15 min) Moderate 07/01/2017 Patient Education: Patient [...] pill 06/10/2017 Appointment: Julianne Paulson WPtel: [phone] [facility] (15 min) Moderate 06/10/2017 Patient Education: Patient Medication Summary Completed 06/10/2017 Appointment: Evelia Balderrama WPtel: [facility] (30 min) Complex 04/24/2017 Referral: Juan Rothman WPtel: [phone] [facility] Referral Initiated 02/10/2017 Visit Plan: Hypertension - [...] or concerns. 01/23/2017 Appointment: Evelia Balderrama WPtel: [facility] (30 min) Complex 01/23/2017 Patient Education: Patient Medication Summary Completed 01/23/2017 Care Plan: Referral Order SNOMED-CT : 393230018 Cancelled 01/23/2017 Visit Plan: Afib-not rate controlled today-monitor blood pressure and pulse at home x 1 week and call with readings in 1 week-refer to cardiology-he has not seen a certified nurse midwife since afib diagnosis six years ago. Hematuria-suspect due to pradaxa-no longer visible but still microscopic- culture urine-patient to call if blood returns-no changes in medication for now 11/28/2016 Appointment: Eva De La Cruz WPtel: [phone] [place] [phone] (30 min) Complex 11/28/2016 Patient Education: Patient [...] glucose-check Hgb A1C Vitamin D def-check level Mqlk-hnbzbvv-peyr controlled-no change in medications 11/11/2016 Appointment: Eva De La Cruz WPtel: [facility] [place] [phone] (30 min) Complex 11/11/2016 Patient Education: Patient [...] uncontrolled. 10/22/2016 Appointment: Evelia Balderrama WPtel: [phone] [facility] New Patient 10/22/2016 Patient Education: Patient Medication Summary Completed 10/22/2016 Referral: Juan Rothman WPtel: [phone] Referral Initiated Instructions Comment . Allergies - [...] week-refer to cardiology-he has not seen a certified nurse midwife since afib diagnosis six years ago. Hematuria-suspect [...] STOP BENAZEPRILHCTZ to see if cough resolves Hkkzhczkz-hxfde-qziavhx injection today in the office Hx elevated fasting glucose-check Hgb A1C Vitamin D def-check level Lcqs-dvuxjii-copl controlled-no change in medications zantac 150mg - [...]
--- OUTSIDE RECORDS SUMMARY | 2018-06-21 10:01 | XMS REPORT | Continuity of Care Document ---
Author Author [facility] Organization [facility] Address Unknown Phone Unavailable Allergies Active Description Code Type Severity Reaction Onset Reported/Identified Relationship to Patient Clinical Status Yes naproxen [id number] Drug Allergy Unknown RASH 03/04/2017 Medications There is no data. Problems Date Dx Coded Attending Type Code Diagnosis Diagnosed By 07/07/2015 Ot V58.61 07/07/2015 Ot V58.83 07/10/2015 ANDREW WEST INDUSTRIAL PAINTER Ot M19.011 07/20/2015 Ot V58.61 07/20/2015 Ot V58.83 07/20/2015 ANDREW WEST INDUSTRIAL PAINTER Ot M19.011 07/20/2015 ANDREW WEST INDUSTRIAL PAINTER Ot M25.511 07/21/2015 ANDREW WEST INDUSTRIAL PAINTER Ot M25.511 PAIN IN RIGHT SHOULDER 07/25/2015 ANDREW WEST INDUSTRIAL PAINTER Ot M25.511 PAIN IN RIGHT SHOULDER 07/26/2015 ANDREW WEST INDUSTRIAL PAINTER Ot M19.011 PRIMARY OSTEOARTHRITIS, RIGHT SHOULDER 10/11/2015 Ot V58.61 ANTICOAGULANTS,LT,CURRENT USE 10/11/2015 Ot V58.83 ENCOUNTER FOR THERAPEUTIC DRUG MONITORIN 10/11/2015 ANDREW WEST INDUSTRIAL PAINTER Ot M19.011 PRIMARY OSTEOARTHRITIS, RIGHT SHOULDER 10/11/2015 ANDREW WEST INDUSTRIAL PAINTER Ot M25.511 PAIN IN RIGHT SHOULDER 10/12/2015 LONDON RIVERS MD Ot Z01.810 ENCOUNTER FOR PREPROCEDURAL CARDIOVASCUL 10/12/2015 LONDON IRVERS MD Ot Z01.812 ENCOUNTER FOR PREPROCEDURAL LABORATORY E 10/17/2015 LONDON RVIERS MD Ot Z01.810 ENCOUNTER FOR PREPROCEDURAL CARDIOVASCUL 10/17/2015 LONDON RIVERS MD Ot Z01.812 ENCOUNTER FOR PREPROCEDURAL LABORATORY E 11/02/2015 BG RYAN MD Ot M75.101 UNSP ROTATR-CUFF TEAR/RUPTR OF RIGHT MAYRA 11/02/2015 BG RYAN MD Ot Z01.818 ENCOUNTER FOR OTHER PREPROCEDURAL EXAMIN 11/03/2015 BG RYAN MD Ot M75.101 UNSP ROTATR-CUFF TEAR/RUPTR OF RIGHT MAYRA 11/03/2015 BG RYAN MD Ot Z01.818 ENCOUNTER FOR OTHER PREPROCEDURAL EXAMIN 11/08/2015 BG RYAN MD Ot I10 ESSENTIAL (PRIMARY) HYPERTENSION 11/08/2015 BG RYAN MD Ot I48.91 UNSPECIFIED ATRIAL FIBRILLATION 11/08/2015 BG RYAN MD Ot M75.101 UNSP ROTATR-CUFF TEAR/RUPTR OF RIGHT MAYRA 11/08/2015 BG RYAN MD Ot S43.431A SUPERIOR GLENOID LABRUM LESION OF RIGHT 11/08/2015 BG RYAN MD Ot Z11.2 ENCOUNTER FOR SCREENING FOR OTHER BACTER 11/09/2015 BG RYAN MD Ot I10 ESSENTIAL (PRIMARY) HYPERTENSION 11/09/2015 BG RYAN MD Ot I48.91 UNSPECIFIED ATRIAL FIBRILLATION 11/09/2015 BG RYAN MD Ot M75.101 UNSP ROTATR-CUFF TEAR/RUPTR OF RIGHT MAYRA 11/09/2015 BG RYAN MD Ot S43.431A SUPERIOR GLENOID LABRUM LESION OF RIGHT 11/09/2015 BG RYAN MD Ot Z11.2 ENCOUNTER FOR SCREENING FOR OTHER BACTER 11/16/2015 LONDON RIVERS MD Ot Z01.810 ENCOUNTER FOR PREPROCEDURAL CARDIOVASCUL 11/16/2015 LONDON RIVERS MD Ot Z01.812 ENCOUNTER FOR PREPROCEDURAL LABORATORY E 08/31/2016 MARCELLO KAUR Ot E86.9 VOLUME DEPLETION, UNSPECIFIED 08/31/2016 MARCELLO KAUR Ot I25.2 OLD MYOCARDIAL INFARCTION 08/31/2016 MARCELLO KAUR Ot I48.2 CHRONIC ATRIAL FIBRILLATION 08/31/2016 MARCELLO KAUR Ot R22.43 LOCALIZED SWELLING, MASS AND LUMP, LOWER 08/31/2016 MARCELLO KAUR Ot R31.29 OTHER MICROSCOPIC HEMATURIA 08/31/2016 MARCELLO KAUR Ot R60.0 LOCALIZED EDEMA 08/31/2016 MARCELLO KAUR Ot Z79.84 [facility]CI (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 OF ORAL HYPOGLYC 08/31/2016 MARCELLO KAUR Ot Z79.899 OTHER [facility]CI (CURRENT) DRUG THERAPY 08/31/2016 ANDREW WEST INDUSTRIAL PAINTER Ot M19.011 PRIMARY OSTEOARTHRITIS, RIGHT SHOULDER 08/31/2016 ANDREW WEST INDUSTRIAL PAINTER Ot M25.511 PAIN IN RIGHT SHOULDER 08/31/2016 LONDON RIVERS MD Ot Z01.810 ENCOUNTER FOR PREPROCEDURAL CARDIOVASCUL 08/31/2016 LONDON RIVERS MD Ot Z01.812 ENCOUNTER FOR PREPROCEDURAL LABORATORY E 09/05/2016 LONDON RIVERS MD Ot M47.816 SPONDYLOSIS W/O MYELOPATHY OR RADICULOPA 09/24/2016 LONDON RIVERS MD Ot M47.816 SPONDYLOSIS W/O MYELOPATHY OR RADICULOPA 02/25/2017 JEREMY JUDGE MD Ot N20.1 CALCULUS OF URETER 02/25/2017 JEREMY JUDGE MD Ot N20.1 CALCULUS OF URETER 02/25/2017 JEREMY JUDGE MD Ot Z53.29 PROC/TRTMT NOT CRD OUT BEC PT DECISION F 02/26/2017 JEREMY JUDGE MD Ot N20.1 CALCULUS OF URETER 02/26/2017 JEREMY JUDGE MD Ot N20.1 CALCULUS OF URETER 02/26/2017 JEREMY JUDGE MD Ot Z53.29 PROC/TRTMT NOT CRD OUT BEC PT DECISION F 02/26/2017 JEREMY JUDGE MD Ot N20.1 CALCULUS OF URETER 02/26/2017 JEREMY JUDGE MD Ot N20.1 CALCULUS OF URETER 02/26/2017 JEREMY JUDGE MD Ot Z01.818 ENCOUNTER FOR OTHER PREPROCEDURAL EXAMIN 02/28/2017 JEREMY JUDGE MD Ot N20.1 CALCULUS OF URETER 02/28/2017 JEREMY JUDGE MD Ot Z01.818 ENCOUNTER FOR OTHER PREPROCEDURAL EXAMIN 03/04/2017 JEREMY JUDGE MD Ot I10 ESSENTIAL (PRIMARY) HYPERTENSION 03/04/2017 JEREMY JUDGE MD Ot I48.91 UNSPECIFIED ATRIAL FIBRILLATION 03/04/2017 JEREMY JUDGE MD, Ot M16.12 UNILATERAL PRIMARY OSTEOARTHRITIS, LEFT 03/04/2017 JEREMY JUDGE MD Ot N13.5 CROSSING VESSEL AND STRICTURE OF URETER 03/04/2017 JEREMY JUDGE MD Ot N20.2 CALCULUS OF KIDNEY WITH CALCULUS OF URET 03/04/2017 JEREMY JUDGE MD, Ot N40.0 BENIGN PROSTATIC HYPERPLASIA WITHOUT LOW 03/04/2017 JEREMY JUDGE MD, Ot 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.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 03/04/2017 JEREMY JUDGE MD, Ot Z79.899 OTHER [facility] (CURRENT) DRUG THERAPY 03/04/2017 JEREMY JUDGE MD, Ot Z87.891 PERSONAL HISTORY OF NICOTINE DEPENDENCE 03/06/2017 JEREMY JUDGE MD Ot I10 ESSENTIAL (PRIMARY) HYPERTENSION 03/06/2017 JEREMY JUDGE MD, Ot I48.91 UNSPECIFIED ATRIAL FIBRILLATION 03/06/2017 JEREMY JUDGE MD, Ot M16.12 UNILATERAL PRIMARY OSTEOARTHRITIS, LEFT 03/06/2017 JEREMY JUDGE MD, Ot N13.5 CROSSING VESSEL AND STRICTURE OF URETER 03/06/2017 JEREMY JUDGE MD, Ot N20.2 CALCULUS OF KIDNEY WITH CALCULUS OF URET 03/06/2017 JEREMY JUDGE MD, Ot N40.0 BENIGN PROSTATIC HYPERPLASIA WITHOUT LOW 03/06/2017 JEREMY JUDGE MD, Ot Z79.82 [facility]CI (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 OF ASPIRIN 03/06/2017 JEREMY JUDGE MD, Ot Z79.899 OTHER SOFTWARE DEVELOPMENT LEADER (CURRENT) DRUG THERAPY 03/06/2017 JEREMY JUDGE MD, Ot Z87.891 PERSONAL HISTORY OF NICOTINE DEPENDENCE 03/07/2017 JEREMY JUDGE MD, Ot K76.0 FATTY (CHANGE OF) LIVER, NOT ELSEWHERE C 03/07/2017 JEREMY JUDGE MD, Ot N13.2 HYDRONEPHROSIS WITH RENAL AND URETERAL C 03/07/2017 JEREMY JUDGE MD, Ot N20.0 CALCULUS OF KIDNEY 03/18/2017 JEREMY JUDGE MD, Ot N20.1 CALCULUS OF URETER 03/19/2017 JEREMY JUDGE MD Ot I10 ESSENTIAL (PRIMARY) HYPERTENSION 03/19/2017 JEREMY JUDGE MD Ot I48.91 UNSPECIFIED ATRIAL FIBRILLATION 03/19/2017 JEREMY JUDGE MD, Ot M16.12 UNILATERAL PRIMARY OSTEOARTHRITIS, LEFT 03/19/2017 JEREMY JUDGE MD, Ot N13.5 CROSSING VESSEL AND STRICTURE OF URETER 03/19/2017 JEREMY JUDGE MD, Ot N20.2 CALCULUS OF KIDNEY WITH CALCULUS OF URET 03/19/2017 JEREMY JUDGE MD, Ot N40.0 BENIGN PROSTATIC HYPERPLASIA WITHOUT LOW 03/19/2017 JEREMY JUDGE MD Ot Z79.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 03/19/2017 JEREMY JUDGE MD, Ot Z79.899 OTHER [facility] (CURRENT) DRUG THERAPY 03/19/2017 JEREMY JUDGE MD, Ot Z87.891 PERSONAL HISTORY OF NICOTINE DEPENDENCE 03/21/2017 JEREMY JUDGE MD Ot K76.0 FATTY (CHANGE OF) LIVER, NOT ELSEWHERE C 03/21/2017 JEREMY JUDGE MD, Ot N13.2 HYDRONEPHROSIS WITH RENAL AND URETERAL C 03/21/2017 JEREMY JUDGE MD, Ot N20.0 CALCULUS OF KIDNEY 04/03/2017 JEREMY JUDGE MD, Ot N20.1 CALCULUS OF URETER 11/25/2017 CASTILLO GOLDSTEIN, RUTHIE Abebe Ot N64.4 MASTODYNIA 12/10/2017 ANDREW WEST APRN Ot M19.011 PRIMARY OSTEOARTHRITIS, RIGHT SHOULDER 12/10/2017 ANDREW WEST APRN Ot M25.511 PAIN IN RIGHT SHOULDER 12/10/2017 LONDON RIVERS MD Ot Z01.810 ENCOUNTER FOR PREPROCEDURAL CARDIOVASCUL 12/10/2017 LONDON RIVERS MD Ot Z01.812 ENCOUNTER FOR PREPROCEDURAL LABORATORY E 12/10/2017 LONDON RIVERS MD Ot M47.816 SPONDYLOSIS W/O MYELOPATHY OR RADICULOPA 12/10/2017 JEREMY JUDGE MD Ot K76.0 FATTY (CHANGE OF) LIVER, NOT ELSEWHERE C 12/10/2017 JEREMY JUDGE MD Ot N13.2 HYDRONEPHROSIS WITH RENAL AND URETERAL C 12/10/2017 JEREMY JUDGE MD Ot N20.0 CALCULUS OF KIDNEY 12/10/2017 JEREMY JUDGE MD Ot N20.1 CALCULUS OF URETER 12/10/2017 CASTILLO GOLDSTEIN, RUTHIE A Ot N64.4 MASTODYNIA 12/11/2017 CASTILLO GOLDSTEIN, RUTHIE A Ot N63.41 UNSPECIFIED LUMP IN RIGHT BREAST, SUBARE 12/11/2017 CASTILLO GOLDSTEIN, RUTHIE A Ot N63.42 UNSPECIFIED LUMP IN LEFT BREAST, SUBAREO 12/11/2017 CASTILLO GOLDSTEIN, RUTHIE A Ot N64.4 MASTODYNIA 01/02/2018 CASTILLO GOLDSTEIN, RUTHIE A Ot N63.41 UNSPECIFIED LUMP IN RIGHT BREAST, SUBARE 01/02/2018 CASTILLO GOLDSTEIN, RUTHIE A Ot N63.42 UNSPECIFIED LUMP IN LEFT BREAST, SUBAREO 01/02/2018 CASTILLO GOLDSTEIN, RUTHIE A Ot N64.4 MASTODYNIA 01/22/2018 CASTILLO GOLDSTEIN, RUTHIE A Ot N63.41 UNSPECIFIED LUMP IN RIGHT BREAST, SUBARE 01/22/2018 CASTILLO GOLDSTEIN, RUTHIE A Ot N63.42 UNSPECIFIED LUMP IN LEFT BREAST, SUBAREO 01/22/2018 CASTILLO GOLDSTEIN, RUTHIE A Ot N64.4 MASTODYNIA 02/12/2018 ANDREW WEST INDUSTRIAL PAINTER Ot M19.011 PRIMARY OSTEOARTHRITIS, RIGHT SHOULDER 02/12/2018 ANDREW WEST INDUSTRIAL PAINTER Ot M25.511 PAIN IN RIGHT SHOULDER 02/12/2018 LONDON RIVERS MD Ot Z01.810 ENCOUNTER FOR PREPROCEDURAL CARDIOVASCUL 02/12/2018 LONDON RIVERS MD Ot Z01.812 ENCOUNTER FOR PREPROCEDURAL LABORATORY E 02/12/2018 LONDON RIVERS MD Ot M47.816 SPONDYLOSIS W/O MYELOPATHY OR RADICULOPA 02/12/2018 JEREMY JUDGE MD Ot K76.0 FATTY (CHANGE OF) LIVER, NOT ELSEWHERE C 02/12/2018 JEREMY JUDGE MD Ot N13.2 HYDRONEPHROSIS WITH RENAL AND URETERAL C 02/12/2018 JEREMY JUDGE MD Ot N20.0 CALCULUS OF KIDNEY 02/12/2018 JEREMY JUDGE MD Ot N20.1 CALCULUS OF URETER 02/12/2018 RUTHIE CHONG MD Ot N63.41 UNSPECIFIED LUMP IN RIGHT BREAST, SUBARE 02/12/2018 RUTHIE CHONG MD Ot N63.42 UNSPECIFIED LUMP IN LEFT BREAST, SUBAREO 02/12/2018 RUTHIE CHONG MD Ot N64.4 MASTODYNIA 02/12/2018 RUTHIE CHONG MD Ot R94.5 ABNORMAL RESULTS OF LIVER FUNCTION STUDI 02/13/2018 RUTHIE CHONG MD Ot R73.01 IMPAIRED FASTING GLUCOSE 02/16/2018 RUTHIE CHONG MD Ot F10.20 ALCOHOL DEPENDENCE, UNCOMPLICATED 02/16/2018 RUTHIE CHONG MD Ot N13.2 HYDRONEPHROSIS WITH RENAL AND URETERAL C 02/16/2018 RUTHIE CHONG MD Ot R18.8 OTHER ASCITES 02/16/2018 RUTHIE CHONG MD Ot R63.5 ABNORMAL WEIGHT GAIN 02/16/2018 RUTHIE CHONG MD Ot R94.5 ABNORMAL RESULTS OF LIVER FUNCTION STUDI 02/20/2018 RUTHIE CHONG MD Ot R18.8 OTHER ASCITES 02/20/2018 RUTHIE CHONG MD Ot R73.01 IMPAIRED FASTING GLUCOSE 03/11/2018 RUTHIE CHONG MD Ot R18.8 OTHER ASCITES 04/09/2018 RUTHIE CHONG MD Ot R18.8 OTHER ASCITES 04/09/2018 RUTHIE CHONG MD Ot R73.01 IMPAIRED FASTING GLUCOSE 06/12/2018 RUTHIE CHONG MD Ot 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 Results Test Result Range Methicillin resistant Staphylococcus aureus (MRSA) screening culture - 10:00 Methicillin resistant Staphylococcus aureus (MRSA) screening culture NEG NRG Complete urinalysis with reflex to culture - 08/31/16 16:50 Urine color determination YELLOW NRG Urine clarity determination CLEAR NRG Urine pH measurement by test strip 6 5-9 Specific gravity of urine by test strip 1.020 1.016- 1.022 Urine protein assay by test strip, semi-quantitative 1+ NEGATIVE Urine glucose detection by automated test strip NEGATIVE NEGATIVE Erythrocytes detection in urine sediment by light microscopy 5+ NEGATIVE Urine ketones detection by automated test strip 1+ NEGATIVE Urine nitrite detection by test strip NEGATIVE NEGATIVE Urine total bilirubin detection by test strip NEGATIVE NEGATIVE Urine urobilinogen measurement by automated test strip (mass/volume) NORMAL NORMAL Urine leukocyte esterase detection by dipstick 1+ NEGATIVE Automated urine sediment erythrocyte count by microscopy (number/high power field) [HPF] NRG Automated urine sediment leukocyte count by microscopy (number/high power field ) [HPF] NRG Bacteria detection in urine sediment by light microscopy FEW NRG Squamous epithelial cells detection in urine sediment by light microscopy RARE NRG Crystals detection in urine sediment by light microscopy NONE NRG Casts detection in urine sediment by light microscopy PRESENT NRG Mucus detection in urine sediment by light microscopy NEGATIVE NRG Complete urinalysis with reflex to culture NO NRG Hyaline casts detection in urine sediment by light microscopy 5-10 NRG Complete blood count (CBC) with automated white blood cell (WBC) differential - 08/31/16 16:54 Blood leukocytes automated count (number/volume) 6.8 10*3/uL 4.3-11.0 Blood erythrocytes automated count (number/volume) 3.40 10*6/uL 4.35-5.85 Venous blood hemoglobin measurement (mass/volume) 11.3 g/dL 13.3-17.7 Blood hematocrit (volume fraction) 34 % 40-54 Automated erythrocyte mean corpuscular volume 100 [foz_us] 80-99 Automated erythrocyte mean corpuscular hemoglobin (mass per erythrocyte) 33 pg 25-34 Automated erythrocyte mean corpuscular hemoglobin concentration measurement ( mass/volume) 33 g/dL 32-36 Automated erythrocyte distribution width ratio 15.4 % 10.0-14.5 Automated blood platelet count (count/volume) 240 10*3/uL 130-400 Automated blood platelet mean volume measurement 9.3 [foz_us] 7.4-10.4 Automated blood neutrophils/100 leukocytes 65 % 42-75 Automated blood lymphocytes/100 leukocytes 24 % 12-44 Blood monocytes/100 leukocytes 10 % 0-12 Automated blood eosinophils/100 leukocytes 1 % 0-10 Automated blood basophils/100 leukocytes 1 % 0-10 Blood neutrophils automated count (number/volume) 4.5 10*3 1.8-7.8 Blood lymphocytes automated count (number/volume) 1.6 10*3 1.0-4.0 Blood monocytes automated count (number/volume) 0.7 10*3 0.0-1.0 Automated eosinophil count 0.0 10*3/uL 0.0-0.3 Automated blood basophil count (count/volume) 0.0 10*3/uL 0.0-0.1 PT panel in platelet poor plasma by coagulation assay - 08/31/16 16:54 Prothrombin time (PT) in platelet poor plasma by coagulation assay 18.2 s 12.2-14.7 INR in platelet poor plasma or blood by coagulation assay 1.5 0.8-1.4 Activated partial thromboplastin time (aPTT) in platelet poor plasma bycoagulation assay - 08/31/16 16:54 Activated partial thromboplastin time (aPTT) in platelet poor plasma bycoagulation assay 58 s 24-35 Comprehensive metabolic panel - 08/31/16 16:54 Serum or plasma sodium measurement (moles/volume) 142 mmol/L 135-145 Serum or plasma potassium measurement (moles/volume) 3.9 mmol/L 3.6-5.0 Serum or plasma chloride measurement (moles/volume) 103 mmol/L 98-107 Carbon dioxide 23 mmol/L 21-32 Serum or plasma anion gap determination (moles/volume) 16 mmol/L 5-14 Serum or plasma urea nitrogen measurement (mass/volume) 21 mg/dL 7-18 Serum or plasma creatinine measurement (mass/volume) 1.03 mg/dL 0.60-1.30 Serum or plasma urea nitrogen/creatinine mass ratio 20 NRG Serum or plasma creatinine measurement with calculation of estimated glomerular filtration rate > NRG Serum or plasma glucose measurement (mass/volume) 101 mg/dL 70-105 Serum or plasma calcium measurement (mass/volume) 9.1 mg/dL 8.5-10.1 Serum or plasma total bilirubin measurement (mass/volume) 0.7 mg/dL 0.1-1.0 Serum or plasma alkaline phosphatase measurement (enzymatic activity/volume) 117 U/L 40-136 Serum or plasma aspartate aminotransferase measurement (enzymatic activity/ volume) 80 U/L 5-34 Serum or plasma alanine aminotransferase measurement (enzymatic activity/volume ) 39 U/L 0-55 Serum or plasma protein measurement (mass/volume) 7.2 g/dL 6.4-8.2 Serum or plasma albumin measurement (mass/volume) 4.2 g/dL 3.2-4.5 Magnesium - 08/31/16 16:54 Magnesium 1.8 mg/dL 1.8-2.4 Serum or plasma lithium measurement (moles/volume) - 08/31/16 16:54 BNP level 355.7 pg/mL <100.0 Serum or plasma troponin i.cardiac measurement (mass/volume) - 08/31/16 16:54 Serum or plasma troponin i.cardiac measurement (mass/volume) < ng/ mL <0.30 Serum or plasma thyrotropin measurement by detection limit <=0.05 miu/l (units/ volume) - 08/31/16 16:54 Serum or plasma thyrotropin measurement by detection limit <=0.05 miu/l (units/ volume) 1.03 u[iU]/mL 0.35-4.94 Methicillin resistant Staphylococcus aureus (MRSA) screening culture - 07:30 Methicillin resistant Staphylococcus aureus (MRSA) screening culture NEG NRG Complete blood count (CBC) with automated white blood cell (WBC) differential - 02/11/18 12:35 Blood leukocytes automated count (number/volume) 12.2 10*3/uL 4.3-11.0 Blood erythrocytes automated count (number/volume) 3.31 10*6/uL 4.35-5.85 Venous blood hemoglobin measurement (mass/volume) 9.1 g/dL 13.3-17.7 Blood hematocrit (volume fraction) 28 % 40-54 Automated erythrocyte mean corpuscular volume 84 [foz_us] 80-99 Automated erythrocyte mean corpuscular hemoglobin (mass per erythrocyte) 27 pg 25-34 Automated erythrocyte mean corpuscular hemoglobin concentration measurement ( mass/volume) 33 g/dL 32-36 Automated erythrocyte distribution width ratio 16.0 % 10.0-14.5 Automated blood platelet count (count/volume) 485 10*3/uL 130-400 Automated blood platelet mean volume measurement 9.7 [foz_us] 7.4-10.4 Automated blood neutrophils/100 leukocytes 81 % 42-75 Automated blood lymphocytes/100 leukocytes 8 % 12-44 Blood monocytes/100 leukocytes 11 % 0-12 Automated blood eosinophils/100 leukocytes 0 % 0-10 Automated blood basophils/100 leukocytes 0 % 0-10 Blood neutrophils automated count (number/volume) 9.9 10*3 1.8-7.8 Blood lymphocytes automated count (number/volume) 1.0 10*3 1.0-4.0 Blood monocytes automated count (number/volume) 1.3 10*3 0.0-1.0 Automated eosinophil count 0.0 10*3/uL 0.0-0.3 Automated blood basophil count (count/volume) 0.1 10*3/uL 0.0-0.1 Comprehensive metabolic panel - 02/11/18 12:35 Serum or plasma potassium measurement (moles/volume) 5.5 mmol/L 3.6-5.0 Serum or plasma chloride measurement (moles/volume) 92 mmol/L 98-107 Carbon dioxide 20 mmol/L 21-32 Serum or plasma anion gap determination (moles/volume) 11 mmol/L 5-14 Serum or plasma urea nitrogen measurement (mass/volume) 18 mg/dL 7-18 Serum or plasma creatinine measurement (mass/volume) 1.65 mg/dL 0.60-1.30 Serum or plasma urea nitrogen/creatinine mass ratio 11 NRG Serum or plasma creatinine measurement with calculation of estimated glomerular filtration rate 42 NRG Serum or plasma glucose measurement (mass/volume) 129 mg/dL 70-105 Serum or plasma calcium measurement (mass/volume) 9.0 mg/dL 8.5-10.1 Serum or plasma total bilirubin measurement (mass/volume) 0.9 mg/dL 0.1-1.0 Serum or plasma alkaline phosphatase measurement (enzymatic activity/volume) 313 U/L 40-136 Serum or plasma aspartate aminotransferase measurement (enzymatic activity/ volume) 75 U/L 5-34 Serum or plasma alanine aminotransferase measurement (enzymatic activity/volume ) 26 U/L 0-55 Serum or plasma protein measurement (mass/volume) 6.9 g/dL 6.4-8.2 Serum or plasma albumin measurement (mass/volume) 3.2 g/dL 3.2-4.5 CALCIUM CORRECTED 9.6 mg/dL 8.5-10.1 Serum hepatitis C virus antibody assay (units/volume) - 02/11/18 12:35 Serum hepatitis C virus antibody detection Non-Reactive Non-Reactive Serum or plasma glucose measurement (mass/volume) - 02/13/18 11:10 Serum or plasma glucose measurement (mass/volume) 104 mg/dL 70-105 Lactate dehydrogenase 1 [enzymatic activity/volume] in serum or plasma - 11:10 Lactate dehydrogenase 1 [enzymatic activity/volume] in serum or plasma 246 U/L 125-220 Serum or plasma amylase measurement (enzymatic activity/volume) - 02/13/18 11: 10 Serum or plasma amylase measurement (enzymatic activity/volume) 55 U /L 25-125 Serum or plasma ethanol measurement (mass/volume) - 02/13/18 11:10 Serum or plasma ethanol measurement (mass/volume) 44 mg/dL <10 Body fluid cell count - 02/13/18 14:00 Specimen source identification of body fluid PERITON NRG Evaluation of color of body fluid YELLOW NRG Determination of appearance of body fluid SLT CLDY NRG Body fluid leukocytes count (number/volume) 120 /uL NRG Body fluid erythrocytes count (number/volume) 48 /uL NRG Manual body fluid polymorphonuclear cells/100 leukocytes 9 % NRG Manual body fluid mononuclear cells/100 leukocytes 2 % NRG Manual body fluid lymphocytes/100 leukocytes 40 % NRG Other cells/100 leukocytes in body fluid by manual count 49 % NRG Glucose body fluid - 02/13/18 14:00 Glucose body fluid 93 mg/dL NRG Body fluid total protein measurement - 02/13/18 14:00 Body fluid total protein measurement 1.8 g/dL NRG Body fluid/serum or plasma lactate dehydrogenase (LDH) ratio - 02/13/18 14:00 Body fluid/serum or plasma lactate dehydrogenase (LDH) ratio 78 U/L NRG Amylase body fluid - 02/13/18 14:00 Amylase body fluid 25 U/L NRG Creatinine body fluid - 02/13/18 14:00 Creatinine body fluid 1.27 mg/dL NRG Bacteria identification in isolate by anaerobe culture - 02/13/18 14:00 Bacteria identification in isolate by anaerobe culture NOANA NRG Gram stain microscopy - 02/13/18 14:00 Gram stain microscopy GRAM STAIN PERFORMED AT [facility]. NRG Bacterial body fluid culture - 02/13/18 14:00 Bacterial body fluid culture NG NRG C FUNGUS SPUTUM FLUID TISSUE - 02/13/18 14:00 C FUNGUS SPUTUM FLUID TISSUE NG NRG PT panel in platelet poor plasma by coagulation assay - 06/12/18 08:30 Prothrombin time (PT) in platelet poor plasma by coagulation assay 13.8 s 12.2-14.7 INR in platelet poor plasma or blood by coagulation assay 1.1 0.8-1.4 Encounters ACCT No. Visit Date/Time Discharge Status Pt. Type Provider Facility Loc./Unit Complaint [id number] 06/12/2018 08:22:00 06/12/2018 23:59:59 CLS Outpatient RUTHIE CHONG MD [facility] RAD ABD ASCITES [id number] 04/30/2018 11:12:00 04/30/2018 23:59:59 CLS Outpatient RUTHIE CHONG MD [facility] RAD ABDOMINAL ASCITES [id number] 03/09/2018 10:06:00 03/09/2018 23:59:59 CLS Outpatient RUTHIE CHONG MD [facility] RAD ASCITES [id number] 02/13/2018 10:42:00 02/13/2018 23:59:59 CLS Outpatient RUTHIE CHONG MD [facility] RAD ASCITES [id number] 02/11/2018 12:17:00 02/11/2018 23:59:59 CLS Outpatient RUTHIE CHONG MD [facility] RAD ASCITES,ALCOHOLISM, WT GAIN [id number] 12/10/2017 12:25:00 12/10/2017 23:59:59 CLS Outpatient RUTHIE CHONG MD [facility] RAD BILAT BREAST PAIN [id number] 05/01/2017 09:00:00 05/01/2017 23:59:59 CLS Preadmit Nicola PHILLIP MD [facility] CATH AFIB AND RVR [id number] 03/04/2017 06:53:00 03/04/2017 10:54:00 DIS Outpatient JEREMY JUDGE MD [facility] SDC LEFT URETERAL STONE [id number] 02/26/2017 13:00:00 02/26/2017 13:04:00 DIS Outpatient JEREMY JUDGE MD [facility] PREOP LEFT URETERAL STONE [id number] 02/24/2017 14:58:00 02/24/2017 23:59:59 CLS Outpatient JEREMY JUDGE MD [facility] RAD URETERAL STONE [id number] 02/14/2017 13:13:00 02/14/2017 23:59:59 CLS Outpatient JEREMY JUDGE MD [facility] RAD HEMATURIA [id number] 09/03/2016 13:55:00 09/03/2016 23:59:59 CLS Outpatient LONDON RIVERS MD [facility] RAD CHRONIC BACK PAIN [id number] 08/31/2016 15:20:00 08/31/2016 18:06:00 DIS Emergency MARCELLO KAUR [facility] ER SWELLING IN FEET [id number] 11/08/2015 09:42:00 11/08/2015 15:07:00 DIS Outpatient BG RYAN MD [facility] SDC RIGHT TORN ROTATOR CUFF [id number] 11/02/2015 10:28:00 11/02/2015 10:55:00 DIS Outpatient BG RYAN MD [facility] PREOP RIGHT TORN ROTATOR CUFF [id number] 10/11/2015 13:09:00 10/11/2015 23:59:59 CLS Outpatient LONDON RIVERS MD [facility] CARD R RTC CUFF SURGERY CLEARANCE [id number] 07/20/2015 09:18:00 07/20/2015 23:59:59 CLS Outpatient ANDREW WEST APRN [facility] RAD RT ARM SHOULDER PAIN [id number] 07/07/2015 14:42:00 07/07/2015 23:59:59 CLS Outpatient ANDREW WEST INDUSTRIAL PAINTER [facility] RAD RIGHT UPPER ARM SHOULDER PAIN [id number] 01/11/2013 09:16:00 01/11/2013 23:59:59 CLS Outpatient [id number] 06/21/2010 12:30:00 Document Registration [id number] 01/22/2017 23:27:53 01/22/2017 23:59:59 CLS Outpatient [id number] 03/18/2018 14:00:00 03/18/2018 23:59:59 CLS Outpatient [facility]
[2018-06-21] MEDS ORDERED: NS IV 1000 ML 1,000 ML IV SCH (10:05)
[2018-06-21 10:22] LABS: ABG OXYGEN SATURATION 100 % (94-100); ABG PCO2 23 MMHG (35-45); ABG PO2 192 MMHG (79-93); ABG TCO2 14.4 MMOL/L (21.0-31.0)
[2018-06-21 10:29] LABS: BASOPHILS % (AUTO) 0 % (0-10); EOSINOPHILS % (AUTO) 0 % (0-10); HEMATOCRIT 24 % (40-54); HEMOGLOBIN 7.9 G/DL (13.3-17.7); LYMPHOCYTES # (AUTO) 0.5 X 10^3 (1.0-4.0); LYMPHOCYTES % (AUTO) 7 % (12-44); MEAN CORPUSCULAR HEMOGLOBIN 26 PG (25-34); MEAN CORPUSCULAR HGB CONC 33 G/DL (32-36); MEAN CORPUSCULAR VOLUME 77 FL (80-99); MONOCYTES # (AUTO) 0.4 X 10^3 (0.0-1.0); MONOCYTES % (AUTO) 5 % (0-12); NEUTROPHILS % (AUTO) 88 % (42-75); PLATELET COUNT 257 10^3/uL (130-400); WHITE BLOOD COUNT 6.8 10^3/uL (4.3-11.0)
[2018-06-21 10:31] LABS: ALLENS TEST YES-POS; INSPIRED O2 15; VENTILATOR NO
[2018-06-21 10:32] LABS: PATIENT TEMP 100.9
--- NOTE | 2018-06-21 10:32 | Diagnostic Imaging Report ---
INDICATION: Weakness, shortness of air. TECHNIQUE: Single view chest 10:11 AM. CORRELATION STUDY: 08/31/2016 FINDINGS: Heart size enlarged but stable. Vascular is slightly increased from prior study. There is new consolidation about the right lung base to lesser degree right mid lung field. Prominent interstitial markings favoring component of edema as well. Corinne screw over the right humeral head. IMPRESSION: 1. Asymmetric density right lung base favoring probable pneumonia. Followup imaging is recommended. 2. There is also presence of a component congestive changes with prominent vasculature and interstitial markings. Dictated by: Dictated on workstation # [id number]
[2018-06-21 10:41] LABS: CLARITY,URINE CLEAR; COLOR,URINE YELLOW; GLUCOSE, URINE (UA) NEGATIVE (NEGATIVE); KETONES,URINE 1+ (NEGATIVE); LEUKOCYTE ESTERASE ,URINE 1+ (NEGATIVE); NITRITE,URINE NEGATIVE (NEGATIVE); PH,URINE 5 (5-9); PROTEIN,URINE 2+ (NEGATIVE); UROBILINOGEN,URINE 1 MG/DL (NORMAL)
[2018-06-21 10:42] LABS: ALBUMIN 2.4 GM/DL (3.2-4.5); BILIRUBIN,TOTAL 0.8 MG/DL (0.1-1.0); CALCIUM 7.8 MG/DL (8.5-10.1); CREATININE SERUM 2.31 MG/DL (0.60-1.30); POTASSIUM 4.7 MMOL/L (3.6-5.0); TOTAL PROTEIN 5.7 GM/DL (6.4-8.2)
[2018-06-21 10:44] LABS: INR 1.2 (0.8-1.4); PROTHROMBIN TIME PATIENT 15.5 SEC (12.2-14.7)
--- NOTE | 2018-06-21 10:53 | NUR ---
KEY DAVIS AT PT BEDSIDE ASSISTING WITH CENTRAL LINE PALCEMENT BY DR ASHLEY.
--- NOTE | 2018-06-21 10:55 | NUR ---
DR. IQBAL INFORMED THIS WILL BE PT 4 L OF FLUIDS INCLUDING EMS 1 L ADMINISTRATION IN ROUTE. NO NEW ORDERS AT THIS TIME. WILL CONTINUE TO MONITOR PT.
[2018-06-21 10:59] LABS: ANISOCYTOSIS MODERATE; BAND NEUTROPHILS 35 %; BASOPHILS % (MANUAL) 0 %; EOSINOPHILS % (MANUAL) 0 %; HYPOCHROMASIA MODERATE; LYMPHOCYTES % (MANUAL) 3 %; METAMYELOCYTES % 4 %; MICROCYTOSIS SLIGHT; MONOCYTES % (MANUAL) 4 %; MYELOCYTES % 1 %; NEUTROPHILS % (MANUAL) 53 %; NUCLEATED RED BLOOD CELLS 2
[2018-06-21 11:00] LABS: TARGET CELLS SLIGHT
[2018-06-21] MEDS ORDERED: NS IV 1000 ML 1,000 ML IV ONE (11:00)
[2018-06-21 11:05] LABS: BILIRUBIN,URINE 1+ (NEGATIVE); RBC,URINE 0-2 /HPF
[2018-06-21 11:06] LABS: BACTERIA,URINE MODERATE /HPF
--- NOTE | 2018-06-21 11:28 | Diagnostic Imaging Report ---
INDICATION: Line placement. TECHNIQUE: Single view chest 11:16 AM. CORRELATION STUDY: 06/21/2018 FINDINGS: Left subclavian central line has been placed tip projected over the right paramediastinal region likely along the lateral wall of the SVC. Heart size and mediastinum are stable. Some improvement in aeration but there is continued infiltrate of the right mid to lower lung field. Vasculature appears improved on followup. IMPRESSION: 1. Left subclavian central line has been placed tip projects over the expected location lateral aspect superior vena cava. No pneumothorax post line placement. 2. Infiltrate or edema at the right mid and lower lung field. Dictated by: Dictated on workstation # [id number]
[2018-06-21] MEDS ORDERED: PIPERACILLIN/TAZOBACTAM (BULK) 4.5 GM in NS (IVPB) 100 ML IV ONE (11:30)
[2018-06-21] MEDS ORDERED: LORazepam INJ 2 MG/ML (ATIVAN) VIAL IVP ONE ×3 (11:45→14:15)
--- NOTE | 2018-06-21 11:46 | CONSULTATION REPORT ---
DATE OF SERVICE: 06/21/2018 HISTORY OF PRESENT ILLNESS: The patient is a 68-year-old male who presented to the [facility] Emergency Department with shortness of breath and obtundation. He has a history of hypertension, atrial fibrillation as well as alcohol abuse. He was found to be hypotensive and also found to be influenza positive. He will need a central venous catheter due to poor peripheral venous circulation as well as probable pressors to maintain mean systolic arterial pressure. PAST MEDICAL HISTORY: Hypertension, atrial fibrillation, alcohol abuse, and degenerative joint disease. PAST SURGICAL HISTORY: Hip replacement, cataract, and lumbar spine surgery. ALLERGIES: No known drug allergies. MEDICATIONS: Diltiazem, aspirin, atenolol, meloxicam simvastatin, hydrocodone. Vital signs - temperature is 100.9, blood pressure 76/65, pulse 174, respirations 18, and pulse ox 98% on O2 high flow nasal cannula. REVIEW OF SYSTEMS: A slightly thin and frail looking male, currently who appears to be fatigued and does not verbalize well at this time. He is showing signs of shortness of breath using accessory muscles. No known nausea or vomiting, no diarrhea or constipation. No known fever or chills. All other review of systems is negative. PHYSICAL EXAMINATION: CHEST: Scattered wheezes and rhonchi bilaterally. HEART: Tachycardic. EXTREMITIES: No lower extremity edema. Negative Homans sign. HEENT: No scleral icterus or cervical lymphadenopathy. ABDOMEN: Soft, nontender, and nondistended. SKIN: Cool with pallor. LABORATORY DATA: WBC is 6.8, hemoglobin 7.9, hematocrit 24, and platelets 257. BUN is 54, creatinine 2.31. ASSESSMENT AND PLAN: A 68-year-old male in respiratory distress, most likely secondary to an underlying pulmonary insufficiency as well as influenza with a history of atrial fibrillation with rapid ventricular return, who is currently hypotensive. He has poor peripheral venous circulation, most likely require vasopressors as well as the IV antiarrhythmics and we will proceed with placement of a central venous catheter. Job ID: [id number] DocumentID: [id number] Dictated Date: 06/21/2018 11:28:04 Jalousie Installer Date: 06/21/2018 11:46:01 Dictated By: JEANNINE ASHLEY MD
[2018-06-21] MEDS ORDERED: RT-ALBUTEROL/IPRATROPIUM 3 ML (DUONEB) VIAL ONE (11:48)
--- NOTE | 2018-06-21 11:51 | ED General ---
General Chief Complaint: Altered Mental Status Stated Complaint: DIFFICULTY BREATHING Nursing Triage Note: pt presents to ed via ems from home with complaints of ams, diahrrea, soa, and fever. pt reprots he first started getting sick 5 days ago. Nursing Sepsis Screen: Possible Severe Sepsis Risk Source of Information: Patient, EMS, Family Exam Limitations: Physical Impairments History of Present Illness Date Seen by Provider: Jun 21, 2018 Time Seen by Provider: 09:50 Initial Comments This 68-year-old man presents to the emergency room via EMS after being ill for about 4 days. His reports he has had large amounts of diarrhea and progressive weakness. He is hypoxic on arrival. EMS reports oxygen saturation of 89 percent on room air. Systolic blood pressure for EMS was in the 70s. Patient is confused and not answering questions appropriately at this time. He has a rather intense tremor. His reports a DO NOT RESUSCITATE status due to chronic liver disease. However, she would like to pursue aggressive treatment until his prognosis to clears itself better. Patient does drink daily and quit drinking about 4 days ago when he became ill. He has associated liver disease. Patient appears to be tachycardic with a heart rate in the 160s. Allergies and Home Medications Allergies Coded Allergies: naproxen (Verified Allergy, Unknown, RASH, 03/04/17) Home Medications Aspirin 81 Mg Tab.chew, 81 MG PO DAILY, (Reported) Atenolol 50 Mg Tablet, 50 MG PO DAILY, (Reported) Benazepril/Hydrochlorothiazide 1 Each Tablet, 1 EACH PO DAILY, (Reported) Diltiazem HCl 120 Mg Capsule.er, 120 MG PO HS, (Reported) Diltiazem HCl 240 Mg Cap.er.24h, 240 MG PO DAILY, (Reported) Furosemide 20 Mg Tablet, 20 MG PO DAILY PRN for pedal edema, (Reported) Simvastatin 20 Mg Tablet, 20 MG PO HS, (Reported) Patient Home Medication List Home Medication List Reviewed: Yes Review of Systems Review of Systems Constitutional: see HPI, weakness EENTM: no symptoms reported Respiratory: see HPI Cardiovascular: see HPI Gastrointestinal: see HPI Genitourinary: no symptoms reported Musculoskeletal: no symptoms reported Skin: no symptoms reported Psychiatric/Neurological: See HPI Hematologic/Lymphatic: No Symptoms Reported Immunological/Allergic: no symptoms reported Past Hnlewda-Phcovc-Vrhncb Hx Past Med/Social Hx: Reviewed and Corrections made Patient Social History Alcohol Use: Regular Use Number of Drinks Today: 0 Alcohol Beverage of Choice: Vodka Recreational Drug Use: No Smoking Status: Former Smoker Former Smoker, Quit: Jul 02, 1999 Recent Foreign Travel: No Contact w/Someone Who Travel: No Recent Infectious Disease Expo: No Recent Hopitalizations: No Physical Abuse: No Sexual Abuse: No Mistreated: No Fear: No Seasonal Allergies Seasonal Allergies: Yes Past Medical History Surgeries: Yes (left hip replaced , cataracts, spinal (laminectomy)) Vasectomy Respiratory: No Cardiac: Yes Atrial Fibrillation, Hypertension Neurological: No Reproductive Disorders: No Genitourinary: Yes Kidney Stones, Renal Failure (history of renal failure) Gastrointestinal: Yes Liver Disease/Jaundice Musculoskeletal: Yes (right shoulder) Arthritis, Chronic Back Pain Endocrine: No HEENT: No Hearing Impairment: Hard of Hearing Cancer: No Psychosocial: Yes (alcohol dependence) Integumentary: No Blood Disorders: No Physical Exam-Suspected Sepsis Physical Exam Vital Signs Vital Signs - First Documented 06/21/18 06/21/18 10:00 10:13 Temp 100.9 Pulse 174 Resp 18 B/P (MAP) 76/65 (69) Pulse Ox 98 O2 Delivery Non Rebreather O2 Flow Rate 10.00 Capillary Refill : Less Than 3 Seconds Blood Pressure Mean: 69 Height, Weight, BMI Height: 5'11.00" Weight: 190lbs. 0.0oz. 86.150540ow; 28.2 BMI Method:Stated General Appearance: WD/WN, Moderate Distress, Thin HEENT: PERRL/EOMI, Normal ENT Inspection, Other (mucous membranes somewhat dry) Neck: Normal Inspection Respiratory: Lungs Clear, Normal Breath Sounds, No Accessory Muscle Use, No Respiratory Distress Cardiovascular: No Edema, No Murmur, Tachycardia Gastrointestinal: Normal Bowel Sounds, Non Tender, Soft Extremity: Normal Capillary Refill, Normal Inspection, No Pedal Edema Neurologic/Psychiatric: Alert, No Motor/Sensory Deficits, Disoriented, Other ( rather intense tremor) Skin: normal color, warm/dry Focused Exam Sepsis Stage: Severe Sepsis Possible Source: Pulmonary Lactate Level 06/21/18 09:57: Lactic Acid Level 4.28*H 06/21/18 12:07: Lactic Acid Level 3.42*H Time of Focused Exam: 11:40 Respiratory: No Respiratory Distress (forced expirations), Rhonci Cardiovascular: No Edema, No Murmur, Tachycardia Capillary Refill: Less Than 3 Seconds Skin: normal color, warm/dry Lactic Acid Level Within 3hrs of presentation: Admin fluids, Admin ABX, Blood cultures prior to ABX's, Focus exam, Lactate level Progress/Results/Core Measures Suspected Sepsis Recent Fever Within 48 Hours: Yes Infection Criteria Present: Suspected New Infection New/Unexplained Altered Menta: Yes Sepsis Screen: Possible Severe Sepsis Risk SIRS Temperature:100.9 Pulse: 174 Respiratory Rate: 18 Laboratory Tests 06/21/18 09:57: White Blood Count 6.8 Blood Pressure 76 /65 Mean: 69 06/21/18 09:57: Lactic Acid Level 4.28*H 06/21/18 12:07: Lactic Acid Level 3.42*H Laboratory Tests 06/21/18 09:57: Creatinine 2.31H, INR Comment 1.2, Platelet Count 257, Total Bilirubin 0.8 Results/Orders Lab Results Laboratory Tests Test 06/21/18 09:49 06/21/18 09:57 06/21/18 10:11 06/21/18 11:40 Range/Units Urine Color YELLOW Urine Clarity CLEAR Urine pH 5 5-9 Urine Specific [place] 1.020 1.016-1.022 Urine Protein 2+ H NEGATIVE Urine Glucose (UA) NEGATIVE NEGATIVE Urine Ketones 1+ H NEGATIVE Urine Nitrite NEGATIVE NEGATIVE Urine Bilirubin 1+ H NEGATIVE Urine Urobilinogen 1 NORMAL MG/DL Urine Leukocyte Esterase 1+ H NEGATIVE Urine RBC (Auto) 1+ H NEGATIVE Urine RBC 0-2 /HPF Urine WBC 2-5 /HPF Urine Squamous Epithelial Cells 2-5 /HPF Urine Crystals NONE /LPF Urine Bacteria MODERATE H /HPF Urine Casts NONE /LPF Urine Mucus NEGATIVE /LPF Urine Culture Indicated CULTURE PENDING White Blood Count 6.8 4.3-11.0 10^3/uL Red Blood Count 3.08 L 4.35-5.85 10^6/uL Hemoglobin 7.9 L 13.3-17.7 G/DL Hematocrit 24 L 40-54 % Mean Corpuscular Volume 77 L 80-99 FL Mean Corpuscular Hemoglobin 26 25-34 PG Mean Corpuscular Hemoglobin Concent 33 32-36 G/DL Red Cell Distribution Width 18.0 H 10.0-14.5 % Platelet Count 257 130-400 10^3/uL Mean Platelet Volume 11.0 H 7.4-10.4 FL Neutrophils (%) (Auto) 88 H 42-75 % Lymphocytes (%) (Auto) 7 L 12-44 % Monocytes (%) (Auto) 5 0-12 % Eosinophils (%) (Auto) 0 0-10 % Basophils (%) (Auto) 0 0-10 % Neutrophils # (Auto) 6.0 1.8-7.8 X 10^3 Lymphocytes # (Auto) 0.5 L 1.0-4.0 X 10^3 Monocytes # (Auto) 0.4 0.0-1.0 X 10^3 Eosinophils # (Auto) 0.0 0.0-0.3 10^3/uL Basophils # (Auto) 0.0 0.0-0.1 10^3/uL Neutrophils % (Manual) 53 % Lymphocytes % (Manual) 3 % Monocytes % (Manual) 4 % Eosinophils % (Manual) 0 % Basophils % (Manual) 0 % Metamyelocytes % 4 % Myelocytes % 1 % Band Neutrophils 35 % Nucleated Red Blood Cells 2 Hypochromasia MODERATE Anisocytosis MODERATE Microcytosis SLIGHT Target Cells SLIGHT Prothrombin Time 15.5 H 12.2-14.7 SEC INR Comment 1.2 0.8-1.4 Activated Partial Thromboplast Time 39 H 24-35 SEC Sodium Level 124 *L 135-145 MMOL/L Potassium Level 4.7 3.6-5.0 MMOL/L Chloride Level 94 L 98-107 MMOL/L Carbon Dioxide Level 14 L 21-32 MMOL/L Anion Gap 16 H 5-14 MMOL/L Blood Urea Nitrogen 54 H 7-18 MG/DL Creatinine 2.31 H 0.60-1.30 MG/DL Estimat Glomerular Filtration Rate 28 BUN/Creatinine Ratio 23 Glucose Level 77 70-105 MG/DL Lactic Acid Level 4.28 *H 0.50-2.00 MMOL/L Calcium Level 7.8 L 8.5-10.1 MG/DL Corrected Calcium 9.1 8.5-10.1 MG/DL Total Bilirubin 0.8 0.1-1.0 MG/DL Aspartate Amino Transf (AST/SGOT) 66 H 5-34 U/L Alanine Aminotransferase (ALT/SGPT) 15 0-55 U/L Alkaline Phosphatase 191 H 40-136 U/L Ammonia 33 H 11-32 UMOL/L Total Protein 5.7 L 6.4-8.2 GM/DL Albumin 2.4 L 3.2-4.5 GM/DL Blood Gas Puncture Site R RAD Blood Gas Patient Temperature 100.9 Arterial Blood pH 7.40 7.37-7.43 Arterial Blood Partial Pressure CO2 23 L 35-45 MMHG Arterial Blood Partial Pressure O2 192 H 79-93 MMHG Arterial Blood HCO3 14 *L 23-27 MMOL/L Arterial Blood Total CO2 14.4 L 21.0-31.0 MMOL/L Arterial Blood Oxygen Saturation 100 94-100 % Arterial Blood Base Excess -10.0 L -2.5-2.5 MMOL/L Kalpesh Test YES-POS Blood Gas Ventilator Setting NO Blood Gas Inspired Oxygen 15 Stool Occult Blood Immunoassay POSITIVE H NEGATIVE Test 06/21/18 12:07 Range/Units Lactic Acid Level 3.42 *H 0.50-2.00 MMOL/L Micro Results Microbiology 06/21/18 C. difficile DNA Amplification - Final, Complete 06/21/18 C. difficile DNA Amplification, Resulted Pending 06/21/18 C. difficile GDH Antigen & Toxins - Final, Resulted 06/21/18 Influenza Types A,B Antigen (CAREY) - Final, Complete My Orders Orders - RADHA IQBAL MD Cbc With Automated Diff (06/21/18 10:05) Comprehensive Metabolic Panel (06/21/18 10:05) Blood Culture (06/21/18 10:05) Urinalysis (06/21/18 10:05) Urine Culture (06/21/18 10:05) Protime With Inr (06/21/18 10:05) Partial Thromboplastin Time (06/21/18 10:05) Chest 1 View, Ap/Pa Only (06/21/18 10:05) Saline Lock/Iv-Start (06/21/18 10:05) Saline Lock/Iv-Start (06/21/18 10:05) Vital Signs Adult Sepsis Patie Q15M (06/21/18 10:05) O2 (06/21/18 10:05) Remove Rings In Anticipation O (06/21/18 10:05) Lactic Acid Analyzer (06/21/18 10:05) Influenza A And B Antigens (06/21/18 10:05) Ns Iv 1000 Ml (Sodium Chloride 0.9%) (06/21/18 10:05) Ammonia (06/21/18 10:05) Arterial Blood Gas (06/21/18 10:13) Manual Differential (06/21/18 09:57) Ns Iv 1000 Ml (Sodium Chloride 0.9%) (06/21/18 11:00) Chest 1 View, Ap/Pa Only (06/21/18 11:10) Piperacillin/Tazobactam (Bulk) (Zosyn In (06/21/18 11:30) Lorazepam Injection (Ativan Injection) (06/21/18 11:45) Stool Culture (06/21/18 11:48) C Difficile Ag + Toxin A/B. (06/21/18 11:48) Occult Blood Stool (06/21/18 11:48) Albuterol/Ipra Inhalation Soln (Duoneb I (06/21/18 11:48) Adenosine Injection (Adenocard Injection (06/21/18 12:00) Lorazepam Injection (Ativan Injection) (06/21/18 12:30) Ns (Ivpb) (Sodium C... W/Diltiazem Injec (06/21/18 12:30) Red Cells Leukocytes Reduced (06/21/18 12:37) Type And Screen (06/21/18 12:37) Medications Given in ED Current Medications Medications Dose Ordered Sig/Rory Route Start Time Stop Time Status Last Admin Dose Admin Albuterol/ Ipratropium 3 ml STK-MED ONCE .ROUTE 06/21/18 11:48 06/21/18 11:51 DC 06/21/18 11:56 3 ML Lorazepam 1 mg ONCE ONCE IVP 06/21/18 11:45 06/21/18 11:46 DC 06/21/18 11:52 1 MG Piperacillin Sod/ Tazobactam Sod 4.5 gm/Sodium Chloride 120 ml @ 240 mls/hr ONCE ONCE IV 06/21/18 11:30 06/21/18 11:59 DC 06/21/18 12:03 240 MLS/HR Sodium Chloride 1,000 ml @ 999 mls/hr Q1H ONCE IV 06/21/18 11:00 06/21/18 12:00 DC 06/21/18 10:55 999 MLS/HR Vital Signs/I&O 06/21/18 06/21/18 06/21/18 06/21/18 10:00 10:13 11:56 13:35 Temp 100.9 100.6 Pulse 174 165 Resp 18 20 B/P (MAP) 76/65 (69) 84/67 (73) Pulse Ox 98 98 100 84 O2 Delivery Non Rebreather Non Rebreather Non Rebreather Non Rebreather O2 Flow Rate 10.00 10.00 15.00 10.00 06/21/18 06/21/18 13:36 13:42 Pulse 154 152 Resp 37 O2 Flow Rate 50.00 Capillary Refill : Less Than 3 Seconds Blood Pressure Mean: 69 Progress Note #1: Time: 12:49 Progress Note Patient was provided immediate large volume fluid resuscitation. Thus far he has received 3 L IV normal saline. This satisfies 30 ML per kilogram for severe sepsis. Sepsis workup was pursued. Influenza screen was positive for influenza A. Patient also appeared to have a right lower lobe pneumonia. Zosyn was administered after blood cultures and lactic acid were drawn. Patient didn't meet criteria for severe sepsis with lactic acid greater than 4 and multiorgan system failure. Patient was persistently tachycardic despite fluid resuscitation. We attempted to unmask underlying rhythm with adenosine. However, patient began to flail about and urinate immediately after adenosine was given. On repeat EKGs the rhythm does appear to be atrial fibrillation with RVR. Dr. Hurley was consulted. He recommends Lauri-Synephrine for treatment of persistent hypotension if needed. Cardizem drip was ordered to initiate in the ER. Dr. Perea recommends transfusion of one unit PRBC given the borderline blood pressure measurements after fluid resuscitation. Patient does have alcohol dependence. Ativan 1 mg IV was given which did not seem to improve his tremor. His second dose of 2 mg was given for further treatment. Patient is likely in significant alcohol withdrawal. Stool studies were sent for evaluation. Progress Note #2: Time: 13:21 Progress Note For having difficulty registering options saturations on the patient. Different modalities have been attempted without much success. Patient also continues to have marginal blood pressures. Breath sounds are now sounding more wet. Status was discussed with Dr. Perea. Patient is a DO NOT RESUSCITATE but could use a BiPAP. I've asked RT to meet the patient in the ICU to start BiPAP therapy. Nursing report has been given and patient is ready for transfer. Dr. Perea was updated with patient status. He may need pressor therapy started upon arrival to the ICU. Dr. Perea was made aware. Progress Note #3: Progress Note After admission patient was not doing well. Dr. Perea presented to the ER to discuss the patient's situation with his , who was a patient in the ER at the time. After a long discussion, his decided on comfort care. Patient a short time later. ECG EKG #1: EKG Time: 10:25 Rate: 168 Comment Narrow complex tachycardia, likely atrial fibrillation or atrial flutter. No obvious ST elevation or depression to suggest ischemia. EKG #2: EKG Time: 12:09 Rate: 162 Comment Tachycardia with significant artifact. Likely atrial fibrillation. EKG #3: EKG Time: 12:11 Rate: 132 Rhythm: A Fib/Flutter ECG Impression: Atrial Fibrillation w/RVR Comment EKG was done after administration of adenosine 12 mg. There was major artifact due to patient flailing about immediately after administration of the medication. Rhythm appeared to be atrial fibrillation with RVR of the artifact was so prominent the EKG is of little value. Departure Communication (Admissions) Time/Spoke to Admitting Phy: 11:40 Dr. Cooper 11:45 Dr. Perea 11:58 Dr. Hurley Impression Primary Impression: Severe sepsis Additional Impressions: Influenza Acute renal failure Qualified Codes: N17.9 - Acute kidney failure, unspecified Respiratory failure Qualified Codes: J96.01 - Acute respiratory failure with hypoxia Right lower lobe pneumonia Qualified Codes: J18.1 - Lobar pneumonia, unspecified organism Tachycardia Alcohol dependence Qualified Codes: F10.239 - Alcohol dependence with withdrawal, unspecified Tremor Diarrhea Qualified Codes: R19.7 - Diarrhea, unspecified Atrial fibrillation with RVR Anemia Qualified Codes: D64.9 - Anemia, unspecified Disposition: 09 ADMITTED INPATIENT Condition: Improved Admissions Decision to Admit Reason: Admit from ER (General) Decision to Admit/Date: Jun 21, 2018 Time/Decision to Admit Time: 09:50 Departure-Patient Inst. Referrals: RUTHIE CHONG MD (PCP/Family) Primary Care Physician RADHA IQBAL MD Jun 21, 2018 11:51
[2018-06-21] MEDS ORDERED: ADENOSINE 6 MG/2 ML (ADENOCARD) VIAL IV ONE (12:00)
--- NOTE | 2018-06-21 12:09 | NUR ---
DR. IQBAL AT PT BEDSIDE AT THIS TIME FOR ADENOSINE INJECTION. PT EKG OBTAINED. PT CURRENT HR 162. PT APPEARS ANXIOUS AND HAS BODY TREMORS. DR. WOODS. PT 02 SAT READING AT 82% ON A NON REBREATHER AT 10 L. UNABLE TO CAPTURE GOOD WAVE FORM DESPITE TRYING SEVERAL SITES AND PULSE OX PROBES.
--- NOTE | 2018-06-21 12:11 | NUR ---
ADENOSINE 12 MG GIVEN AT THIS TIME. DR. SERRA AT PT BEDSIDE.
[2018-06-21] MEDS ORDERED: DILTIAZEM INJECTION 125 MG in NS (IVPB) 100 ML IV SCH (12:30)
--- NOTE | 2018-06-21 12:39 | NUR ---
THIS RN AT PT BEDSIDE. PT CONTINUES TO HAVE TREMORS AND APPEARS AGITATED. PT GRABBING AT WIRES AND IS RESTLESS. PT HR 152. PT O2 SAT NOT READING. O2 SAT PROB REPOSITIONED TO PT NOSE BUT UNABLE TO GET A GOOD WAVE FORM. DR. IQBAL INFORMED. ORDERS FOR 2 MG ATIVAN RECEIVED FOR PT TREMORS.
--- OUTSIDE RECORDS SUMMARY | 2018-06-21 12:40 | XMS REPORT | Clinical Summary ---
Author Author [facility] Organization [facility] Address Unknown Phone Unavailable Care Team Providers Care Pet Store Merchandiser Name Role Phone Julianne Paulson MD PCP Juan Rothman MD Unavailable Source Comments Some departments are not documenting in the electronic medical record. If you do not see the information that you expected, contact Release of Information in the Health Information Management department at [phone] for further assistance in locating additional records.[facility] Allergies Comments Active Allergy Reactions Severity Noted [...] Taken Vital Sign Reading 04/08/2017 2:54 PM STRAWHAT BLOCKING OPERATOR Blood Pressure 103/51 04/08/2017 2:54 PM STRAWHAT BLOCKING OPERATOR Pulse 57 04/08/2017 2:54 PM STRAWHAT BLOCKING OPERATOR Temperature 37 C (98.6 F) 04/08/2017 2:54 PM STRAWHAT BLOCKING OPERATOR Respiratory Rate 18 04/08/2017 2:54 PM STRAWHAT BLOCKING OPERATOR Oxygen Saturation 100% - Inhaled Oxygen - Concentration 04/08/2017 2:54 PM STRAWHAT BLOCKING OPERATOR Weight 97 kg (213 lb 12.8 oz) 04/08/2017 2:54 PM STRAWHAT BLOCKING OPERATOR Height 180.3 cm (5' 11") 04/08/2017 2:54 PM STRAWHAT BLOCKING OPERATOR Body Mass Index 29.82 Plan of Treatment [...] on file. For more information, please contact: [facility] [address] [place] [address]
--- NOTE | 2018-06-21 12:45 | NUR ---
THIS RN AT PT BEDSIDE. PT RESPIRATIONS HAVE AUDIBLE CRACKLES. PT APPEARS LESS ANXIOUS AND TREMORS HAVE MINIMIZED. PT HR REMAINS AT 160. PT 02 SAT READING WITH IRREGULAR WAVE FORM OF 84% ON NONREBREATHER AT 10 L. PT BP 97/83. DR IQBAL INFORMED. DR DALTON PT TO BE TRANSFERED TO ICU SOON POSSIBLE.
--- OUTSIDE RECORDS SUMMARY | 2018-06-21 12:47 | XMS REPORT | Continuity of Care Document ---
Author Author [facility] Organization [facility] Address Unknown Phone Unavailable Allergies Active Description Code Type Severity Reaction Onset Reported/Identified Relationship to Patient Clinical Status Yes naproxen [id number] Drug Allergy Unknown RASH 03/04/2017 Medications There is no data. Problems Date Dx Coded Attending Type Code Diagnosis Diagnosed By 07/07/2015 Ot V58.61 07/07/2015 Ot V58.83 07/10/2015 ANDREW WEST RN RENAL Ot M19.011 07/20/2015 Ot V58.61 07/20/2015 Ot V58.83 07/20/2015 ANDREW WEST RN RENAL Ot M19.011 07/20/2015 ANDREW WEST RN RENAL Ot M25.511 07/21/2015 ANDREW EWST RN RENAL Ot M25.511 PAIN IN RIGHT SHOULDER 07/25/2015 ANDREW WEST RN RENAL Ot M25.511 PAIN IN RIGHT SHOULDER 07/26/2015 ANDREW WEST RN RENAL Ot M19.011 PRIMARY OSTEOARTHRITIS, RIGHT SHOULDER 10/11/2015 Ot V58.61 ANTICOAGULANTS,LT,CURRENT USE 10/11/2015 Ot V58.83 ENCOUNTER FOR THERAPEUTIC DRUG MONITORIN 10/11/2015 ANDREW WEST RN RENAL Ot M19.011 PRIMARY OSTEOARTHRITIS, RIGHT SHOULDER 10/11/2015 ANDREW WEST RN RENAL Ot M25.511 PAIN IN RIGHT SHOULDER 10/12/2015 LONDON RIVERS MD Ot Z01.810 ENCOUNTER FOR PREPROCEDURAL CARDIOVASCUL 10/12/2015 LONDON RIVERS MD Ot Z01.812 ENCOUNTER FOR PREPROCEDURAL LABORATORY E 10/17/2015 LONDON RIVERS MD Ot Z01.810 ENCOUNTER FOR [...] LOCALIZED EDEMA 08/31/2016 MARCELLO KAUR Ot Z79.84 SENIOR LIVING (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 OF ORAL HYPOGLYC 08/31/2016 MARCELLO KAUR Ot Z79.899 OTHER SENIOR LIVING (CURRENT) DRUG THERAPY 08/31/2016 ANDREW WEST RN RENAL Ot M19.011 PRIMARY OSTEOARTHRITIS, RIGHT SHOULDER 08/31/2016 ANDREW WEST RN RENAL Ot M25.511 PAIN IN RIGHT SHOULDER 08/31/2016 [...] LOW 03/04/2017 JEREMY JUDGE MD, Ot Z79.82 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 03/04/2017 JEREMY JUDGE MD, Ot Z79.899 OTHER SENIOR LIVING (CURRENT) DRUG THERAPY 03/04/2017 JEREMY JUDGE MD, Ot Z87.891 PERSONAL HISTORY OF NICOTINE DEPENDENCE 03/06/2017 JEREMY JUDGE MD Ot I10 ESSENTIAL (PRIMARY) HYPERTENSION 03/06/2017 JEREMY JUDGE MD, Ot I48.91 UNSPECIFIED ATRIAL FIBRILLATION 03/06/2017 JEREMY JUDGE MD, Ot M16.12 UNILATERAL PRIMARY OSTEOARTHRITIS, LEFT 03/06/2017 JEREYM JUDGE MD, Ot N13.5 CROSSING VESSEL AND STRICTURE OF URETER 03/06/2017 JEREMY JUDGE MD, Ot N20.2 CALCULUS OF KIDNEY WITH CALCULUS OF URET 03/06/2017 JEREMY JUDGE MD, Ot N40.0 BENIGN PROSTATIC HYPERPLASIA WITHOUT LOW 03/06/2017 JEREMY UJDGE MD, Ot Z79.82 SENIOR LIVING (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 OF ASPIRIN 03/06/2017 JEREMY JUDGE MD, Ot Z79.899 OTHER IP NETWORK ARCHITECT (CURRENT) DRUG THERAPY 03/06/2017 EJREMY JUDGE MD, Ot Z87.891 PERSONAL HISTORY OF [...] LOW 03/19/2017 JEREMY JUDGE MD Ot Z79.82 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 NRG Bacterial body fluid culture - 02/13/18 [...] Status Pt. Type Provider Facility Loc./Unit Complaint [id number] 06/12/2018 08:22:00 06/12/2018 23:59:59 CLS Outpatient RUTHIE CHONG MD [facility] RAD ABD ASCITES [id number] 04/30/2018 11:12:00 04/30/2018 23:59:59 CLS Outpatient RUTHIE CHONG MD [facility] RAD ABDOMINAL ASCITES [id number] 03/09/2018 10:06:00 03/09/2018 23:59:59 CLS Outpatient RUTHIE CHONG MD [facility] RAD ASCITES [id number] 02/13/2018 10:42:00 02/13/2018 23:59:59 CLS Outpatient RUTHIE CHONG MD [facility] RAD ASCITES [id number] 02/11/2018 12:17:00 02/11/2018 23:59:59 CLS Outpatient RUTHIE CHONG MD [facility] RAD ASCITES,ALCOHOLISM, WT GAIN [id number] 12/10/2017 12:25:00 12/10/2017 23:59:59 CLS Outpatient RUTHIE CHONG MD [facility] RAD BILAT BREAST PAIN [id number] 05/01/2017 09:00:00 05/01/2017 23:59:59 CLS Preadmit Nicola PHILLIP MD [facility] CATH AFIB AND RVR [id number] 03/04/2017 06:53:00 03/04/2017 10:54:00 DIS Outpatient JEREMY JUDGE MD [facility] SDC LEFT URETERAL STONE [id number] 02/26/2017 13:00:00 02/26/2017 13:04:00 DIS Outpatient JEREMY JUDGE MD [facility] PREOP LEFT URETERAL STONE [id number] 02/24/2017 14:58:00 02/24/2017 23:59:59 CLS Outpatient JEREMY JUDGE MD [facility] RAD URETERAL STONE [id number] 02/14/2017 13:13:00 02/14/2017 23:59:59 CLS Outpatient JEREMY JUDGE MD [facility] RAD HEMATURIA [id number] 09/03/2016 13:55:00 09/03/2016 23:59:59 CLS Outpatient LONDON RIVERS MD [facility] RAD CHRONIC BACK PAIN [id number] 08/31/2016 15:20:00 08/31/2016 18:06:00 DIS Emergency MARCELLO KAUR [facility] ER SWELLING IN FEET [id number] 11/08/2015 09:42:00 11/08/2015 15:07:00 DIS Outpatient GB RYAN MD [facility] SDC RIGHT TORN ROTATOR CUFF [id number] 11/02/2015 10:28:00 11/02/2015 10:55:00 DIS Outpatient BG RYAN MD [facility] PREOP RIGHT TORN ROTATOR CUFF [id number] 10/11/2015 13:09:00 10/11/2015 23:59:59 CLS Outpatient LONDON RIVERS MD [facility] CARD R RTC CUFF SURGERY CLEARANCE [id number] 07/20/2015 09:18:00 07/20/2015 23:59:59 CLS Outpatient ANDREW WEST APRN [facility] RAD RT ARM SHOULDER PAIN [id number] 07/07/2015 14:42:00 07/07/2015 23:59:59 CLS Outpatient ANDREW WEST RN RENAL [facility] RAD RIGHT UPPER ARM SHOULDER PAIN [id number] 01/11/2013 09:16:00 01/11/2013 23:59:59 CLS Outpatient [id number] 06/21/2010 12:30:00 Document Registration [id number] 01/22/2017 23:27:53 01/22/2017 23:59:59 CLS Outpatient [id number] 03/18/2018 14:00:00 03/18/2018 23:59:59 CLS [facility]
--- NOTE | 2018-06-21 13:00 | NUR ---
ATTEMPT TO CALL REPORT TO [employer] P[employer]OT MECHANIC AT THIS TIME, REPORTS UNAVAILABLE AND WILL CALL BACK FOR REPORT.
--- NOTE | 2018-06-21 13:20 | NUR ---
THIS RN REQUEST DR IQBAL AT PT BEDSIDE TO ASSESS PT. PT CONTINUES TO HAVE AUDIBLE CRACKLES AND APPEARS LESS RESPONSIVE AT THIS TIME. PT APPEARS CONFUSED AND IS NOT RESPONDING TO VERBAL QUES. DR. BRIDGES REPORTS HE NEEDS BIPAP AND TO TRANSFER THE PT TO ICU TO GET SET UP FOR POSSIBLE PRESSERS. INFORMS THIS RN RT HAS BEEN NOTIFIED AND WILL MEET AT ICU BEDSIDE FOR BIPAP. PT CURRENT VITALS HR 177, SPO2 83% ON NON REBREATHER AT 10 L, AND BP OF 84/67.
--- NOTE | 2018-06-21 13:24 | Pulmonary Consultation ---
History of Present Illness History of Present Illness Date of Consultation 06/21/18 13:19 Time Seen by Provider: 13:19 Date of Admission History of Present Illness 68yo with hx of heavy alcohol use and chronic liver disease presented to ED via EMS secondary to worsening SOB, diarrhea, weakness, and fever. Upon ED admission pt was found to be hypoxic and required oxygen. SBP was in the 70's. He was dx with severe sepsis and Influenza A in the ED. PTs last drink was 4 days ago. Pt's Hr was in the 160's in the ED. Pt is a DNR currently. I am consulted for pulmonary CC management. Unable to obtain ROS. Allergies and Home Medications Allergies Coded Allergies: naproxen (Verified Allergy, Unknown, RASH, 03/04/17) Home Medications Aspirin 81 Mg Tab.chew, 81 MG PO DAILY, (Reported) Atenolol 50 Mg Tablet, 50 MG PO DAILY, (Reported) Benazepril/Hydrochlorothiazide 1 Each Tablet, 1 EACH PO DAILY, (Reported) Diltiazem HCl 120 Mg Capsule.er, 120 MG PO HS, (Reported) Diltiazem HCl 240 Mg Cap.er.24h, 240 MG PO DAILY, (Reported) Furosemide 20 Mg Tablet, 20 MG PO DAILY PRN for pedal edema, (Reported) Simvastatin 20 Mg Tablet, 20 MG PO HS, (Reported) Past Mhxfywq-Jwxitm-Ugjgub Hx Past Med/Social Hx: Reviewed and Corrections made Patient Social History Alcohol Use: Regular Use Number of Drinks Today: 0 Alcohol Beverage of Choice: Vodka Recreational Drug Use: No Smoking Status: Former Smoker Former Smoker, Quit: Jul 02, 1999 Recent Foreign Travel: No Contact w/Someone Who Travel: No Recent Infectious Disease Expo: No Recent Hopitalizations: No Physical Abuse: No Sexual Abuse: No Mistreated: No Fear: No Seasonal Allergies Seasonal Allergies: Yes Past Medical History Surgeries: Yes (left hip replaced , cataracts, spinal (laminectomy)) Vasectomy Respiratory: No Cardiac: Yes Atrial Fibrillation, Hypertension Neurological: No Reproductive Disorders: No Genitourinary: Yes Kidney Stones, Renal Failure (history of renal failure) Gastrointestinal: Yes Liver Disease/Jaundice Musculoskeletal: Yes (right shoulder) Arthritis, Chronic Back Pain Endocrine: No HEENT: No Hearing Impairment: Hard of Hearing Cancer: No Psychosocial: Yes (alcohol dependence) Integumentary: No Blood Disorders: No Review of Systems Time Seen by Provider: 14:17 Sepsis Event Evaluation Height, Weight, BMI Height: 5'11.00" Weight: 190lbs. 0.0oz. 86.378757kv; 28.2 BMI Method:Stated Exam Exam Vital Signs Date Time Temp Pulse Resp B/P (MAP) Pulse Ox O2 Delivery O2 Flow Rate FiO2 06/21/18 11:56 100 Non Rebreather 15.00 06/21/18 10:13 100.9 174 18 76/65 (69) 98 Non Rebreather 10.00 Height & Weight Height: 5'11.00" Weight: 190lbs. 0.0oz. 86.521658qy; 28.2 BMI Method:Stated General Appearance: WD/WN, Anxious, Chronically ill, Severe Distress, Thin HEENT: PERRL/EOMI, Normal ENT Inspection, Other (mucous membranes somewhat dry) Neck: Normal Inspection Respiratory: No Respiratory Distress (forced expirations), Rhonci Cardiovascular: No Edema, No Murmur, Tachycardia Capillary Refill: Less Than 3 Seconds Extremity: Normal Capillary Refill, Normal Inspection, No Pedal Edema Neurologic/Psychiatric: Alert, No Motor/Sensory Deficits, Disoriented, Other ( rather intense tremor) Results Lab Laboratory Tests 06/21/18 09:57 Assessment/Plan Assessment/Plan Severe sepsis secondary to Influenza A r/o secondary infection -Tamiflu -IVF Hypotension secondary to septic shock -Neosynphrin per Dr. Hurley -IVF RLL pneumonia -Continue Zosyn - Anemia with hypotension -transfuse 1 unit PRBC Metabolic encephalopathy -Pt has had diarrhea -Ammonia level is 33 Hyponatremia -Monitor -IVF with NS right now Alcohol dependance -Alcohol withdrawal protocol -Will start Precedex - WITH DR. IQBAL, RN, AND RT PRESENT I EXPLAINED TO PT'S CURRENT CONDITION AND PROGNOSIS. PT IS VERY SICK AND NOT CURRENTLY DOING WELL. I EXPLAINED TO WE EITHER NEED TO PUT PATIENT ON VENT TO STABILIZE OR MAKE HIM COMFORT CARE ONLY. SHE ELECTS FOR COMFORT CARE AND SHE UNDERSTANDS PT WILL MOST LIKELY WITHIN 24HOURS AFTER MAKING HIM COMFORT CARE ONLY. WILL D/C ALL MEDS AND JUST MAKE HIM COMFORTABLE. ANTHONY PORTER DO Jun 21, 2018 13:24
[2018-06-21] MEDS ORDERED: 1/2 NS IV SOLUTION 1,000 ML IV PRN (13:33)
[2018-06-21 13:35] VITALS: BP 84/67
[2018-06-21] MEDS ORDERED: NS (IVPB) 250 ML ONE (13:41)
[2018-06-21] MEDS ORDERED: PHENYLEPHRINE INJ 10 MG/ML (FOR DRIP KITS ONLY) ONE (13:41)
[2018-06-21] MEDS ORDERED: ONDANSETRON 4 MG/2 ML (SDV) Z0FRAN IV PRN (13:45)
[2018-06-21] MEDS ORDERED: ONDANSETRON 4 MG (ZOFRAN) ORAL DISSOLVE TAB SL PRN (13:45)
[2018-06-21] MEDS ORDERED: LORazepam INJ 2 MG/ML (ATIVAN) VIAL IM/IV PRN ×2 (13:45)
[2018-06-21] MEDS ORDERED: D5 1/2 NS 1000 ML IV SOLUTION 1,000 ML IV PRN (13:45)
[2018-06-21] MEDS ORDERED: LORazepam 1 MG (ATIVAN) TAB PO PRN ×2 (13:45)
[2018-06-21] MEDS ORDERED: DEXMEDETOMIDINE INJECTION 200 MCG in NS (IVPB) 50 ML IV SCH (13:45)
[2018-06-21] MEDS ORDERED: SENNA W/DOCUSATE (SENOKOT S) TABLET PO PRN ×2 (13:45)
[2018-06-21] MEDS ORDERED: LORazepam INJ 2 MG/ML (ATIVAN) VIAL IVP PRN ×2 (13:45→14:30)
[2018-06-21] MEDS ORDERED: ANTACID SUSP 30 ML UDC (MYLANTA) PO PRN ×2 (13:45)
[2018-06-21] MEDS ORDERED: LORazepam INJ 2 MG/ML (ATIVAN) VIAL IV PRN ×2 (13:45)
[2018-06-21] MEDS ORDERED: VASOPRESSIN INJECTION 20 UNIT in NS (IVPB) 100 ML IV SCH (14:00)
[2018-06-21] MEDS ORDERED: SODIUM BICARB 8.4% 50 MEQ/50 ML (ABBOTT) SYR IV NR (14:01)
[2018-06-21] MEDS ORDERED: THIAMINE INJECTION 100 MG, FOLIC ACID INJECTION 1 MG, MAGNESIUM SULFATE 2 GM, VITAMIN M... IV SCH ×5 (14:04)
[2018-06-21] MEDS ORDERED: OSELTAMIVIR 30 MG (TAMIFLU) CAPSULE PO SCH (14:05)
[2018-06-21] MEDS ORDERED: NS IV 1000 ML 1,000 ML ONE (14:07)
--- NOTE | 2018-06-21 14:07 | History & Physical-Hospitalist ---
History of Present Illness HPI/Chief Complaint CC: Severe sepsis HPI: Is a 68-year-old white male known alcoholic of Dr. Paulson who lives at home with his who presented to the hospital with altered mental status found to have severely elevated lactic acid and hypotension classified as severe sepsis in addition to an alcohol withdrawal last drink was 4 days ago. wanted DO NOT RESUSCITATE orders so those were placed but patient has such severe agitation and appears to have multisystem organ failure that it would not be unreasonable to assess this is on recoverable and placed on comfort care protocol. I spoke with Dr. Perea and Dr. Rivers in depth and we will approach his regarding these 2 options at this current time he is failing BiPAP due to severe agitation. Source: RN/MD, old records Exam Limitations: clinical condition Date Seen 06/21/18 Time Seen by a Provider: 14:00 Attending Physician Latoya Esparza DO PCP Julianne Paulson MD Referring Physician Date of Admission Jun 21, 2018 at 11:49 Home Medications & Allergies Home Medications Reviewed patient Home Medication Reconciliation performed by pharmacy medication reconciliations network control technician and/or nursing. Patients Allergies have been reviewed. Allergies Allergies Coded Allergies naproxen (Verified Allergy, Unknown, RASH, 03/04/17) Past Jochqoo-Escnfq-Kyxxqi Hx Past Med/Social Hx: Reviewed Nursing Past Med/Soc Hx, Reviewed and Corrections made Patient Social History Marrital Status: Employed/Student: retired Alcohol Use: Regular Use Number of Drinks Today: 0 Alcohol Beverage of Choice: Vodka Recreational Drug Use: No Smoking Status: Former Smoker Former Smoker, Quit: Jul 02, 1999 Recent Foreign Travel: No Contact w/other who traveled: No Recent Hopitalizations: No Recent Infectious Disease Expo: No Seasonal Allergies Seasonal Allergies: Yes Past Medical History Surgeries: Vasectomy Cardiac: Atrial Fibrillation, Hypertension Reproductive: No Genitourinary: Kidney Stones, Renal Failure (history of renal failure) Gastrointestinal: Liver Disease/Jaundice Musculoskeletal: Arthritis, Chronic Back Pain Hearing Impairment: Hard of Hearing History of Blood Disorders: No Review of Systems ROS-Unable to Obtain: unable to ascertain Constitutional: see HPI Physical Exam Physical Exam Vital Signs Vital Signs - First Documented 06/21/18 10:13 Temp 100.9 Pulse 174 Resp 18 B/P (MAP) 76/65 (69) Pulse Ox 98 O2 Delivery Non Rebreather O2 Flow Rate 10.00 Capillary Refill : Less Than 3 Seconds Height, Weight, BMI Height: 5'11.00" Weight: 190lbs. 0.0oz. 86.614533ze; 28.2 BMI Method:Stated General Appearance: Anxious, Chronically ill, Severe Distress, Thin Respiratory: Accessory Muscle Use, Decreased Breath Sounds, Rales, Respiratory Distress, Wheezing Cardiovascular: No Edema, Tachycardia Neurologic/Psychiatric: Alert, Disoriented, Other (confused, thrashing around bed with biPAP on) Results Results/Procedures Labs Laboratory Tests 06/21/18 09:57 Patient resulted labs reviewed. Assessment/Plan Admission Diagnosis Assessment: Acute respiratory failure failing biPAP Confusion Acute influenza A Severe sepsis Acute renal failure Hyponatremia Severe lactic acidosis Elevated ammonia Alcoholism Acute alcohol withdrawal Diarrhea with C. difficile likely positive awaiting final results Poor prognosis and no recovery potential likely hospice candidate Plan: Confer with whether we intubate and sedate or place on comfort care protocol and sedate due to severe ETOH withdrawal with multi-system organ failure No recovery potential expected given organ failure and long-standing ETOHism Admission Status: Inpatient Order (span 2 midnights) Reason for Inpatient Admission: Critical illness will require 4 days inpatient Diagnosis/Problems Diagnosis/Problems (1) Severe sepsis Status: Acute (2) Right lower lobe pneumonia Status: Acute Qualifiers: Pneumonia type: due to unspecified organism Qualified Codes: J18.1 - Lobar pneumonia, unspecified organism (3) Alcohol withdrawal Status: Acute Qualifiers: Complication of substance-induced condition: with delirium Qualified Codes : F10.231 - Alcohol dependence with withdrawal delirium (4) Liver failure Status: Acute Qualifiers: Liver failure chronicity: subacute Hepatic coma status: with hepatic coma Qualified Codes: K72.01 - Acute and subacute hepatic failure with coma (5) Increased ammonia level Status: Acute (6) GI bleed Status: Acute Qualifiers: GI bleed type/associated pathology: unspecified gastrointestinal hemorrhage type Qualified Codes: K92.2 - Gastrointestinal hemorrhage, unspecified (7) C. difficile colitis Status: Acute (8) Lactic acid acidosis Status: Acute (9) Atrial fibrillation with RVR Status: Acute (10) Influenza Status: Acute (11) Tachycardia Status: Acute (12) Tremor Status: Acute (13) Respiratory failure Status: Acute Qualifiers: Chronicity: acute Respiratory failure complication: hypoxia Qualified Codes: J96.01 - Acute respiratory failure with hypoxia (14) Diarrhea Status: Acute Qualifiers: Diarrhea type: unspecified type Qualified Codes: R19.7 - Diarrhea, unspecified (15) Acute renal failure Status: Acute Qualifiers: Acute renal failure type: unspecified Qualified Codes: N17.9 - Acute kidney failure, unspecified (16) Alcohol dependence Status: Acute Qualifiers: Substance use status: in withdrawal Complication of substance-induced condition: with unspecified complication Qualified Codes: F10.239 - Alcohol dependence with withdrawal, unspecified (17) Anemia Status: Acute Qualifiers: Anemia type: unspecified type Qualified Codes: D64.9 - Anemia, unspecified LATOYA ESPARZA DO Jun 21, 2018 14:07
[2018-06-21] MEDS ORDERED: PIPERACILLIN/TAZO 4.5 GM/NS 100 ML IV NR ×2 (14:08)
[2018-06-21] MEDS ORDERED: morphine INJ 4 MG/ML 1 ML (VIAL/SYRINGE) ONE (14:11)
[2018-06-21] MEDS ORDERED: PHENYLEPHRINE INJECTION 10 MG in NS (IVPB) 250 ML IV SCH (14:15)
[2018-06-21] MEDS ORDERED: ACETAMINOPHEN 325 MG TABLET PO PRN (14:15)
[2018-06-21] MEDS ORDERED: morphine INJ 10 MG/ML 1ML (SYR OR VIAL) IVP NR (14:24)
[2018-06-21] MEDS ORDERED: PROMETHAZINE INJ 25 MG/ML (PHENERGAN) AMP IVP PRN (14:30)
[2018-06-21] MEDS ORDERED: morphine INJ 4 MG/ML 1 ML (VIAL/SYRINGE) IVP PRN (14:30)
[2018-06-21] MEDS ORDERED: SCOPOLAMINE 1.5 MG (TRANSDERM-SCOP) PATCH TOP SCH (14:30)
[2018-06-21] MEDS ORDERED: GLYCOPYRROLATE 0.2 MG/ML (ROBINUL) 2 ML VIAL IV PRN (14:30)
--- NOTE | 2018-06-21 14:50 | NUR ---
JUDY GLOVER admitted to room CU10-1, with an admitting diagnosis of Sepsis, A-fib with RVR, pneumonia, on 06/21/18 from AM via cart, accompanied by staff.JUDY GLOVER introduced to surroundings, call light, bed controls, phone, TV, temperature control, lights, meal times, smoking policy, visitor policy, side rail policy, bathrooms and showers. Patient Rights given to patient in the handbook. JUDY GLOVER verbalizes understanding that [facility] is not responsible for the loss or damage to any personal effects or valuables that are kept in the patients posession during their hospitalization. The following Patient Care Plans were discussed with the pt, but pt unable to comprehend: Discharge Planning. JUDY GLOVER unable to verbalize understanding of Interdisciplinary Patient Education. Patient and/or family were informed about the Rapid Response Team and its purpose.
--- NOTE | 2018-06-21 15:41 | Consultation-Cardiology ---
HPI-Cardiology Cardiology Consultation: Date of Consultation 06/21/18 Date of Admission Attending Physician Latoya Cooper DO Admitting Physician Julianne Paulson MD Consulting Physician Nicola HURLEY MD HPI: Time Seen by a Provider: 12:15 Chief Complaint: Tachycardia, shortness of breath This is a 68-year-old gentleman who presents to the ER with emergency services after being sick for the last 4-5 days. The patient denies any chest pain, syncope or near syncope. He was brought in for hypoxia, shortness of breath, confusion. EMS found him to be hypotensive with systolic blood pressure of 70 mmHg. Patient was also hypoxic with oxygen saturation below 90 percent. Difficult to take a history from the patient but he denied any mikael chest pain. He was also shivering when I saw the patient. The patient is a chronic alcoholic with chronic liver disease. His CODE STATUS is DO NOT RESUSCITATE. The patient's last drink was 4 days ago when he became sick. The patient was also found to be in severe tachycardia, therefore cardiology was consulted. Review of Systems-Cardiology Review of Systems Constitutional: As described under HPI; No As described under HPI, No no symptoms reported, No chills, No fever, No lightheadedness Eyes: No As described under HPI, No no symptoms reported, No blindness, No blurred vision, No contact lenses, No drainage, No decreased acuity, No foreign body sensation, No pain, No vision change Ears/Nose/Throat: No As described under HPI, No no symptoms reported, No chronic hearing loss, No ear discharge, No ear pain, No nasal drainage, No ulcerations Respiratory: No no symptoms reported; As described under HPI; No As described under HPI, No cough, No orthopnea; shortness of breath; No SOB with excertion Cardiovascular: No no symptoms reported; As described under HPI; No As described under HPI, No chest pain, No edema, No irregular heart rate, No lightheadedness, No palpitations Gastrointestinal: No no symptoms reported, No As described under HPI, No abdomen distended, No abdominal pain, No blood streaked bowels, No constipation , No diarrhea, No nausea, No vomiting, No stool coloration changes Genitourinary: No As described under HPI, No burning, No dysuria, No discharge , No frequency, No flank pain, No hematuria, No urgency Skin: No rash, No skin related problems, No ulcerations Psychiatric/Neurological: As described under HPI, tremors, weakness; No anxiety , No depression, No seizure, No focal weakness, No syncope Hematologic: No bleeding abnormalities TST-Zwgyrt-Doobur Hx Patient Social History Marrital Status: Employed/Student: retired Alcohol Use: Regular Use Recreational Drug Use: No Smoking Status: Former Smoker Recent Foreign Travel: No Recent Infectious Disease Expo: No Past Medical History PMH As described under Assessment. Allergies and Home Medications Allergies Coded Allergies: naproxen (Verified Allergy, Unknown, RASH, 03/04/17) Home Medications Aspirin 81 Mg Tab.chew, 81 MG PO DAILY, (Reported) Atenolol 50 Mg Tablet, 50 MG PO DAILY, (Reported) Benazepril/Hydrochlorothiazide 1 Each Tablet, 1 EACH PO DAILY, (Reported) Diltiazem HCl 120 Mg Capsule.er, 120 MG PO HS, (Reported) Diltiazem HCl 240 Mg Cap.er.24h, 240 MG PO DAILY, (Reported) Furosemide 20 Mg Tablet, 20 MG PO DAILY PRN for pedal edema, (Reported) Simvastatin 20 Mg Tablet, 20 MG PO HS, (Reported) Patient Home Medication List Home Medication List Reviewed: Yes Physical Exam-Cardiology Physical Exam Vital Signs/I&O 06/21/18 06/21/18 06/21/18 06/21/18 10:13 11:56 13:36 13:42 Temp 100.9 Pulse 174 154 152 Resp 18 37 B/P (MAP) 76/65 (69) Pulse Ox 98 100 O2 Delivery Non Rebreather Non Rebreather O2 Flow Rate 10.00 15.00 50.00 Capillary Refill : Less Than 3 Seconds Constitutional: appears stated age, AAO x 3; No apparent distress; well- developed, well-nourished HEENT: PERRL; No normal ENT inspection, No TMs normal, No pharynx normal, No scleral icterus (R), No scleral icterus (L), No pale conjunctivae (R), No pale conjunctivae (L), No photophobia, No TM abnormal (R), No TM abnormal (L), No pharyngeal erythema, No tonsillar exudate, No other, No discharge, No EOMI; hearing is well preserved; No hard of hearing; oral hygience is good; No ulceration, No xanthelasmas are seen Neck: No non-tender, No full range of motion, No supple, No normal inspection, No carotid bruit, No limited range of motion, No lymphadenopathy (R), No lymphadenopathy (L), No tender lateral, No tender midline, No thyromegaly, No other; carotid pulses are 2 + bilaterally; No with good upstrokes Respiratory: respiratory distress, chest is bilaterally symmetric, other (poor air entry bilaterally.) Cardiovascular: irregularly irregular, tachycardia, S1 and S2 Gastrointestinal: No tender, No soft, No round, No distended, No pulsatile mass , No organomegaly, No guarding, No rebound, No tenderness, No hernia, No mass, No audible bowel sounds, No abnormal bowel sounds, No abdominal bruits, No spleenomegaly, No other Rectal: deferred Extremities: non-tender, normal inspection; No clubbing, No cyanosis, No significant edema Neurologic/Psychiatric: no motor/sensory deficits, disoriented x 3, power is 5/ 5 both on sides Skin: cool, pallor Data Review Labs Laboratory Tests 06/21/18 09:49: Urine Color YELLOW, Urine Clarity CLEAR, Urine pH 5, Urine Specific Galva 1.020, Urine Protein 2+H, Urine Glucose (UA) NEGATIVE, Urine Ketones 1+H, Urine Nitrite NEGATIVE, Urine Bilirubin 1+H, Urine Urobilinogen 1, Urine Leukocyte Esterase 1+H, Urine RBC (Auto) 1+H, Urine RBC 0-2, Urine WBC 2-5, Urine Squamous Epithelial Cells 2-5, Urine Crystals NONE, Urine Bacteria MODERATEH, Urine Casts NONE, Urine Mucus NEGATIVE, Urine Culture Indicated CULTURE PENDING 06/21/18 09:57: White Blood Count 6.8, Red Blood Count 3.08L, Hemoglobin 7.9L, Hematocrit 24L, Mean Corpuscular Volume 77L, Mean Corpuscular Hemoglobin 26, Mean Corpuscular Hemoglobin Concent 33, Red Cell Distribution Width 18.0H, Platelet Count 257, Mean Platelet Volume 11.0H, Neutrophils (%) (Auto) 88H, Lymphocytes (%) (Auto) 7L, Monocytes (%) (Auto) 5, Eosinophils (%) (Auto) 0, Basophils (%) (Auto) 0, Neutrophils # (Auto) 6.0, Lymphocytes # (Auto) 0.5L, Monocytes # (Auto) 0.4, Eosinophils # (Auto) 0.0, Basophils # (Auto) 0.0, Neutrophils % (Manual) 53, Lymphocytes % (Manual) 3, Monocytes % (Manual) 4, Eosinophils % (Manual) 0, Basophils % (Manual) 0, Metamyelocytes % 4, Myelocytes % 1, Band Neutrophils 35 , Nucleated Red Blood Cells 2, Hypochromasia MODERATE, Anisocytosis MODERATE, Microcytosis SLIGHT, Target Cells SLIGHT, Prothrombin Time 15.5H, INR Comment 1.2, Activated Partial Thromboplast Time 39H, Sodium Level 124*L, Potassium Level 4.7, Chloride Level 94L, Carbon Dioxide Level 14L, Anion Gap 16H, Blood Urea Nitrogen 54H, Creatinine 2.31H, Estimat Glomerular Filtration Rate 28, BUN/ Creatinine Ratio 23, Glucose Level 77, Lactic Acid Level 4.28*H, Calcium Level 7.8L, Corrected Calcium 9.1, Total Bilirubin 0.8, Aspartate Amino Transf (AST/ SGOT) 66H, Alanine Aminotransferase (ALT/SGPT) 15, Alkaline Phosphatase 191H, Ammonia 33H, Total Protein 5.7L, Albumin 2.4L 06/21/18 10:11: Blood Gas Puncture Site R RAD, Blood Gas Patient Temperature 100.9, Arterial Blood pH 7.40, Arterial Blood Partial Pressure CO2 23L, Arterial Blood Partial Pressure O2 192H, Arterial Blood HCO3 14*L, Arterial Blood Total CO2 14.4L, Arterial Blood Oxygen Saturation 100, Arterial Blood Base Excess -10.0L, Kalpesh Test YES-POS, Blood Gas Ventilator Setting NO, Blood Gas Inspired Oxygen 15 06/21/18 11:40: Stool Occult Blood Immunoassay POSITIVEH 06/21/18 12:07: Lactic Acid Level 3.42*H Microbiology 06/21/18 C. difficile DNA Amplification, Resulted Pending 06/21/18 C. difficile GDH Antigen & Toxins - Final, Resulted 06/21/18 Influenza Types A,B Antigen (CAREY) - Final, Complete ECG Impression ECG Initial ECG Impression: Atrial Fibrillation w/RVR A/P-Cardiology Assessment/Admission Diagnosis Septic shock with lactic acidosis, Influenza, Diarrhea, Atrial fibrillation with rapid ventricular rate, Hyponatremia, chronic liver disease with hepatic encephalopathy, GI bleeding, Anemia, Alcohol withdrawal, Altered mental status, Plan Septic shock with lactic acidosis, likely pneumonia, positive influenza, aggressive fluid resuscitation with 3 L of IV fluids, however the patient was still hypotensive. Requires vasopressors. I recommended for neosynephrine because of atrial fibrillation with rapid ventricular rate. However if required levophed can be given. Broad-spectrum antibiotics. Defer treatment to Dr. Rivers and detective homicide squad. Atrial fibrillation with rapid ventricular rate, Cardizem with or without digoxin. Likely a response to severe systemic illness. Hyponatremia, likely due to end-stage liver disease. chronic liver disease with hepatic encephalopathy, likely cause of altered mental status with elevated ammonia. End-stage liver disease. With likely esophageal varices. Will likely require lactulose, however the patient already has diarrhea. GI bleeding, esophageal variceal bleed cannot be ruled out. Alcohol withdrawal, significant withdrawal will likely require withdrawal protocol with benzodiazepines. However relative contraindication of benzodiazepines in a patient with hepatic encephalopathy. Altered mental status, multifactorial. Likely due to elevated ammonia in a patient with hepatic encephalopathy. Patient also has hyponatremia and alcohol withdrawal. Critically ill patient; 30 minutes spent taking care of the patient and discussion with RN and ER attending. I discussed at length the case with Dr. Rivers the ER attending. Poor prognosis. Thank you for your consultation. Please call me if you have any questions. Hermilo Hurley MD, FACP, FACC, FSCAI, FHRS, CCDS Interventional Cardiology Cardiac Electrophysiology Vascular Medicine and Endovascular Interventions Nicola HURLEY MD Jun 21, 2018 15:41
--- NOTE | 2018-06-21 15:42 | Discharge Summary-Hospitalist ---
Diagnosis/Chief Complaint Date of Admission Jun 21, 2018 at 11:49 Date of Discharge Admission Diagnosis Assessment: Acute respiratory failure failing biPAP Confusion Acute influenza A Severe sepsis Acute renal failure Hyponatremia Severe lactic acidosis Elevated ammonia Alcoholism Acute alcohol withdrawal Diarrhea with C. difficile likely positive awaiting final results Poor prognosis and no recovery potential likely hospice candidate Plan: Confer with whether we intubate and sedate or place on comfort care protocol and sedate due to severe ETOH withdrawal with multi-system organ failure No recovery potential expected given organ failure and long-standing ETOHism Discharge Diagnosis (1) Status: Acute (2) Multisystem organ failure Status: Acute (3) Severe sepsis Status: Acute (4) Right lower lobe pneumonia Status: Acute (5) Alcohol withdrawal Status: Acute (6) Liver failure Status: Acute (7) Increased ammonia level Status: Acute (8) GI bleed Status: Acute (9) C. difficile colitis Status: Acute (10) Lactic acid acidosis Status: Acute (11) Atrial fibrillation with RVR Status: Acute (12) Influenza Status: Acute (13) Tachycardia Status: Acute (14) Tremor Status: Acute (15) Respiratory failure Status: Acute (16) Diarrhea Status: Acute (17) Acute renal failure Status: Acute (18) Alcohol dependence Status: Acute (19) Anemia Status: Acute Discharge Summary Discharge Physical Exam Allergies: Coded Allergies: naproxen (Verified Allergy, Unknown, RASH, 03/04/17) Vitals & I&Os Vital Signs Date Time Temp Pulse Resp B/P (MAP) Pulse Ox O2 Delivery O2 Flow Rate FiO2 06/21/18 13:42 152 06/21/18 13:36 37 50.00 06/21/18 13:35 100.6 84/67 (73) 84 Non Rebreather General Appearance: Other () Hospital Course Was the Problem List Reviewed?: Yes Hospital course: patient had an uneventful hospital course after admitted to ICU in multi-system organ failure. Patient deemed unrecoverable and agreed for comfort care and patient 40 minutes after arrival to ICU. Labs (last 24 hrs) Microbiology 06/21/18 Blood Culture - Preliminary, Resulted No growth 06/21/18 C. difficile DNA Amplification - Final, Complete 06/21/18 Influenza Types A,B Antigen (CAREY) - Final, Complete 06/21/18 Urine Culture - Preliminary, Resulted Klebsiella pneumoniae Patient resulted labs reviewed. Pending Labs Discussion & Recommendations Discharge Planning: <30 minutes discharge planning Discharge Home Medications: Active Scripts Active Reported Lasix (Furosemide) 20 Mg Tablet 20 Mg PO DAILY PRN Cartia Xt (Diltiazem HCl) 240 Mg Cap.er.24h 240 Mg PO DAILY Atenolol 50 Mg Tablet 50 Mg PO DAILY Benazepril-Hctz 20-12.5 mg Tab (Benazepril/Hydrochlorothiazide) 1 Each Tablet 1 Each PO DAILY Simvastatin 20 Mg Tablet 20 Mg PO HS Diltiazem ER (Diltiazem HCl) 120 Mg Capsule.er 120 Mg PO HS Aspirin 81 Mg Tab.chew 81 Mg PO DAILY Instructions to patient/family Please see electronic discharge instructions given to patient. Problem Qualifiers (1) Right lower lobe pneumonia: Pneumonia type: due to unspecified organism Qualified Codes: J18.1 - Lobar pneumonia, unspecified organism (2) Alcohol withdrawal: Complication of substance-induced condition: with delirium Qualified Codes: F10.231 - Alcohol dependence with withdrawal delirium (3) Liver failure: Liver failure chronicity: subacute Hepatic coma status: with hepatic coma Qualified Codes: K72.01 - Acute and subacute hepatic failure with coma (4) GI bleed: GI bleed type/associated pathology: unspecified gastrointestinal hemorrhage type Qualified Codes: K92.2 - Gastrointestinal hemorrhage, unspecified (5) Respiratory failure: Chronicity: acute Respiratory failure complication: hypoxia Qualified Codes : J96.01 - Acute respiratory failure with hypoxia (6) Diarrhea: Diarrhea type: unspecified type Qualified Codes: R19.7 - Diarrhea, unspecified (7) Acute renal failure: Acute renal failure type: unspecified Qualified Codes: N17.9 - Acute kidney failure, unspecified (8) Alcohol dependence: Substance use status: in withdrawal Complication of substance-induced condition: with unspecified complication Qualified Codes: F10.239 - Alcohol dependence with withdrawal, unspecified (9) Anemia: Anemia type: unspecified type Qualified Codes: D64.9 - Anemia, unspecified ALLY ESPARZA DO Jun 21, 2018 15:42
--- NOTE | 2018-06-21 17:15 | NUR ---
1335- Pt. admitted to ICU with labored breathing. BIPAP applied with RT. Tachycardia and hypotension noted. 1340- Lauri gtt ordered received. 1343- Lauri gtt @25. Hypotension still noted. 1350- Lauri gtt @50. Hypotension still noted. 1354- Lauri gtt @100. Hypotension improved slightly. 1403- Lauri gtt @150. Hypotension improved slightly more. Cardizem gtt @ 15. No effect on tachycardia noted. 1410- Dr. Perea discussing course of treatment with . 1417- Comfort care measures only. All gtt's stopped. 1435- BIPAP removed upon arrival of to unit. 1515- Time of cardiac .
[2018-06-21] MEDS ORDERED: PIPERACILLIN/TAZO 4.5 GM/NS 100 ML IV SCH ×2 (20:00)
--- NOTE | 2018-06-21 22:50 | OPERATIVE REPORT ---
DATE OF SERVICE: 06/21/2018 ATTENDING PRIMARY CARE PHYSICIAN: Dr. Paulson. PREPROCEDURE DIAGNOSES: Atrial fibrillation, tachycardia, hypotension, influenza. POSPROCEDURE DIAGNOSES: Atrial fibrillation, tachycardia, hypotension, influenza. PROCEDURE: Placement of left subclavian central venous catheter. SURGEON: Jeannine Ahsley MD CRAFT ARTIST: Guero Gaxiola APRN. ANESTHESIA: Local. ESTIMATED BLOOD LOSS: Minimal. FINDINGS: Catheter tip at superior vena cava -- right atrial junction. DISPOSITION: The patient tolerated the procedure well. The patient is a 68-year-old male who came in hypotensive with obtundation. He has a significant past medical history including atrial fibrillation with a rapid ventricular return. He also does have a history of alcohol abuse. He was influenza positive and hypotensive and will require a central venous catheter for vasopressors as well as IV antiarrhythmics. The neck and chest were prepped and draped in standard surgical fashion. A 1% lidocaine was used to anesthetize the overlying skin and subcutaneous tissue and left subclavian region. Left subclavian vein was then cannulated with drawing of venous blood and the guidewire was then inserted without any resistance. The cannulating needle removed and a small skin incision was made using 11 blade. A tract was then created using a venous dilator. A triple lumen central venous catheter was then placed over the guidewire using the Seldinger technique and the guidewire was removed. All three ports sung venous blood and saline pushed in without any resistance. The catheter was then sutured to the skin using 3-0 silk sutures and covered with a sterile Op-Site. The patient tolerated the procedure well. We will get a post-procedure chest x-ray. Job ID: [id number] DocumentID: [id number] Dictated Date: 06/21/2018 11:31:37 Consumer Recruiter Date: 06/21/2018 22:49:39 Dictated By: JEANNINE ASHLEY MD
[2018-06-22] MEDS ORDERED: MAGNESIUM 1 GM/100 ML IVPB 100 ML IV SCH (06:00)
[2018-06-22] MEDS ORDERED: POTASSIUM CL 10MEQ/50ML IVPB 50 ML IV SCH (06:00)
[2018-06-22] MEDS ORDERED: KCL 20 MEQ TAB (K-DUR) PO SCH (06:00)
== END 2018-06-21 17:00 | disposition expired | DRG 871 ==
LOC: EDUNIT# 09:48 → ER 09:49 → ICU 11:49
PROVIDERS: ADMIT Internal Medicine; ATTEND Internal Medicine
PROC: 02HV33Z Insertion of Infusion Device into Superior Vena Cava, Percutaneous Approach (ICD-10-PCS; principal; 2018-06-21)
DX: A41.9 Sepsis, unspecified organism (principal); R65.21 Severe sepsis with septic shock; J11.00 Influenza due to unidentified influenza virus with unspecified type of pneumonia; J18.1 Lobar pneumonia, unspecified organism; N17.9 Acute kidney failure, unspecified; J96.01 Acute respiratory failure with hypoxia; K72.01 Acute and subacute hepatic failure with coma; Z66 Do not resuscitate; Z51.5 Encounter for palliative care; F10.239 Alcohol dependence with withdrawal, unspecified; G93.41 Metabolic encephalopathy; E87.1 Hypo-osmolality and hyponatremia; K76.9 Liver disease, unspecified; I48.91 Unspecified atrial fibrillation; I10 Essential (primary) hypertension; D64.9 Anemia, unspecified; R19.7 Diarrhea, unspecified; K92.2 Gastrointestinal hemorrhage, unspecified; M19.90 Unspecified osteoarthritis, unspecified site; M54.9 Dorsalgia, unspecified; Z87.891 Personal history of nicotine dependence
CPT/HCPCS: 36415; 71045; 80053; 81000; 82140; 82274; 82805; 83605; 85007; 85027; 85610; 85730; 86850; 86900; 86901; 86920; 87015; 87040; 87045; 87046; 87077; 87088; 87186; 87324; 87493; 87804; 87899; 93005; 94640; 94660